=== PATIENT | female | born 1940 | race Caucasian/White ===

== ENCOUNTER → 2017-09-19 09:21 | Outpatient (CLI) | payer MEDICARE, SELFPAY ==
--- NOTE | 2017-09-19 | DI.RAD.S_ITS ---
PROCEDURE: XR SACROILIAC JOINT MIN 3V INDICATIONS: 77 year-old female with low back pain. TECHNIQUE: 3 views of the sacroiliac joints were acquired. COMPARISON: None. 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 No bony erosions or ankylosis. No suspicious bony lesions. No fractures. Soft tissues: Several right lower quadrant surgical clips are present. Overlying bowel gas pattern is normal. No suspicious soft tissue densities. IMPRESSION: Minimal bilateral sacroiliac joint degeneration. Dictated by: Elder Rivero M.D. on 09/19/2017 at 10:44 Approved by: Elder Rivero M.D. on 09/19/2017 at 10:46
== END ==
PROVIDERS: PCP Internal Medicine; Visit Provider Internal Medicine
DX: M47.818 Spondylosis without myelopathy or radiculopathy, sacral and sacrococcygeal region (principal); M54.5 Low back pain
CPT/HCPCS: 72202

== ENCOUNTER → 2017-10-18 08:50 | Outpatient (CLI) | payer MEDICARE, SELFPAY ==
[2017-10-18 10:15] LABS: Thyroid Stimulating Hormone 3.46 uIU/mL (0.47-4.68)
== END ==
PROVIDERS: PCP Internal Medicine; Visit Provider Internal Medicine
DX: E78.5 Hyperlipidemia, unspecified (principal); I10 Essential (primary) hypertension
CPT/HCPCS: 36415; 84443

== ENCOUNTER → 2018-05-03 13:22 | Outpatient (CLI) | payer MEDICARE, SELFPAY ==
[2018-05-03 13:53] LABS: Add Manual Diff / Slide Review NO; Basophils Absolute Auto 0 /uL (0-100); Basophils Percent Auto 0.6 % (0-2); Eosinophils Absolute Auto 300 /uL (0-450); Eosinophils Percent Auto 4.6 % (2-4); Hematocrit 44.1 % (36-46); Hemoglobin 14.8 g/dL (12.0-16.0); Lymphocytes Absolute Auto 1200 /uL (1100-4500); Mean Corpuscular HGB Conc 33.5 % (30-36); Mean Corpuscular Hemoglobin 32.4 PG (26-34); Mean Corpuscular Volume 96.5 fL (80-100); Monocytes Absolute Auto 600 /uL (0-900); Monocytes Percent Auto 9.1 % (3-14); Neutrophils Absolute Auto 4100 /uL (1500-7000); Neutrophils Percent Auto 66.7 % (50-75); Platelet Count 203 X10^3/uL (150-400); Red Blood Cell Count 4.57 X10^6/uL (4.0-5.2); Red Cell Distribution Width 13.5 % (11.6-14.8); White Blood Cell Count 6.2 X10^3/uL (4.5-11.0)
[2018-05-03 14:40] LABS: Alanine Aminotransferase 36 IU/L (9-52); Albumin 4.3 g/dL (3.5-5.0); Albumin Globulin Ratio 1.7 (1.0-2.8); Alkaline Phosphatase 72 U/L (38-126); Aspartate Aminotransferase 24 IU/L (14-36); BUN Creatinine Ratio 25.7 (6-22); Bilirubin Total 0.3 mg/dL (0.2-1.3); Blood Urea Nitrogen 18 mg/dL (7-17); Calcium 9.8 mg/dL (8.4-10.2); Carbon Dioxide 27 mmol/L (22-32); Chloride 103 mmol/L (98-107); Cholesterol 194 mg/dL (140-199); Estimated Glomerular Filt Rate > 60.0 mL/min (>60); Globulin 2.5 g/dL (1.7-4.1); Glucose 93 mg/dL (80-110); HDL Cholesterol 68 mg/dL (40-60); HEMOLYSIS < 15 (0-50); LDL Cholesterol Calculated 87 mg/dL (<100); Sodium 139 mmol/L (137-145); Total Protein 6.8 g/dL (6.3-8.2); Triglycerides 197 mg/dL (35-150)
[2018-05-03 14:55] LABS: Free T3, Triiodothyronine Free 2.96 pg/mL (2.77-5.27); Free T4, Direct Thyroxine 1.28 ng/dL (0.78-2.19)
[2018-05-03 15:09] LABS: Thyroid Stimulating Hormone 3.63 uIU/mL (0.47-4.68)
== END ==
PROVIDERS: PCP Internal Medicine; Visit Provider Internal Medicine
DX: I47.1 Supraventricular tachycardia (principal); E78.5 Hyperlipidemia, unspecified; E03.9 Hypothyroidism, unspecified; M19.079 Primary osteoarthritis, unspecified ankle and foot
CPT/HCPCS: 36415; 80053; 80061; 84439; 84443; 84481; 85025

== ENCOUNTER 2018-10-11 06:52 | Emergency (ER) | payer MEDICARE, SELFPAY ==
[2018-10-11 07:00] VITALS: BP 158/91; PULSE 77; RESP 18; TEMP 36.8; O2SAT 98; BMI 28.3
--- NOTE | 2018-10-11 07:00 | DI.RAD.S_ITS ---
PROCEDURE: XR CHEST 1V INDICATIONS: Chest pain TECHNIQUE: One view of the chest was acquired. COMPARISON: [facility], , CHEST 1 VIEW, 06/08/2017, 21:41. FINDINGS: Surgical changes and devices: Surgical clips projecting in the lower right hemithorax Lungs and pleura: No acute consolidation. Scattered subsegmental atelectasis and/or scarring. No pleural effusions or pneumothorax. Mediastinum: Mediastinal contours appear normal. Heart size is normal. Bones and chest wall: No suspicious bony lesions. Overlying soft tissues appear unremarkable. IMPRESSION: No acute disease Dictated by: Carlos Holt M.D. on 10/11/2018 at 9:11 Approved by: Carlos Holt M.D. on 10/11/2018 at 9:13
[2018-10-11 07:22] LABS: Add Manual Diff / Slide Review NO; Basophils Absolute Auto 0 /uL (0-100); Basophils Percent Auto 0.5 % (0-2); Eosinophils Absolute Auto 300 /uL (0-450); Eosinophils Percent Auto 5.4 % (2-4); Hematocrit 43.6 % (36-46); Hemoglobin 14.5 g/dL (12.0-16.0); Lymphocytes Absolute Auto 1100 /uL (1100-4500); Mean Corpuscular HGB Conc 33.3 % (30-36); Mean Corpuscular Hemoglobin 32.5 PG (26-34); Mean Corpuscular Volume 97.6 fL (80-100); Monocytes Absolute Auto 600 /uL (0-900); Monocytes Percent Auto 11.9 % (3-14); Neutrophils Absolute Auto 3000 /uL (1500-7000); Neutrophils Percent Auto 60.2 % (50-75); Platelet Count 183 X10^3/uL (150-400); Red Blood Cell Count 4.47 X10^6/uL (4.0-5.2); Red Cell Distribution Width 13.8 % (11.6-14.8)
--- NOTE | 2018-10-11 07:29 | ED_ITS ---
HPI - General Adult General Chief complaint: Hypertension Stated complaint: High blood pressure x2days Time Seen by Provider: 10/11/18 06:58 Source: patient Mode of arrival: ambulatory Limitations: no limitations History of Present Illness HPI narrative: This is a 79-year-old female who comes in with complaints of e levated blood pressure. Patient states that she has noted that her blood pressure has fell elevated recently. She states usually just feels a little agitated. Today she checked her blood pressure and it was greater than 200 systolic. She rejected and had elevated. This was at 5:30 a.m. in the morning when she woke up. Patient states that she has noticed occasionally that she has had a little bit more frequent heartburn. She states she has had in the past but not with this frequency. She states that she usually noted after meals but does not always have to be at that time. Patient has also noticed a little tingling in her right arm. She denies any pain or pressure down the arm. She denies any chest pressure or discomfort. She denies any symptoms currently. She notices the tingling in her arm typically when she is lying in bed. She denies any syncope, no dizziness, no nausea or vomiting. She denies any shortness of breath. No cold cough or congestion. She normally has little bit of swelling in her lower extremities which is its normal level of swelling. She denies any pain or weakness in her upper extremity. She did have an ablation 2 years ago and states that she has been asymptomatic since then. She does take metoprolol daily. She stop taking her aspirin, she does take thyroid medication in the rather pain as needed. She has a history of breast cancer with right mastectomy and reconstruction at a left lumpectomy and radiation. And cholecystectomy around 2012. No allergies, no tobacco, occasional alcohol, no illicit Dr. Ellis is her primary care. Dr. randy tamez and Dr. Rojas were Cardiology team. Related Data Home Medications Medication Instructions Recorded Confirmed ASPIRIN (#ASPIR 81) 81 mg PO Q DAY #0 01/18/12 CA PANTOTHENATE/FOLIC ACID/VIT 1 tab PO Q DAY #0 01/18/12 (MULTIVITAMIN) metoprolol tartrate [Lopressor] 25 mg PO BID #0 01/18/12 CALCIUM CITRATE/VITAMIN D3 500 mg PO QDAY #0 08/03/12 (Citracal-Vit D 250 MG-200 Tab) lorazepam PRN #0 01/27/16 vitamin D3-folic acid [Ciferex] #0 01/27/16 ibuprofen [Advil] #0 06/08/17 Review of Systems Review of Systems ROS Unobtainable: All systems reviewed & are unremarkable except as noted in HPI and below Constitutional Denies chills, Denies fever(s), Denies lethargy and Denies weakness ENT Ears, Nose, Mouth, and Throat: Denies neck pain Cardiovascular Denies chest pain, Denies chest pain at rest, Denies chest pain with activity, Denies diaphoresis, Denies syncope, Reports pedal edema, Denies irregular heart rhythm, Denies lightheadedness, Reports radiating jaw, neck or arm pain (tingling in arm), Denies palpitations, Denies dyspnea, Denies dyspnea on exertion and Denies orthopnea Respiratory Denies chest congestion, Denies cough, Denies excessive phlegm production, Denies dyspnea and Denies dyspnea on exertion Gastrointestinal Gastrointestinal: Denies abdominal pain, Denies change in bowel habits, Denies diarrhea, Denies nausea and Denies vomiting Genitourinary Denies urinary frequency, Denies dysuria, Denies urinary hesitancy and Denies urinary urgency Musculoskeletal Reports as per HPI, Denies limited range of motion, Denies muscle weakness, Denies neck pain, Denies numbness and Reports tingling Integumentary/Breasts Denies rash Neurologic Reports as per HPI, Denies syncope, Denies focal weakness, Denies numbness, Denies sensory deficit, Reports tingling and Denies weakness Endocrine Denies palpitations PFSH Surgical History (Updated 10/11/18 @ 07:38 by Bettye Frazier DO) H/O cardiac radiofrequency ablation (Chronic) H/O lumpectomy (Chronic) H/O mastectomy (Chronic) Hx of cholecystectomy (Chronic) Social History (Updated 10/11/18 @ 07:38 by Bettye Frazier DO) marital status: Smoking Status: Never smoker alcohol intake: current substance use type: does not use Social History (Updated 10/11/18 @ 07:38 by Bettye Frazier DO) marital status: Smoking Status: Never smoker alcohol intake: current substance use type: does not use Exam Narrative Exam Narrative: GENERAL: Alert and oriented x three, well-nourished, well-appearing female in no acute distress. HEENT: Head normocephalic, atraumatic, EOMI, pupils reactive, face symmetric, moist mucous membranes NECK: Supple, full range of motion CARDIOVASCULAR: Regular rate and rhythm without murmurs, rubs or gallops. RESPIRATORY: Breath sounds equal bilaterally, no wheezes rales or rhonchi. ABDOMEN: Soft, nontender. Normoactive bowel sounds all 4 quadrants. No guarding or rebound, rigidity, no mass : No CVA tenderness EXTREMITIES: Normal range of motion, trace edema bilateral lower extremities. Neurovascularly intact NEUROLOGICAL: Cranial nerves II through XII grossly intact. Moving all extremities SKIN: Warm, dry, no petechiae, no rashes or lesions. Initial Vital Signs Initial Vital Signs: Vital Signs Temperature 98.2 F 10/11/18 07:00 Pulse Rate 77 10/11/18 07:00 Respiratory Rate 18 10/11/18 07:00 Blood Pressure 158/91 H 10/11/18 07:00 Pulse Oximetry 98 10/11/18 07:00 Scores HEART Score Heart Score history: Slightly Suspicious Heart Score EKG: Non-Specific repolarization disturbance Heart Score Age: > or = 65 years old Heart Score risk factors: 1-2 risk factors Course Orders Ordered: ED Orders 10/11/18 06:58 EKG-12 Lead Stat 10/11/18 07:00 XR chest 1V Stat 10/11/18 07:10 Complete Blood Count AUTO DIFF Stat Comprehensive Metabolic Panel Stat Lipase Stat Partial Thromboplastin Time Stat Prothrombin Time INR Stat Thyroid Stimulating Hormone Stat Troponin I Stat Vital Signs - 8 hr 10/11/18 07:00 10/11/18 07:30 10/11/18 08:11 Temperature 98.2 F Pulse Rate 77 70 69 Respiratory Rate 18 16 14 Blood Pressure 158/91 H Blood Pressure [Left Arm] 135/77 144/64 H Pulse Oximetry 98 98 100 10/11/18 08:41 Temperature Pulse Rate 70 Respiratory Rate 15 Blood Pressure Blood Pressure [Left Arm] 158/72 H Pulse Oximetry Medical Decision Making Lab Data Lab results reviewed: Yes I reviewed the patient's lab results. Result diagrams: 10/11/18 07:10 10/11/18 07:10 Lab Results 07/18/19 07/18/19 07/18/19 Range/Units 07:10 07:10 07:10 WBC 5.0 (4.5-11.0) X10^3/uL RBC 4.47 (4.0-5.2) X10^6/uL Hgb 14.5 (12.0-16.0) g/dL Hct 43.6 (36-46) % MCV 97.6 (80-100) fL MCH 32.5 (26-34) PG MCHC 33.3 (30-36) % RDW 13.8 (11.6-14.8) % Plt Count 183 (150-400) X10^3/uL Neut % (Auto) 60.2 (50-75) % Lymph % (Auto) 22.0 L (25-40) % [place] % (Auto) 11.9 (3-14) % Eos % (Auto) 5.4 H (2-4) % Baso % (Auto) 0.5 (0-2) % Neut # (Auto) 3000 (0928-5608) /uL Lymph # (Auto) 1100 (0722-4702) /uL [place] # (Auto) 600 (0-900) /uL Eos # (Auto) 300 (0-450) /uL Baso # (Auto) 0 (0-100) /uL PT 11.0 (10.1-12.7) SECONDS INR 1.0 (0.9-1.3) APTT 32 (26.4-36.2) SECONDS Sodium 141 (137-145) mmol/L Potassium 4.1 (3.4-5.1) mmol/L Chloride 107 (98-107) mmol/L Carbon Dioxide 26 (22-32) mmol/L BUN 16 (7-17) mg/dL Creatinine 0.70 (0.52-1.04) mg/dL Estimated GFR > 60.0 (>60) mL/min BUN/Creatinine Ratio 22.9 H (6-22) Glucose 101 (80-110) mg/dL Calcium 9.5 (8.4-10.2) mg/dL Total Bilirubin 0.7 (0.2-1.3) mg/dL AST 27 (14-36) IU/L ALT 29 (9-52) IU/L Alkaline Phosphatase 64 (38-126) U/L Troponin I (0.01-0.034) ng/mL Total Protein 6.9 (6.3-8.2) g/dL Albumin 4.3 (3.5-5.0) g/dL Globulin 2.6 (1.7-4.1) g/dL Albumin/Globulin Ratio 1.7 (1.0-2.8) Lipase (23-300) U/L TSH (0.47-4.68) uIU/mL 10/11/18 10/11/18 Range/Units 07:10 07:10 WBC (4.5-11.0) X10^3/uL RBC (4.0-5.2) X10^6/uL Hgb (12.0-16.0) g/dL Hct (36-46) % MCV (80-100) fL MCH (26-34) PG MCHC (30-36) % RDW (11.6-14.8) % Plt Count (150-400) X10^3/uL Neut % (Auto) (50-75) % Lymph % (Auto) (25-40) % [place] % (Auto) (3-14) % Eos % (Auto) (2-4) % Baso % (Auto) (0-2) % Neut # (Auto) (2387-0399) /uL Lymph # (Auto) (0159-7067) /uL [place] # (Auto) (0-900) /uL Eos # (Auto) (0-450) /uL Baso # (Auto) (0-100) /uL PT (10.1-12.7) SECONDS INR (0.9-1.3) APTT (26.4-36.2) SECONDS Sodium (137-145) mmol/L Potassium (3.4-5.1) mmol/L Chloride (98-107) mmol/L Carbon Dioxide (22-32) mmol/L BUN (7-17) mg/dL Creatinine (0.52-1.04) mg/dL Estimated GFR (>60) mL/min BUN/Creatinine Ratio (6-22) Glucose (80-110) mg/dL Calcium (8.4-10.2) mg/dL Total Bilirubin (0.2-1.3) mg/dL AST (14-36) IU/L ALT (9-52) IU/L Alkaline Phosphatase (38-126) U/L Troponin I < 0.012 (0.01-0.034) ng/mL Total Protein (6.3-8.2) g/dL Albumin (3.5-5.0) g/dL Globulin (1.7-4.1) g/dL Albumin/Globulin Ratio (1.0-2.8) Lipase 97 (23-300) U/L TSH 3.45 (0.47-4.68) uIU/mL Imaging Data Chest x-ray: Attestation: I personally reviewed and interpreted this imaging study as follows: My impression: cardiomegaly,m FB consistent with past surgical history, no infitate, no effusion, no fx. no pneumothorax, no medistanal widening. Radiologist's impression: [address] [address] XRay Report Signed Patient: Delmy Veras [facility]#: [id number] : 1940Acct:[id number] Age/Sex: 78 / FDate of Service: 10/11/18 Loc: ED Accession Number: [id number] Procedure: XR chest 1V Ordering Provider: Daniele Rae D.O. PROCEDURE: XR CHEST 1V INDICATIONS: Chest pain TECHNIQUE: One view of the chest was acquired. COMPARISON: [facility] , CHEST 1 VIEW, 06/08/2017, 21:41. FINDINGS: Surgical changes and devices: Surgical clips projecting in the lower right hemithorax Lungs and pleura: No acute consolidation. Scattered subsegmental atelectasis and/or scarring. No pleural effusions or pneumothorax. Mediastinum: Mediastinal contours appear normal. Heart size is normal. Bones and chest wall: No suspicious bony lesions. Overlying soft tissues appear unremarkable. IMPRESSION: No acute disease Dictated by: Carlos Holt M.D. on 10/11/2018 at 9:11 Approved by: Carlos Holt M.D. on 10/11/2018 at 9:13 ECG Data Attestation: I personally reviewed and interpreted this ECG as follows: Prior ECG tracings: available for review Interpretation: Sinus rhythm rate of 74 P are 205 QRS of 103 and QTC of 393. Patient has Q-wave in [address] and AVF. No other ST changes appreciated. Patient has prior EKG from 06/09/2017 which appears similar and shows same changes in leads 3 and AVF. MDM Narrative Medical decision making narrative: Discussed with patient I would recommend at minimum a repeat 2 hour troponin and EKG. Her symptoms are fairly vague under concern is for her blood pressure which was slightly elevated when she arrived but not as high as she was concerned at home. We did discuss that there is a good possibility this could be cardiac in nature, recommended she follow-up in the short term with her primary care discuss stress testing. Patient is comfortable with this plan. She does not wish to do repeat troponin she has other activities that she needs to take care of today. Her EKG does not show any acute changes, troponin is negative with normal blood work otherwise. Chest x-ray does show cardiomegaly but does appear similar to prior. Discharge Plan Departure Patient Disposition: Home Clinical Impression: Hypertension Discharge Date/Time: 10/11/18 08:41 Interventions: ED Discharge Assessment Last Done: 10/11/18 08:41 Instructions: DI for High Blood Pressure Activity Restrictions/Additional Instructions: Follow-up with your primary care physician in the next 24-48 hours for recheck. I have recommend discussing stress testing with them. Continue home medication as prescribed. I do recommend taking a daily 81 mg aspirin until cleared by your physician. Return to the emergency department for new or worsening symptoms, new chest pain or pressure, shortness of breath, lightheadedness or passing-out, persistent vomiting, abdominal pain, black or bloody stools, new weakness numbness or difficulty with use of your extremities or other new or concerning symptoms. Prescriptions: No Action metoprolol tartrate [Lopressor] 50 MG tablet 25 mg PO BID Qty: 0 RF: 0 CA PANTOTHENATE/FOLIC ACID/VIT (MULTIVITAMIN) 1 tab PO Q DAY Qty: 0 RF: 0 ASPIRIN (#ASPIR 81) 81 mg PO Q DAY Qty: 0 RF: 0 CALCIUM CITRATE/VITAMIN D3 (Citracal-Vit D 250 MG-200 Tab) 500 mg PO QDAY Qty: 0 RF: 0 lorazepam 0.5 MG tablet PRNQty: 0 RF: 0 vitamin D3-folic acid [Ciferex] 3,775 UNITS/1 MG capsule Qty: 0 RF: 0 ibuprofen [Advil] 200 MG tablet Qty: 0 RF: 0 Referrals: Michael Ellis MD [Primary Care Provider] -
[2018-10-11 07:30] VITALS: BP 135/77; PULSE 70; RESP 16; O2SAT 98
[2018-10-11 07:31] LABS: PTT Partial Thromboplastin Tim 32 SECONDS (26.4-36.2)
[2018-10-11 07:32] LABS: Lipase 97 U/L (23-300)
[2018-10-11 07:33] LABS: Alanine Aminotransferase 29 IU/L (9-52); Albumin 4.3 g/dL (3.5-5.0); Albumin Globulin Ratio 1.7 (1.0-2.8); Alkaline Phosphatase 64 U/L (38-126); Aspartate Aminotransferase 27 IU/L (14-36); BUN Creatinine Ratio 22.9 (6-22); Bilirubin Total 0.7 mg/dL (0.2-1.3); Blood Urea Nitrogen 16 mg/dL (7-17); Calcium 9.5 mg/dL (8.4-10.2); Carbon Dioxide 26 mmol/L (22-32); Chloride 107 mmol/L (98-107); Estimated Glomerular Filt Rate > 60.0 mL/min (>60); Globulin 2.6 g/dL (1.7-4.1); Glucose 101 mg/dL (80-110); HEMOLYSIS < 15 (0-50); Potassium 4.1 mmol/L (3.4-5.1); Sodium 141 mmol/L (137-145); Total Protein 6.9 g/dL (6.3-8.2)
[2018-10-11 07:44] LABS: Troponin I < 0.012 ng/mL (0.01-0.034)
[2018-10-11 08:11] VITALS: BP 144/64; PULSE 69; RESP 14; O2SAT 100
[2018-10-11 08:32] LABS: Thyroid Stimulating Hormone 3.45 uIU/mL (0.47-4.68)
[2018-10-11 08:41] VITALS: BP 158/72; PULSE 70; RESP 15
== END 2018-10-11 08:41 | disposition home or self-care (01) ==
PROVIDERS: Emergency Medicine; Emergency Provider Emergency Medicine; PCP Internal Medicine
DX: I10 Essential (primary) hypertension (principal); R20.0 Anesthesia of skin; R12 Heartburn
CPT/HCPCS: 36591; 71045; 80053; 83690; 84443; 84484; 85025; 85610; 85730; 93005; 99283; 99285

== ENCOUNTER → 2018-12-20 09:26 | Outpatient (CLI) | payer MEDICARE, SELFPAY ==
[2018-12-20 10:52] LABS: Add Manual Diff / Slide Review NO; Basophils Absolute Auto 0 /uL (0-100); Basophils Percent Auto 0.5 % (0-2); Eosinophils Absolute Auto 200 /uL (0-450); Eosinophils Percent Auto 4.6 % (2-4); Hematocrit 43.1 % (36-46); Hemoglobin 14.5 g/dL (12.0-16.0); Lymphocytes Absolute Auto 900 /uL (1100-4500); Mean Corpuscular HGB Conc 33.6 % (30-36); Mean Corpuscular Hemoglobin 33.1 PG (26-34); Mean Corpuscular Volume 98.3 fL (80-100); Monocytes Absolute Auto 600 /uL (0-900); Monocytes Percent Auto 11.1 % (3-14); Neutrophils Absolute Auto 3400 /uL (1500-7000); Neutrophils Percent Auto 66.8 % (50-75); Platelet Count 187 X10^3/uL (150-400); Red Blood Cell Count 4.39 X10^6/uL (4.0-5.2); Red Cell Distribution Width 12.8 % (11.6-14.8); White Blood Cell Count 5.1 X10^3/uL (4.5-11.0)
[2018-12-20 11:20] LABS: Cholesterol 197 mg/dL (140-199); HDL Cholesterol 66 mg/dL (40-60); LDL Cholesterol Calculated 110 mg/dL (<100); Triglycerides 104 mg/dL (35-150)
[2018-12-20 11:24] LABS: High Sensitivity CRP - Cardiac 5.9 mg/L (1.0-3.0)
[2018-12-20 11:34] LABS: Alanine Aminotransferase 30 IU/L (9-52); Albumin 4.3 g/dL (3.5-5.0); Albumin Globulin Ratio 1.7 (1.0-2.8); Alkaline Phosphatase 62 U/L (38-126); Aspartate Aminotransferase 31 IU/L (14-36); BUN Creatinine Ratio 24.3 (6-22); Bilirubin Total 0.5 mg/dL (0.2-1.3); Blood Urea Nitrogen 17 mg/dL (7-17); Calcium 10.2 mg/dL (8.4-10.2); Carbon Dioxide 29 mmol/L (22-32); Chloride 103 mmol/L (98-107); Estimated Glomerular Filt Rate > 60.0 mL/min (>60); Globulin 2.5 g/dL (1.7-4.1); Glucose 66 mg/dL (80-110); HEMOLYSIS < 15 (0-50); Potassium 4.8 mmol/L (3.4-5.1); Sodium 141 mmol/L (137-145); Total Protein 6.8 g/dL (6.3-8.2)
[2018-12-20 11:37] LABS: Vitamin D 25 Hydroxy (D3) 65.4 ng/mL (30.0-100.0)
[2018-12-20 12:04] LABS: TSH w/ Reflex to FT4 3.92 uIU/mL (0.47-4.68)
== END ==
PROVIDERS: PCP Internal Medicine; Visit Provider Internal Medicine
DX: I47.1 Supraventricular tachycardia (principal)
CPT/HCPCS: 36415; 80053; 80061; 82306; 84443; 85025; 86140

== ENCOUNTER → 2019-01-28 08:05 | Outpatient (CLI) | payer MEDICARE, SELFPAY ==
--- NOTE | 2019-01-28 09:25 | PM.TREADMILL ---
Cardiac Stress Test Report Referral & Results Date Patient Seen: 01/28/19 Requesting provider: Maegan Canas Indication: SVT Rest ECG: Unremarkable Procedure Note: Today following both written and verbal informed consent the patient was exercised according to a standard Delfino protocol patient went for a total of 5 minutes 42 seconds achieving a maximum heart rate of 165 maximum systolic blood pressure of 190. This is approximately 7.0 METS. Exercise was terminated at this point because of targets were met. Patient was also given Cardiolite through a previously started Hep-Lock IV by the diagnostic imaging staff approximately 1 minute prior to the cessation of exercise. There are no ST-T segment changes Normal heart rate and blood pressure response to exercise Functional aerobic impairment rated-10% on the active scale In recovery come patient had frequent PVCs including what appeared to be a 15-20 beat run of ventricular tachycardia that was asymptomatic and aborted with a cough, and then PVCs seemed to disappear No supraventricular dysrhythmias identified Impression: No evidence of ischemia Excellent exercise capacity Please see perfusion imaging report as well for details regarding possible ischemia Ventricular dysrhythmia as above, suggest 7-14 day cardiac exercise specialist as well Please note: Actual ECG tracings can be found in the PACS system.
--- NOTE | 2019-01-30 14:02 | DI.NM.S_ITS ---
DATE OF SERVICE: 01/28/2019 PROCEDURE PERFORMED: Exercise treadmill stress and rest myocardial perfusion imaging study with gating to assess ejection fraction and regional wall motion. ORDERING PROVIDER: Maegan Canas MD INDICATIONS: The patient is a 78-year-old female with exertional fatigue and arrhythmias. EXERCISE TREADMILL TESTING: The patient was able to exercise for a total of 5 minutes 42 seconds on a standard Delfino protocol suggesting good exercise capacity with an SAL of -10%. She had a normal heart rate and blood pressure response, achieving a maximum heart rate of 143 bpm (100% of her predicted maximum). She had no chest discomfort. Her resting ECG appears normal. With stress, there are no obvious ST-segment shifts. In recovery, she has frequent wide QRS beats, at times consecutively, although not fully recorded. These may represent PVCs or aberrant conduction. There were no other arrhythmias. At 4 minutes 35 seconds of exercise, at heart rate of 143 bpm, 25.1 mCi of technetium-99 Myoview was injected, and the patient was imaged 20 minutes later using a gated acquisition protocol. She returned to days later and was reinjected with an additional 23.6 mCi of technetium-99 Myoview and was imaged 30 minutes later, again using a gated SPECT acquisition protocol. FINDINGS: 1. Raw Data: There is fairly good myocardial tracer uptake. The lung/heart ratio is normal at 0.39 with a normal TID ratio of 0.75. 2. Quantitative Gated SPECT: Post stress ejection fraction appears normal with an ejection fraction of 77% without any focal wall motion abnormality. The resting ejection fraction is 65% with a resting end-diastolic volume of 96 mL. 3. Myocardial Perfusion Imaging: Post stress supine images show a normal perfusion pattern without any perfusion defects, supported by normal perfusion imaging in the prone position. The resting images show a similar perfusion pattern without any significant areas of improvement. IMPRESSION: 1. Normal myocardial perfusion study. 2. No evidence for any myocardial ischemia or previous myocardial infarction. 3. Normal left ventricular systolic function without regional wall motion abnormality. 4. Good exercise capacity without angina. In recovery, she had frequent wide QRS beats which could reflect premature ventricular contractions (PVCs), at times consecutively, or aberrant conduction. Clinical correlation is recommended. 5. Compared to the previous myocardial perfusion study of 07/22/2014, perfusion imaging appears identical with a previousl post stress ejection fraction of 81% and no perfusion abnormalities seen then. There has been no significant change. Delmy Veras - ROXANE/renny/ doc#: [id number]/job#: [id number] dd: 01/30/2019 12:54:00 dt: 01/30/2019 13:46:00 DICTATING MD/COPIES TO: Bill Fontanez MD; Miriam Canas MD COPIES MNE: RENEE GEORGES
== END ==
PROVIDERS: PCP Internal Medicine; Visit Provider Internal Medicine
DX: I47.1 Supraventricular tachycardia (principal); R53.83 Other fatigue; E78.5 Hyperlipidemia, unspecified; M62.89 Other specified disorders of muscle
CPT/HCPCS: 78452; 93016; 93017; 93018; A9502

== ENCOUNTER → 2019-02-05 14:14 | Outpatient (ROUT) | payer MEDICARE, SELFPAY ==
[2019-02-05 14:36] LABS: Blood Urea Nitrogen 14 mg/dL (7-17); Carbon Dioxide 28 mmol/L (22-32); Chloride 103 mmol/L (98-107); Estimated Glomerular Filt Rate > 60.0 mL/min (>60); Glucose 93 mg/dL (80-110); HEMOLYSIS < 15 (0-50); Potassium 4.4 mmol/L (3.4-5.1); Sodium 140 mmol/L (137-145)
[2019-02-05 14:54] LABS: Free T3, Triiodothyronine Free 3.72 pg/mL (2.77-5.27); Free T4, Direct Thyroxine 1.22 ng/dL (0.78-2.19)
[2019-02-05 15:07] LABS: Thyroid Stimulating Hormone 5.73 uIU/mL (0.47-4.68)
== END ==
PROVIDERS: PCP Internal Medicine; Visit Provider Internal Medicine
DX: F41.9 Anxiety disorder, unspecified (principal); E78.5 Hyperlipidemia, unspecified; E03.9 Hypothyroidism, unspecified; I47.1 Supraventricular tachycardia; M19.079 Primary osteoarthritis, unspecified ankle and foot; I10 Essential (primary) hypertension
CPT/HCPCS: 80048; 84439; 84443; 84481

== ENCOUNTER → 2019-12-10 15:00 | Outpatient (ROUT) | payer MEDICARE, SELFPAY ==
[2019-12-10 15:20] LABS: Hematocrit 43.4 % (36-46); Hemoglobin 14.5 g/dL (12.0-16.0); Mean Corpuscular HGB Conc 33.3 % (30-36); Mean Corpuscular Hemoglobin 32.6 PG (26-34); Mean Corpuscular Volume 97.9 fL (80-100); Platelet Count 194 X10^3/uL (150-400); Red Blood Cell Count 4.43 X10^6/uL (4.0-5.2); Red Cell Distribution Width 13.3 % (11.6-14.8); White Blood Cell Count 5.6 X10^3/uL (4.5-11.0)
[2019-12-10 15:29] LABS: Alanine Aminotransferase 26 IU/L (<35); Albumin 4.1 g/dL (3.5-5.0); Albumin Globulin Ratio 1.6 (1.0-2.8); Alkaline Phosphatase 71 U/L (38-126); Aspartate Aminotransferase 29 IU/L (14-36); BUN Creatinine Ratio 24.6 (6-22); Bilirubin Total 0.5 mg/dL (0.2-1.3); Blood Urea Nitrogen 17 mg/dL (7-17); Calcium 9.7 mg/dL (8.4-10.2); Carbon Dioxide 30 mmol/L (22-32); Chloride 105 mmol/L (98-107); Estimated Glomerular Filt Rate > 60.0 mL/min (>60); Globulin 2.6 g/dL (1.7-4.1); Glucose 88 mg/dL (80-110); HEMOLYSIS < 15 (0-50); Potassium 4.8 mmol/L (3.4-5.1); Sodium 140 mmol/L (137-145); Total Protein 6.7 g/dL (6.3-8.2)
[2019-12-10 15:30] LABS: Neutrophils Absolute Manual 3752 /uL (3000-5900); RBC Morphology Normal Morphology; Total Cells Counted 100
[2019-12-10 15:59] LABS: TSH w/ Reflex to FT4 7.33 uIU/mL (0.47-4.68)
[2019-12-10 16:58] LABS: Free T4, Direct Thyroxine 1.01 ng/dL (0.78-2.19)
[2019-12-11 07:56] LABS: Cancer Antigen 27.29 25.5 U/mL (0.0-38.6)
== END ==
PROVIDERS: PCP Internal Medicine; Visit Provider Internal Medicine
DX: I47.1 Supraventricular tachycardia (principal); E78.5 Hyperlipidemia, unspecified; E03.9 Hypothyroidism, unspecified; Z85.3 Personal history of malignant neoplasm of breast
CPT/HCPCS: 80053; 84439; 84443; 85025; 86300

== ENCOUNTER → 2020-01-09 16:05 | Outpatient (CLI) | payer MEDICARE, SELFPAY ==
--- NOTE | 2020-01-09 16:06 | DI.MG.S_ITS ---
UNILATERAL LEFT DIGITAL SCREENING MAMMOGRAM 3D/2D WITH CAD: 01/09/2020 CLINICAL: Routine screening. Personal history of bilateral breast cancer. Family history of breast cancer. Comparison is made to exams dated: 11/24/2016 mammogram, 12/11/2017 mammogram, and 12/17/2018 mammogram - outside location. The tissue of left breast is heterogeneously dense. This may lower the sensitivity of mammography. Current study was also evaluated with a Computer Aided Detection (CAD) system. There are benign post operative findings in the left breast. No significant masses, calcifications, or other findings are seen in the breast. There has been no significant interval change. IMPRESSION: BENIGN There is no mammographic evidence of malignancy. A 1 year screening mammogram is recommended. This exam was interpreted at Station ID: [id number]. NOTE: For mammograms, a report in lay terms will be sent to the patient. Approximately 15% of breast malignancies will not be visualized mammographically. In the management of a palpable breast mass, a negative mammogram must not discourage biopsy of a clinically suspicious lesion. Electronically Signed By: Connie mahan/remigio:01/09/2020 16:48:47 letter sent: Normal Exam ACR BI-RADS Category 2: Benign Finding(s) 3342F
== END ==
PROVIDERS: PCP Internal Medicine; Referring Provider Internal Medicine; Visit Provider Internal Medicine
DX: Z12.31 Encounter for screening mammogram for malignant neoplasm of breast (principal); Z85.3 Personal history of malignant neoplasm of breast; Z80.3 Family history of malignant neoplasm of breast
CPT/HCPCS: 77063; 77067

== ENCOUNTER → 2020-02-24 10:55 | Outpatient (CLI) | payer MEDICARE, SELFPAY ==
[2020-02-24 13:37] LABS: TSH w/ Reflex to FT4 4.69 uIU/mL (0.47-4.68)
[2020-02-24 14:03] LABS: Free T4, Direct Thyroxine 1.29 ng/dL (0.78-2.19)
== END ==
PROVIDERS: PCP Internal Medicine; Referring Provider Internal Medicine; Visit Provider Internal Medicine
DX: E03.9 Hypothyroidism, unspecified (principal)
CPT/HCPCS: 36415; 84439; 84443

== ENCOUNTER → 2020-04-30 11:25 | Outpatient (CLI) | payer MEDICARE, SELFPAY ==
[2020-04-30 12:53] LABS: TSH w/ Reflex to FT4 3.89 uIU/mL (0.47-4.68)
== END ==
PROVIDERS: PCP Internal Medicine; Referring Provider Internal Medicine; Visit Provider Internal Medicine
DX: E03.9 Hypothyroidism, unspecified (principal)
CPT/HCPCS: 36415; 84443

== ENCOUNTER → 2020-11-02 08:00 | Outpatient (CLI) | payer MEDICARE, SELFPAY ==
[2020-11-02 08:18] LABS: Add Manual Diff / Slide Review NO; Basophils Absolute Auto 0 /uL (0-100); Basophils Percent Auto 0.7 % (0-2); Eosinophils Absolute Auto 300 /uL (0-450); Eosinophils Percent Auto 6.8 % (2-4); Hematocrit 44.4 % (36-46); Hemoglobin 14.9 g/dL (12.0-16.0); Lymphocytes Absolute Auto 1000 /uL (1100-4500); Lymphocytes Percent Auto 23.2 % (25-40); Mean Corpuscular HGB Conc 33.5 % (30-36); Mean Corpuscular Hemoglobin 32.9 PG (26-34); Mean Corpuscular Volume 98.3 fL (80-100); Monocytes Absolute Auto 500 /uL (0-900); Monocytes Percent Auto 12.1 % (3-14); Neutrophils Absolute Auto 2400 /uL (1500-7000); Neutrophils Percent Auto 57.2 % (50-75); Platelet Count 158 X10^3/uL (150-400); Red Blood Cell Count 4.52 X10^6/uL (4.0-5.2); Red Cell Distribution Width 13.1 % (11.6-14.8); White Blood Cell Count 4.2 X10^3/uL (4.5-11.0)
[2020-11-02 08:53] LABS: Alanine Aminotransferase 19 IU/L (<35); Albumin 4.2 g/dL (3.5-5.0); Albumin Globulin Ratio 1.5 (1.0-2.8); Alkaline Phosphatase 67 U/L (38-126); Aspartate Aminotransferase 24 IU/L (14-36); BUN Creatinine Ratio 27.3 (6-22); Bilirubin Total 0.6 mg/dL (0.2-1.3); Blood Urea Nitrogen 18 mg/dL (7-17); Calcium 9.6 mg/dL (8.4-10.2); Carbon Dioxide 26 mmol/L (22-32); Chloride 108 mmol/L (98-107); Cholesterol 208 mg/dL (140-199); Estimated Glomerular Filt Rate > 60.0 mL/min (>60); Globulin 2.8 g/dL (1.7-4.1); Glucose 96 mg/dL (80-110); HDL Cholesterol 71 mg/dL (40-60); HEMOLYSIS < 15 (0-50); LDL Cholesterol Calculated 117 mg/dL (<100); Potassium 4.2 mmol/L (3.4-5.1); Sodium 140 mmol/L (137-145); Triglycerides 99 mg/dL (35-150)
== END ==
PROVIDERS: PCP Physician Assistant; Referring Provider Physician Assistant; Visit Provider Physician Assistant
DX: E78.5 Hyperlipidemia, unspecified (principal); E03.9 Hypothyroidism, unspecified
CPT/HCPCS: 36415; 80053; 80061; 84443; 85025

== ENCOUNTER 2020-11-13 09:22 | Emergency (ER) | payer MEDICARE, SELFPAY ==
[2020-11-13 09:31] VITALS: BP 146/77; PULSE 72; RESP 14; TEMP 37.2; O2SAT 96; BMI 27.4
--- NOTE | 2020-11-13 11:08 | ED_ITS ---
HPI - Extremity Injury (Upper) General Chief Complaint: Extremity Injury, Upper Stated Complaint: LT SHOULDER PAIN/DOWN ARM AND ACROSS BACK Time Seen by Provider: 11/13/20 11:07 Source: patient Mode of arrival: Ambulatory Limitations: no limitations History of Present Illness HPI narrative: This is a 80-year-old female comes emergency department with complaint of left upper thoracic pain that is intermittent and is worsened with movement. Patient states that it began after moving a fairly light weight desk. Patient states she had symptoms that evening or following day. Since then she has had pain that will sometimes radiate down her left arm. It is worse at night. Patient states that she will typically wake up in the evening, put moist heat on the area and it will typically improved but has becoming more frequent and persistent she has even had some episodes today during the daytime. She did have some tightness during the day. She denies any radiation to the anterior chest. No lightheadedness, no passing out, no diaphoresis. No shortness of breath. No chest pain or pressure. Patient denies any nausea, no vomiting. No other GI or urinary symptoms. She has noted some mild tingling in her left upper extremity. Patient does have a history of SVT she had an ablation sometime around 2017 and has not had any additional episodes since then. She is on metoprolol as well as a daily aspirin and some oral vitamins. She denies any allergies to medications. She has not had similar symptoms in the past. Related Data Home Medications Medication Instructions Recorded Confirmed ASPIRIN (#ASPIR 81) 81 mg PO Q DAY #0 01/18/12 CA PANTOTHENATE/FOLIC ACID/VIT 1 tab PO Q DAY #0 01/18/12 (MULTIVITAMIN) metoprolol tartrate 50 mg tablet 25 mg PO BID #0 01/18/12 (Lopressor) CALCIUM CITRATE/VITAMIN D3 500 mg PO QDAY #0 08/03/12 (Citracal-Vit D 250 MG-200 Tab) lorazepam 0.5 mg tablet PRN #0 01/27/16 vitamin D3 94.38 mcg (3,775 #0 01/27/16 unit)-folic acid 1 mg capsule (Ciferex) ibuprofen 200 mg tablet (Advil) #0 06/08/17 Previous Rx's Medication Instructions Recorded lidocaine 5 % topical patch 1 patch TOPICAL DAILY PRN #15 ea 11/13/20 prednisone 10 mg tablet 10 mg PO DAILY #5 tab 11/13/20 tramadol 50 mg tablet (Ultram) 50 mg PO Q6H PRN #10 tab 11/13/20 Allergies Allergy/AdvReac Type Severity Reaction Status Date / Time No Known Drug Allergies Allergy Verified 11/13/20 09:41 Review of Systems Review of Systems ROS Unobtainable: All systems reviewed & are unremarkable except as noted in HPI and below Patient History Surgical History H/O cardiac radiofrequency ablation H/O lumpectomy H/O mastectomy Hx of cholecystectomy Social History marital status: Smoking Status: Never smoker alcohol intake: current substance use type: does not use Smoking Status: Never smoker alcohol intake frequency: a few times a week Substance Use Type: does not use Exam Narrative Exam Narrative: GENERAL: Alert and oriented x three, female in mild distress. HEENT: Head normocephalic, atraumatic, EOMI, pupils reactive, face symmetric, moist mucous membranes NECK: Supple, full range of motion CARDIOVASCULAR: Regular rate and rhythm without murmurs, rubs or gallops. RESPIRATORY: Breath sounds equal bilaterally, no wheezes rales or rhonchi. ABDOMEN: Soft, nontender. Normoactive bowel sounds all 4 quadrants. No guarding or rebound, rigidity, no mass : No CVA tenderness BACK: No cervical, thoracic or lumbar vertebral point tenderness. Patient does have some point tenderness of the left thoracic between the spine and the scapula with a knot of muscle palpated. This does reproduce patient's symptoms. Patient has normal range of motion. Patient's gait is normal. 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 Sensations intact bilateral upper extremities. No swelling, no edema or other changes noted. EXTREMITIES: Normal range of motion, no clubbing or edema. Neurovascularly intact NEUROLOGICAL: Cranial nerves II through XII grossly intact. Moving all extremities SKIN: Warm, dry, no petechiae, no rashes or lesions. Initial Vital Signs Initial Vital Signs: Vital Signs Temperature 98.9 F 11/13/20 09:31 Pulse Rate 72 11/13/20 09:31 Respiratory Rate 14 11/13/20 09:31 Blood Pressure 146/77 H 11/13/20 09:31 Pulse Oximetry 96 11/13/20 09:31 Course Vital Signs Vital signs: Vital Signs - 8 hr 11/13/20 11:33 Pulse Rate 68 Respiratory Rate 16 Blood Pressure 168/82 H Pulse Oximetry 98 MDM - Extremity Injury (Upper) MDM Narrative Medical decision making narrative: This is an 80-year-old female comes with reproducible left thoracic pain. Patient's symptoms seem more consistent with musculoskeletal findings. We did discuss possible workup for cardiac evaluation although my suspicion is somewhat low and patient defers. We did discuss reasons to return. Plan for lidocaine patch. Short prescription of Ultram for breakthrough pain and patient can continue with her Tylenol at home. Discharge Plan Departure Patient Disposition: Home Clinical Impression: Acute left-sided thoracic back pain Instructions: Thoracic Back Pain Activity Restrictions/Additional Instructions: Follow up with your physician for recheck. Call for an appointment. I do suspect to have some impingement of the nerve this causing pain radiating down your arm. You may continue with your Tylenol and/or Aleve for pain. You may use a lidocaine patch to the affected area once daily. If this is an adequate you may take oral pain medication as prescribed. This medication can make you sleepy do not drive, perform hazardous activities or make any major decisions while taking it. This medication will make you constipated please take a stool softener once to twice daily until stools are soft and regular. Prescription sent to [facility] in [place]. Please return for fevers, rapidly worsening symptoms, new chest pain, shortness of breath, lightheadedness or passing out, diaphoresis or sweating, new numbness, weakness or inability dropped your extremities, loss of bowel or bladder control, dropping objects or other new or concerning symptoms. Prescriptions: New lidocaine 5 % adhesive patch,medicated 1 patch topical DAILY PRN (Reason: pain) Qty: 15 RF: 0 tramadol [Ultram] 50 mg tablet 50 mg PO Q6H PRN (Reason: pain) Qty: 10 RF: 0 prednisone 10 mg tablet 10 mg PO DAILY Qty: 5 RF: 0 No Action metoprolol tartrate [Lopressor] 50 MG tablet 25 mg PO BID Qty: 0 RF: 0 CA PANTOTHENATE/FOLIC ACID/VIT (MULTIVITAMIN) 1 tab PO Q DAY Qty: 0 RF: 0 ASPIRIN (#ASPIR 81) 81 mg PO Q DAY Qty: 0 RF: 0 CALCIUM CITRATE/VITAMIN D3 (Citracal-Vit D 250 MG-200 Tab) 500 mg PO QDAY Qty: 0 RF: 0 lorazepam 0.5 MG tablet PRNQty: 0 RF: 0 vitamin D3-folic acid [Ciferex] 3,775 UNITS/1 MG capsule Qty: 0 RF: 0 ibuprofen [Advil] 200 MG tablet Qty: 0 RF: 0 Referrals: Mary Yusuf PA-C [Primary Care Provider] -
[2020-11-13 11:33] VITALS: BP 168/82; PULSE 68; RESP 16; O2SAT 98
== END 2020-11-13 11:44 | disposition home or self-care (01) ==
PROVIDERS: Emergency Provider Emergency Medicine; PCP Physician Assistant
DX: M54.6 Pain in thoracic spine (principal)
CPT/HCPCS: 99281

== ENCOUNTER → 2021-03-10 10:18 | Outpatient (CLI) | payer MEDICARE, SELFPAY ==
--- NOTE | 2021-03-10 | DI.MG.S_ITS ---
UNILATERAL LEFT DIGITAL SCREENING MAMMOGRAM 3D/2D WITH CAD POST MASTECTOMY: 03/10/2021 CLINICAL: Routine screening. Personal history of right breast cancer. Family history of breast cancer. Comparison is made to exams dated: 01/09/2020 mammogram - [facility], 12/17/2018 mammogram, and 12/11/2017 mammogram - outside location. The tissue of left breast is heterogeneously dense. This may lower the sensitivity of mammography. Current study was also evaluated with a Computer Aided Detection (CAD) system. There are benign post operative findings in the left breast. No significant masses, calcifications, or other findings are seen in the breast. There has been no significant interval change. IMPRESSION: BENIGN There is no mammographic evidence of malignancy. A 1 year screening mammogram is recommended. This exam was interpreted at Station ID: [id number]. NOTE: For mammograms, a report in lay terms will be sent to the patient. Approximately 15% of breast malignancies will not be visualized mammographically. In the management of a palpable breast mass, a negative mammogram must not discourage biopsy of a clinically suspicious lesion. Electronically Signed By: Harris Glover M.D., jr/remigio:03/10/2021 11:47:50 copy to: STEPHANIE ALFONSO letter sent: Normal Exam ACR BI-RADS Category 2: Benign Finding(s) 3342F
== END ==
PROVIDERS: PCP Physician Assistant; Referring Provider Physician Assistant; Visit Provider Physician Assistant
DX: Z12.31 Encounter for screening mammogram for malignant neoplasm of breast (principal); Z85.3 Personal history of malignant neoplasm of breast; Z80.3 Family history of malignant neoplasm of breast
CPT/HCPCS: 77063; 77067

== ENCOUNTER → 2021-04-11 10:26 | Outpatient (CLI) | payer MEDICARE, SELFPAY ==
[2021-04-11 10:58] LABS: COVID19 -Nasal RAPID Negative (Negative)
== END ==
PROVIDERS: PCP Physician Assistant; Referring Provider Nurse Practitioner; Visit Provider Nurse Practitioner
DX: Z20.822 Contact with and (suspected) exposure to COVID-19 (principal)
CPT/HCPCS: 87635

== ENCOUNTER → 2021-05-26 10:41 | Outpatient (CLI) | payer OTHER, SELFPAY ==
[2021-05-26 13:05] LABS: Alanine Aminotransferase 16 IU/L (<35); Albumin 4.2 g/dL (3.5-5.0); Albumin Globulin Ratio 1.7 (1.0-2.8); Alkaline Phosphatase 70 U/L (38-126); Aspartate Aminotransferase 23 IU/L (14-36); Bilirubin Total 0.6 mg/dL (0.2-1.3); Blood Urea Nitrogen 18 mg/dL (7-17); Calcium 9.6 mg/dL (8.4-10.2); Carbon Dioxide 27 mmol/L (22-32); Chloride 104 mmol/L (98-107); Cholesterol 197 mg/dL (140-199); Estimated Glomerular Filt Rate > 60.0 mL/min (>60); Globulin 2.5 g/dL (1.7-4.1); Glucose 86 mg/dL (80-110); HDL Cholesterol 75 mg/dL (40-60); HEMOLYSIS < 15 (0-50); LDL Cholesterol Calculated 106 mg/dL (<100); Potassium 4.7 mmol/L (3.4-5.1); Sodium 138 mmol/L (137-145); Total Protein 6.7 g/dL (6.3-8.2); Triglycerides 80 mg/dL (35-150)
[2021-05-26 13:20] LABS: Free T4, Direct Thyroxine 1.34 ng/dL (0.78-2.19)
[2021-05-26 13:34] LABS: Thyroid Stimulating Hormone 2.91 uIU/mL (0.47-4.68)
== END ==
PROVIDERS: PCP Internal Medicine; Referring Provider Internal Medicine; Visit Provider Internal Medicine
DX: I10 Essential (primary) hypertension (principal); E03.9 Hypothyroidism, unspecified; I47.1 Supraventricular tachycardia
CPT/HCPCS: 36415; 80053; 80061; 84439; 84443

== ENCOUNTER → 2021-11-22 14:45 | Outpatient (CLI) | payer MEDICARE, SELFPAY ==
[2021-11-22 15:55] LABS: Appearance Urine UA CLEAR; Bilirubin Urine UA NEGATIVE (NEGATIVE); Color Urine UA YELLOW; Glucose Urine UA NEGATIVE (Negative); Ketones Urine UA NEGATIVE (NEGATIVE); Leukocyte Esterase Urine UA NEGATIVE (NEGATIVE); Nitrite Urine UA NEGATIVE (Negative); Occult Blood Urine UA NEGATIVE (Negative); Protein Urine UA NEGATIVE (Negative); Specific Gravity Urine UA <=1.005 (1.000-1.035); Urobilinogen Urine UA 0.2 E.U./dL (0.2)
[2021-11-22 15:56] LABS: pH Urine UA 5.5 (4.5-8.0)
[2021-11-22 16:01] LABS: Bacteria Urine None Seen; Culture Indicated Urine Cult Not Indicated; RBC Urine None Seen (0-5/HPF); Squamous Epithelial Cell Urine 0-1 /HPF (0-5/HPF); WBC Urine 0-1/HPF (0-5/HPF)
== END ==
PROVIDERS: PCP Internal Medicine; Referring Provider Internal Medicine; Visit Provider Internal Medicine
DX: R46.89 Other symptoms and signs involving appearance and behavior (principal)
CPT/HCPCS: 81001

== ENCOUNTER → 2022-03-14 14:01 | Outpatient (CLI) | payer MEDICARE, SELFPAY ==
--- NOTE | 2022-03-14 | DI.MG.S_ITS ---
UNILATERAL LEFT DIGITAL SCREENING MAMMOGRAM 3D/2D WITH CAD POST LUMPECTOMY POST MASTECTOMY: 03/14/2022 CLINICAL: Routine screening. Bilateral Breast cancer Family history of breast cancer. Comparison is made to exams dated: 03/10/2021 mammogram, 01/09/2020 mammogram - [facility], 12/17/2018 mammogram, and 12/11/2017 mammogram - outside location. The left breast is heterogeneously dense, which may obscure small masses (category c / 51-75% glandular tissue). Current study was also evaluated with a Computer Aided Detection (CAD) system. There are benign post operative findings in the left breast. No significant masses, calcifications, or other findings are seen in the breast. There has been no significant interval change. IMPRESSION: BENIGN There is no mammographic evidence of malignancy. A 1 year screening mammogram is recommended. This exam was interpreted at Station ID: [id number]. NOTE: For mammograms, a report in lay terms will be sent to the patient. Approximately 15% of breast malignancies will not be visualized mammographically. In the management of a palpable breast mass, a negative mammogram must not discourage biopsy of a clinically suspicious lesion. Electronically Signed By: Alek chapa/[email or web address]:03/14/2022 16:55:28 copy to: STEPHANIE ALFONSO letter sent: Normal Exam ACR BI-RADS Category 2: Benign Finding(s) 3342F
== END ==
PROVIDERS: PCP Internal Medicine; Referring Provider Internal Medicine; Visit Provider Internal Medicine
DX: Z12.31 Encounter for screening mammogram for malignant neoplasm of breast (principal); Z80.3 Family history of malignant neoplasm of breast; Z85.3 Personal history of malignant neoplasm of breast
CPT/HCPCS: 77063; 77067

== ENCOUNTER → 2022-04-07 16:14 | Outpatient (CLI) | payer MEDICARE, SELFPAY ==
[2022-04-07 18:24] LABS: Alanine Aminotransferase 23 IU/L (<35); Albumin 4.5 g/dL (3.5-5.0); Albumin Globulin Ratio 1.4 (1.0-2.8); Alkaline Phosphatase 69 U/L (38-126); Aspartate Aminotransferase 23 IU/L (14-36); BUN Creatinine Ratio 32.8 (6-22); Bilirubin Total 0.3 mg/dL (0.2-1.3); Blood Urea Nitrogen 21 mg/dL (7-17); Calcium 9.7 mg/dL (8.4-10.2); Carbon Dioxide 30 mmol/L (22-32); Chloride 101 mmol/L (98-107); Estimated Glomerular Filt Rate > 60 mL/min (>60); Globulin 3.2 g/dL (1.7-4.1); Glucose 92 mg/dL (80-110); HEMOLYSIS < 15 (0-50); Potassium 4.2 mmol/L (3.4-5.1); Sodium 141 mmol/L (137-145); Total Protein 7.7 g/dL (6.3-8.2)
[2022-04-07 18:48] LABS: Free T4, Direct Thyroxine 1.21 ng/dL (0.78-2.19)
[2022-04-07 19:01] LABS: Thyroid Stimulating Hormone 1.06 uIU/mL (0.47-4.68)
== END ==
PROVIDERS: PCP Internal Medicine; Referring Provider Internal Medicine; Visit Provider Internal Medicine
DX: E03.9 Hypothyroidism, unspecified (principal); I10 Essential (primary) hypertension
CPT/HCPCS: 36415; 80053; 84439; 84443

== ENCOUNTER 2022-10-11 10:36 | Emergency (ER) | payer MEDICARE, SELFPAY ==
[2022-10-11] VITALS (20 sets, daily range): BP systolic 118–155; BP diastolic 64–90; PULSE 60–81; RESP 13–31; TEMP 36.7; O2SAT 93–99; BMI 30.3
--- NOTE | 2022-10-11 10:50 | DI.CT.S_ITS ---
PROCEDURE: CT ANGIO HEAD AND NECK INDICATIONS: double vision / ataxia TECHNIQUE: After the administration of intravenous contrast, 1 mm thick sections acquired from the aortic arch through the [place] of [place]. Post-contrast 4.5 mm thick sections then re-acquired from the foramen magnum to the vertex. 3-dimensional vuiskyh-zlbxefdmw-axzkafrxha (MIP) and/or volume rendering reformats were acquired of the central intracranial vasculature and neck separately. For radiation dose reduction, the following was used: automated exposure control, adjustment of mA and/or kV according to patient size. COMPARISON: None. FINDINGS: Image quality: Excellent. BRAIN: The ventricular system and cortical sulci demonstrate atrophy, consistent for the patient's stated age. There are areas of hypodensity within the periventricular and subcortical white matter. There is no acute intra-or extra axial fluid collection. No acute hemorrhage, mass lesion or midline shift. Brainstem is unremarkable. Globes are symmetrical. Sinuses are aerated. Osseous structures are intact. HEAD CT ANGIOGRAPHY: Anterior circulation: Intracranial internal carotid arteries are normal in size and flow. The flow within the paired anterior cerebral arteries is normal and symmetric. The flow within the middle cerebral arteries is normal and symmetric. The anterior communicating artery is seen. No aneurysms are seen. Posterior circulation: There is a left vertebral artery dominance. Visualized portions of the vertebral arteries demonstrate normal caliber, and join to form a normal appearing basilar artery. Flow within the posterior cerebral arteries is normal and symmetric. No aneurysms are seen. NECK CT ANGIOGRAPHY: Carotid system: The great vessels demonstrate a conventional anatomy as they arise from the aortic arch. The origins of the common carotid arteries appear patent. The common carotid arteries demonstrate normal caliber and courses. The bifurcation regions are both widely patent. The internal carotid arteries demonstrate normal calibers and courses. Posterior circulation: The origins of the vertebral arteries both appear widely patent. The more superior extracranial portions of both vertebral arteries also demonstrate normal courses and calibers. They join to form a normal appearing basilar artery. Soft tissues: Visualized neck soft tissues demonstrate no suspicious abnormalities. Bones: No suspicious bony lesions. Visualized cervical spine appears normally aligned. IMPRESSION: 1. No acute intracranial process. 2. Moderate atrophy and chronic microvascular ischemic changes. 3. No areas of hemodynamically significant stenosis, vascular occlusion or aneurysmal dilation within the anterior or posterior circulation. 4. No areas of hemodynamically significant stenosis, vascular occlusion or aneurysmal dilation within the neck vasculature. Any quantitative measurements of stenosis were performed using NASCET criteria. Dictated by: Paola Damian M.D. on 10/11/2022 at 11:51 Approved by: Paola Damian M.D. on 10/11/2022 at 11:55
--- NOTE | 2022-10-11 10:52 | ED_ITS ---
HPI - Neuro Symptoms/Deficit General Chief Complaint: Neuro Symptoms/Deficit Stated Complaint: balance is off/double vision Time Seen by Provider: 10/11/22 10:45 Source: patient Mode of arrival: Ambulatory History of Present Illness HPI Narrative: Patient madison 82-year-old female history of anxiety, hypertension, hypothyroid, SVT presenting today with difficulty ambulating. She reports that yesterday she thinks she was doing well she has no complaints. She also reports that she was having some double vision which has now resolved. She denies any headache chest pain numbness tingling weakness or difficulty speaking. But she definitely has noticed balance issues this morning. She denies any dizziness or room spinning vertigo-like symptoms. No nausea or vomiting. On Anticoagulants: Yes (ASA 81 mg daily) Related Data Home Medications Medication Instructions Recorded Confirmed ibuprofen 200 mg tablet (Advil) ##0 06/08/17 10/07/22 Caltrate 600MG + D3 20MCG 1 tab PO DAILY 10/07/22 Vitamin B12 1 tab PO DAILY 10/07/22 aspirin 81 mg tablet,delayed 81 mg PO DAILY 10/07/22 10/07/22 release (Adult Low Dose Aspirin) cholecalciferol (vitamin D3) 50 50 mcg PO DAILY 10/07/22 10/07/22 mcg (2,000 unit) capsule mecobalamin (vitamin B12) 1,000 1,000 mcg PO DAILY 10/07/22 10/07/22 mcg disintegrating tablet,sublingual multivitamin 1 tab PO DAILY 10/07/22 10/07/22 Previous Rx's Medication Instructions Recorded levothyroxine 50 mcg tablet 50 mcg PO DAILY #90 tabs 04/25/22 metoprolol tartrate 25 mg tablet 25 mg PO BID #180 tabs 06/06/22 lorazepam 0.5 mg tablet 0.5 mg PO QD-BID PRN anxiety #20 10/03/22 tabs Allergies Allergy/AdvReac Type Severity Reaction Status Date / Time lisinopril AdvReac Intermediate cough Verified 10/11/22 10:49 Review of Systems Review of Systems ROS Unobtainable: All systems reviewed & are unremarkable except as noted in HPI and below Hematologic/Lymphatic On Anticoagulants: Yes (ASA 81 mg daily) Patient History Medical History Breast cancer Hearing loss Hypertension Hypothyroidism Monoallelic mutation of CADY gene PSVT (paroxysmal supraventricular tachycardia) Surgical History H/O cardiac radiofrequency ablation (~04/2016) H/O lumpectomy H/O mastectomy History of cataract removal with insertion of prosthetic lens (~2018) Hx of cholecystectomy Social History marital status: Smoking Status: Never smoker alcohol intake: current substance use type: does not use Smoking Status: Never smoker alcohol intake frequency: a few times a week Substance Use Type: does not use Exam Initial Vital Signs Initial Vital Signs: Vital Signs Pulse Rate 77 10/11/22 10:45 Pulse Oximetry 98 10/11/22 10:45 GENERAL: Alert pleasant well-appearing 82-year-old and in no acute distress. HEENT: Head atraumatic,EOMI, pupils reactive, face symmetric, moist mucous membranes CARDIOVASCULAR: Regular rate and rhythm without murmurs, rubs or gallops. RESPIRATORY: Breath sounds equal bilaterally, no wheezes rales or rhonchi. ABDOMEN: Soft, nontender. Normoactive bowel sounds all 4 quadrants. No guarding or rebound. EXTREMITIES: Normal range of motion, no clubbing or edema. Neurovascularly intact NEUROLOGICAL: Alert and oriented x4.Normal gait and speech. Cranial nerves II through XII grossly intact. Good gtvwwg-et-uuhx, good ogry-[id number], strength equal bilaterally, no dysarthria or aphasia, sensation in tact to soft touch bilaterally, no visual changes, no facial droop SKIN: Warm, dry, no laceration, no petechiae, no rashes or lesions. Scores NIH Stroke Scale Level of Conciousness: Alert, keenly responsive Ask month/age: Answers both questions correctly. Open/close eyes, close hand: Performs both tasks correctly Best gaze horizontal: Normal Visual flores: No visual loss Facial palsy: Normal symetrical movement Left arm drift: No drift for full 10 sec Right arm drift: No drift for full 10 sec Left leg drift: No drift for full 5 sec Right leg drift: No drift for full 5 sec Limb ataxia: Absent Sensory on face/arms/legs: Normal, no sensory loss Best language: No aphasia, normal Dysarthria: Normal Extinction or inattention: No abnormality Total NIH Stroke scale score: 0 Course Orders Ordered: ED Orders 10/11/22 10:49 EKG-12 Lead Stat 10/11/22 10:50 CT angio head and neck Stat 10/11/22 10:55 Complete Blood Count AUTO DIFF Stat Comprehensive Metabolic Panel Stat Ethanol (ETOH) Stat PTT Partial Thromboplastin Dontae Stat Prothrombin Time INR Stat Troponin & CK Cardiac Panel Stat 10/11/22 11:16 CT head/brain wo con Stat 10/11/22 12:11 MR head/brain wo con Stat 10/11/22 12:27 Urinalysis and Microscopic Stat Urine Drug Screen, Rapid Stat Vital Signs Vital signs: Vital Signs - 8 hr 10/11/22 11:30 10/11/22 12:00 10/11/22 12:37 Pulse Rate 67 66 61 Respiratory Rate 30 H 24 17 Blood Pressure Pulse Oximetry 97 98 98 10/11/22 12:39 10/11/22 12:39 10/11/22 13:00 Pulse Rate 60 63 Respiratory Rate 22 19 Blood Pressure 134/69 Pulse Oximetry 99 98 10/11/22 13:01 10/11/22 13:01 10/11/22 13:30 Pulse Rate 63 67 Respiratory Rate 23 23 Blood Pressure 153/69 H Pulse Oximetry 99 95 10/11/22 13:31 10/11/22 13:31 10/11/22 14:00 Pulse Rate 63 Respiratory Rate 31 H Blood Pressure 118/66 130/66 Pulse Oximetry 93 10/11/22 14:00 10/11/22 14:34 10/11/22 15:13 Pulse Rate 64 80 73 Respiratory Rate 19 28 H Blood Pressure Pulse Oximetry 97 97 97 10/11/22 15:24 10/11/22 15:24 10/11/22 15:30 Pulse Rate 81 Respiratory Rate 13 Blood Pressure 132/81 127/78 Pulse Oximetry 98 10/11/22 15:30 10/11/22 16:00 10/11/22 16:24 Pulse Rate 67 72 68 Respiratory Rate 22 22 Blood Pressure 155/80 H Pulse Oximetry 99 97 MDM - Neuro Symptoms/Deficit Lab Data 10/11/22 10:55 10/11/22 10:55 Labs: Lab Results 10/11/22 10/11/22 10/11/22 Range/Units 10:55 10:55 10:55 WBC 5.1 (4.5-11.0) X10^3/uL RBC 4.32 (4.0-5.2) X10^6/uL Hgb 14.2 (12.0-16.0) g/dL Hct 41.7 (36-46) % MCV 96.4 (80-100) fL MCH 33.0 (26-34) PG MCHC 34.2 (30-36) % RDW 13.3 (11.6-14.8) % Plt Count 185 (150-400) X10^3/uL Neut % (Auto) 59.8 (50-75) % Lymph % (Auto) 22.2 L (25-40) % [place] % (Auto) 10.5 (3-14) % Eos % (Auto) 6.6 H (2-4) % Baso % (Auto) 0.9 (0-2) % Neut # (Auto) 3100 (8285-2139) /uL Lymph # (Auto) 1100 (1498-5265) /uL [place] # (Auto) 500 (0-900) /uL Eos # (Auto) 300 (0-450) /uL Baso # (Auto) 0 (0-100) /uL PT 11.3 (10.1-12.7) SECONDS INR 1.0 (0.9-1.3) APTT 31 (26-36) SECONDS Sodium 140 (137-145) mmol/L Potassium 4.1 (3.4-5.1) mmol/L Chloride 106 (98-107) mmol/L Carbon Dioxide 23 (22-32) mmol/L BUN 17 (7-17) mg/dL Creatinine 0.64 (0.52-1.04) mg/dL Estimated GFR > 60 (>60) mL/min BUN/Creatinine Ratio 26.6 H (6-22) Glucose 115 H (80-110) mg/dL Calcium 9.4 (8.4-10.2) mg/dL Total Bilirubin 0.3 (0.2-1.3) mg/dL AST 21 (14-36) IU/L ALT 21 (<35) IU/L Alkaline Phosphatase 63 (38-126) U/L Total Creatine Kinase 44 (30-135) U/L Troponin I < 0.012 (0.01-0.034) ng/mL Total Protein 6.6 (6.3-8.2) g/dL Albumin 4.1 (3.5-5.0) g/dL Globulin 2.5 (1.7-4.1) g/dL Albumin/Globulin Ratio 1.6 (1.0-2.8) Urine Color Urine Appearance Urine pH (4.5-8.0) Ur Specific [place] (1.000-1.035) Urine Protein (Negative) Urine Glucose (UA) (Negative) g/dL Urine Ketones (NEGATIVE) Urine Occult Blood (Negative) Urine Nitrate (Negative) Urine Bilirubin (NEGATIVE) Urine Urobilinogen (0.2) E.U./dL Ur Leukocyte Esterase (NEGATIVE) Urine RBC (0-5/HPF) Urine WBC (0-5/HPF) Ur Squamous Epith Cells (0-5/HPF) Urine Bacteria (None) U Opiates 300ng/mL cut (Negative) Ur Oxycodone Screen (Negative) Urine Methadone Screen (Negative) Ur Barbiturates Screen (Negative) U Tricyclic Antidepress (Negative) Ur Phencyclidine Scrn (Negative) Ur Amphetamines Screen (Negative) U Methamphetamines Scrn (Negative) Ur MDMA Scrn (Ecstasy) (Negative) U Benzodiazepines Scrn (Negative) Urine Cocaine Screen (Negative) U Marijuana (THC) Screen (Negative) Ethyl Alcohol < 10 ( - 10) mg/dL 10/11/22 10/11/22 Range/Units 12:27 12:27 WBC (4.5-11.0) X10^3/uL RBC (4.0-5.2) X10^6/uL Hgb (12.0-16.0) g/dL Hct (36-46) % MCV (80-100) fL MCH (26-34) PG MCHC (30-36) % RDW (11.6-14.8) % Plt Count (150-400) X10^3/uL Neut % (Auto) (50-75) % Lymph % (Auto) (25-40) % [place] % (Auto) (3-14) % Eos % (Auto) (2-4) % Baso % (Auto) (0-2) % Neut # (Auto) (3642-3490) /uL Lymph # (Auto) (4433-6764) /uL [place] # (Auto) (0-900) /uL Eos # (Auto) (0-450) /uL Baso # (Auto) (0-100) /uL PT (10.1-12.7) SECONDS INR (0.9-1.3) APTT (26-36) SECONDS Sodium (137-145) mmol/L Potassium (3.4-5.1) mmol/L Chloride (98-107) mmol/L Carbon Dioxide (22-32) mmol/L BUN (7-17) mg/dL Creatinine (0.52-1.04) mg/dL Estimated GFR (>60) mL/min BUN/Creatinine Ratio (6-22) Glucose (80-110) mg/dL Calcium (8.4-10.2) mg/dL Total Bilirubin (0.2-1.3) mg/dL AST (14-36) IU/L ALT (<35) IU/L Alkaline Phosphatase (38-126) U/L Total Creatine Kinase (30-135) U/L Troponin I (0.01-0.034) ng/mL Total Protein (6.3-8.2) g/dL Albumin (3.5-5.0) g/dL Globulin (1.7-4.1) g/dL Albumin/Globulin Ratio (1.0-2.8) Urine Color Yellow Urine Appearance Clear Urine pH 6.0 (4.5-8.0) Ur Specific [place] <=1.005 (1.000-1.035) Urine Protein Negative (Negative) Urine Glucose (UA) Negative (Negative) g/dL Urine Ketones Negative (NEGATIVE) Urine Occult Blood Negative (Negative) Urine Nitrate Negative (Negative) Urine Bilirubin Negative (NEGATIVE) Urine Urobilinogen 0.2 (0.2) E.U./dL Ur Leukocyte Esterase Negative (NEGATIVE) Urine RBC None seen (0-5/HPF) Urine WBC None seen (0-5/HPF) Ur Squamous Epith Cells 0-1 /hpf (0-5/HPF) Urine Bacteria None seen (None) U Opiates 300ng/mL cut Negative (Negative) Ur Oxycodone Screen Negative (Negative) Urine Methadone Screen Negative (Negative) Ur Barbiturates Screen Negative (Negative) U Tricyclic Antidepress Negative (Negative) Ur Phencyclidine Scrn Negative (Negative) Ur Amphetamines Screen Negative (Negative) U Methamphetamines Scrn Negative (Negative) Ur MDMA Scrn (Ecstasy) Negative (Negative) U Benzodiazepines Scrn Negative (Negative) Urine Cocaine Screen Negative (Negative) U Marijuana (THC) Screen Negative (Negative) Ethyl Alcohol ( - 10) mg/dL Imaging Data CT scan - head: Radiologist's Impression: PROCEDURE:? CT HEAD/BRAIN WO CON ? INDICATIONS:? double vision and ataxia ? TECHNIQUE:? Noncontrast 4.5 mm thick angled axial sections acquired from the foramen magnum to the vertex, with coronal and sagittal reformats.? For radiation dose reduction, the following was used:? automated exposure control, adjustment of mA and/or kV according to patient size.? ? COMPARISON:? [facility], CT, CT ANGIO HEAD AND NECK, 10/11/2022, 11:17. ? FINDINGS:? Image quality:? Excellent.? ? CSF spaces:? Basal cisterns are patent.? No extra-axial fluid collections.? The ventricles are symmetric in size and shape.? ? Brain:? No intracranial bleeds or masses.? There is cerebral volume loss for age, with resultant ventricular and sulcal prominence.? There are periventricular and deep white matter chronic small vessel ischemic changes.? There is intracranial internal carotid artery atherosclerosis.? ? Skull and face:? Calvarium and visualized facial bones appear intact, without suspicious lesions.? ? Sinuses:? Visualized sinuses and mastoids are clear.? ? IMPRESSION:? ? 1. No acute intracranial process. ? 2. Moderate atrophy and chronic microvascular ischemic changes. ? ? ? Dictated by: Paola Damian M.D. on 10/11/2022 at 11:28 CTA - brain/neck: Radiologist's Impression: PROCEDURE:? CT ANGIO HEAD AND NECK ? INDICATIONS:? double vision / ataxia ? TECHNIQUE:? ?After the administration of intravenous contrast, 1 mm thick sections acquired from the aortic arch through the [place] of [place].? Post-contrast 4.5 mm thick sections then re-acquired from the foramen magnum to the vertex.? 3-dimensional clflehy-tgabrwkxz-puzqtcktrt (MIP) and/or volume rendering reformats were acquired of the central intracranial vasculature and neck separately. For radiation dose reduction, the following was used:? automated exposure control, adjustment of mA and/or kV according to patient size.? ? COMPARISON:? None. ? FINDINGS:? Image quality:? Excellent.? ? BRAIN:? The ventricular system and cortical sulci demonstrate atrophy, consistent for the patient's stated age. There are areas of hypodensity within the periventricular and subcortical white matter.? There is no acute intra-or extra axial fluid collection. No acute hemorrhage, mass lesion or midline shift. Brainstem is unremarkable. Globes are symmetrical. Sinuses are aerated. Osseous structures are intact. ? HEAD CT ANGIOGRAPHY:? Anterior circulation:? Intracranial internal carotid arteries are normal in size and flow.? The flow within the paired anterior cerebral arteries is normal and symmetric.? The flow within the middle cerebral arteries is normal and symmetric.? The anterior communicating artery is seen.? No aneurysms are seen.? ? Posterior circulation:? There is a left vertebral artery dominance.? Visualized portions of the vertebral arteries demonstrate normal caliber, and join to form a normal appearing basilar artery.? Flow within the posterior cerebral arteries is normal and symm etric.? No aneurysms are seen.? ? NECK CT ANGIOGRAPHY:? Carotid system:? The great vessels demonstrate a conventional anatomy as they arise from the aortic arch.? The origins of the common carotid arteries appear patent.? The common carotid arteries demonstrate normal caliber and courses.? The bifurcation regions are both widely patent.? The internal carotid arteries demonstrate normal calibers and courses.? ? Posterior circulation:? The origins of the vertebral arteries both appear widely patent.? The more superior extracranial portions of both vertebral arteries also demonstrate normal courses and calibers.? They join to form a normal appearing basilar artery.? ? Soft tissues:? Visualized neck soft tissues demonstrate no suspicious abnormalities.? ? Bones:? No suspicious bony lesions.? Visualized cervical spine appears normally aligned.? IMPRESSION:? ? 1. No acute intracranial process. ? 2. Moderate atrophy and chronic microvascular ischemic changes. ? 3. No areas of hemodynamically significant stenosis, vascular occlusion or aneurysmal dilation within the anterior or posterior circulation. ? 4. No areas of hemodynamically significant stenosis, vascular occlusion or aneurysmal dilation within the neck vasculature. ? Any quantitative measurements of stenosis were performed using NASCET criteria.? ? ? Dictated by: Paola Damian M.D. on 10/11/2022 at 11:51 ? ? MR Brain: Radiologist's Impression: PROCEDURE:? MR HEAD/BRAIN WO CON ? INDICATIONS:? difficulty walking ? TECHNIQUE:? Non-contrast axial T1 spin echo, axial T2 fast spin echo, sagittal and axial FLAIR, coronal T2 fast spin echo, axial gradient echo, axial diffusion and ADC through the brain.? ? COMPARISON:? [facility], CT, CT HEAD/BRAIN WO CON, 10/11/2022, 11:17.? [facility], CT, CT ANGIO HEAD AND NECK, 10/11/2022, 11:17. ? FINDINGS:? Image quality:? Excellent.? ? CSF spaces:? Ventricles appear symmetric in size and shape.? Basal cisterns are patent.? No extra-axial fluid collections.? ? Brain:? No intracranial bleeds or mass effects.? There is cerebral volume loss for age.? There are periventricular and deep white matter chronic small vessel ischemic changes.? Fartun demonstrates small areas of increased signal suggestive of chronic microvascular ischemia.? Diffusion-weighted images show no acute ischemic insults.? No chronic ischemic insults.? Normal intravascular flow voids are present.? ? Skull and face:? Calvarial bone marrow is normal in signal.? Orbits are normal.? ? Sinuses:? Sinuses and mastoids are clear.? ? IMPRESSION:? ? 1. No acute intracranial process.? No acute ischemia. ? 2. Moderate atrophy and chronic microvascular ischemic changes. ? ? ? Dictated by: Paola Damian M.D. on 10/11/2022 at 15:45 ? ECG Data Interpretation: EKG 1. Sinus rhythm rate 71 KS interval 216 QRS 94 QTC 422 changes MDM Narrative Medical decision making narrative: Patient 82-year-old female presents today with some difficulty ambulating. I have personally watch her walk to the bathroom I have not seen any stumbles or ataxia. Nursing staff reported a little bit. Initial head CT CT angio are negative. Blood work is reassuring certainly concern for underlying TIA or CVA. MRI is done and is negative. Patient has been up and ambulatory to the restroom multiple times she is not stumbling she is not falling having any ataxia. She is NIH stroke scale of 0. At this time recommend outpatient follow-up and workup but I no need for admission. Recommend daily aspirin which she is already taking. Discharge Plan Departure Patient Disposition: Home Clinical Impression: Weakness Instructions: DI for Transient Ischemic Attack Activity Restrictions/Additional Instructions: *You have been diagnosed with weakness *What to do: At this time you will need to follow up with Dr. Bang for further testing. Concern that you may or may not have had a TIA. *Continue to take medications as directed Continue aspirin daily *Follow up with your primary care provider in 2-3 days or call [phone] *Return to ER if you should have increasing weakness facial droop difficulty speaking confusion numbness tingling or weakness or any new, worsening or concerning symptoms Prescriptions: No Action ibuprofen [Advil] 200 MG tablet Qty: 0 levothyroxine 50 mcg tablet 50 mcg PO DAILY Qty: 90 3RF metoprolol tartrate 25 mg tablet 25 mg PO BID Qty: 180 3RF lorazepam 0.5 mg tablet 0.5 mg PO QD-BID PRN (Reason: anxiety) Qty: 20 0RF mecobalamin (vitamin B12) 1,000 mcg tablet,disintegrating 1,000 mcg PO DAILY aspirin [Adult Low Dose Aspirin] 81 mg tablet,delayed release (DR/EC) 81 mg PO DAILY multivitamin Tablet 1 tab PO DAILY Caltrate 600MG + D3 20MCG 1 tab PO DAILY Vitamin B12 100 mcg 1 tab PO DAILY cholecalciferol (vitamin D3) 50 mcg (2,000 unit) capsule 50 mcg PO DAILY Referrals: Cal Bang MD [Primary Care Provider] - Stand Alone Forms: Patient Portal/API
[2022-10-11 11:07] LABS: Add Manual Diff / Slide Review NO; Basophils Absolute Auto 0 /uL (0-100); Basophils Percent Auto 0.9 % (0-2); Eosinophils Absolute Auto 300 /uL (0-450); Eosinophils Percent Auto 6.6 % (2-4); Hematocrit 41.7 % (36-46); Hemoglobin 14.2 g/dL (12.0-16.0); Lymphocytes Absolute Auto 1100 /uL (1100-4500); Lymphocytes Percent Auto 22.2 % (25-40); Mean Corpuscular HGB Conc 34.2 % (30-36); Mean Corpuscular Volume 96.4 fL (80-100); Monocytes Absolute Auto 500 /uL (0-900); Monocytes Percent Auto 10.5 % (3-14); Neutrophils Absolute Auto 3100 /uL (1500-7000); Neutrophils Percent Auto 59.8 % (50-75); Platelet Count 185 X10^3/uL (150-400); Red Blood Cell Count 4.32 X10^6/uL (4.0-5.2); Red Cell Distribution Width 13.3 % (11.6-14.8); White Blood Cell Count 5.1 X10^3/uL (4.5-11.0)
[2022-10-11 11:14] LABS: Prothrombin Time 11.3 SECONDS (10.1-12.7)
--- NOTE | 2022-10-11 11:16 | DI.CT.S_ITS ---
PROCEDURE: CT HEAD/BRAIN WO CON INDICATIONS: double vision and ataxia TECHNIQUE: Noncontrast 4.5 mm thick angled axial sections acquired from the foramen magnum to the vertex, with coronal and sagittal reformats. For radiation dose reduction, the following was used: automated exposure control, adjustment of mA and/or kV according to patient size. COMPARISON: [facility], CT, CT ANGIO HEAD AND NECK, 10/11/2022, 11:17. FINDINGS: Image quality: Excellent. CSF spaces: Basal cisterns are patent. No extra-axial fluid collections. The ventricles are symmetric in size and shape. Brain: No intracranial bleeds or masses. There is cerebral volume loss for age, with resultant ventricular and sulcal prominence. There are periventricular and deep white matter chronic small vessel ischemic changes. There is intracranial internal carotid artery atherosclerosis. Skull and face: Calvarium and visualized facial bones appear intact, without suspicious lesions. Sinuses: Visualized sinuses and mastoids are clear. IMPRESSION: 1. No acute intracranial process. 2. Moderate atrophy and chronic microvascular ischemic changes. Dictated by: Paola Damian M.D. on 10/11/2022 at 11:28 Approved by: Paola Damian M.D. on 10/11/2022 at 11:29
[2022-10-11 11:17] LABS: PTT Partial Thromboplastin Tim 31 SECONDS (26-36)
[2022-10-11 11:18] LABS: Alanine Aminotransferase 21 IU/L (<35); Albumin 4.1 g/dL (3.5-5.0); Albumin Globulin Ratio 1.6 (1.0-2.8); Alkaline Phosphatase 63 U/L (38-126); Aspartate Aminotransferase 21 IU/L (14-36); BUN Creatinine Ratio 26.6 (6-22); Bilirubin Total 0.3 mg/dL (0.2-1.3); Blood Urea Nitrogen 17 mg/dL (7-17); Calcium 9.4 mg/dL (8.4-10.2); Carbon Dioxide 23 mmol/L (22-32); Chloride 106 mmol/L (98-107); Creatine Kinase 44 U/L (30-135); Estimated Glomerular Filt Rate > 60 mL/min (>60); Ethanol (ETOH) < 10 mg/dL; Globulin 2.5 g/dL (1.7-4.1); Glucose 115 mg/dL (80-110); HEMOLYSIS < 15 (0-50); Potassium 4.1 mmol/L (3.4-5.1); Sodium 140 mmol/L (137-145); Total Protein 6.6 g/dL (6.3-8.2)
[2022-10-11 11:29] LABS: Troponin I < 0.012 ng/mL (0.01-0.034)
--- NOTE | 2022-10-11 11:50 | PC.NURSE ---
pt states she started having symptoms yesterday, states he was walking funny. she was struggling to find the right words this morning while doing the daily word puzzle in the paper. family member at bedside states she was also talking funny. same family member states she seems to be speaking normally currently.
--- NOTE | 2022-10-11 12:11 | DI.MRI.S_ITS ---
PROCEDURE: MR HEAD/BRAIN WO CON INDICATIONS: difficulty walking TECHNIQUE: Non-contrast axial T1 spin echo, axial T2 fast spin echo, sagittal and axial FLAIR, coronal T2 fast spin echo, axial gradient echo, axial diffusion and ADC through the brain. COMPARISON: [facility], CT, CT HEAD/BRAIN WO CON, 10/11/2022, 11:17. [facility], CT, CT ANGIO HEAD AND NECK, 10/11/2022, 11:17. FINDINGS: Image quality: Excellent. CSF spaces: Ventricles appear symmetric in size and shape. Basal cisterns are patent. No extra-axial fluid collections. Brain: No intracranial bleeds or mass effects. There is cerebral volume loss for age. There are periventricular and deep white matter chronic small vessel ischemic changes. Fartun demonstrates small areas of increased signal suggestive of chronic microvascular ischemia. Diffusion-weighted images show no acute ischemic insults. No chronic ischemic insults. Normal intravascular flow voids are present. Skull and face: Calvarial bone marrow is normal in signal. Orbits are normal. Sinuses: Sinuses and mastoids are clear. IMPRESSION: 1. No acute intracranial process. No acute ischemia. 2. Moderate atrophy and chronic microvascular ischemic changes. Dictated by: Paola Damian M.D. on 10/11/2022 at 15:45 Approved by: Paola Damian M.D. on 10/11/2022 at 15:46
--- NOTE | 2022-10-11 12:32 | PC.NURSE ---
pt stand by assist when ambulating to bathroom. pt listed to the left twice on way to the restroom. notified provider of this.
[2022-10-11 12:49] LABS: Appearance Urine UA CLEAR; Bilirubin Urine UA NEGATIVE (NEGATIVE); Color Urine UA YELLOW; Glucose Urine UA NEGATIVE (Negative); Ketones Urine UA NEGATIVE (NEGATIVE); Leukocyte Esterase Urine UA NEGATIVE (NEGATIVE); Nitrite Urine UA NEGATIVE (Negative); Occult Blood Urine UA NEGATIVE (Negative); Protein Urine UA NEGATIVE (Negative); Specific Gravity Urine UA <=1.005 (1.000-1.035); Urobilinogen Urine UA 0.2 E.U./dL (0.2)
[2022-10-11 12:59] LABS: UR Morphine/Opiate cutoff 300 Negative (Negative); Ur Creatinine Normal (Normal); Ur Specific Gravity Normal (Normal); Urine Amphetamines Negative (Negative); Urine Barbiturates Negative (Negative); Urine Benzodiazepines Negative (Negative); Urine Cocaine Negative (Negative); Urine MDMA Negative (Negative); Urine Methadone Negative (Negative); Urine Methamphetamines Negative (Negative); Urine Oxycodone Negative (Negative); Urine Phencyclidine Negative (Negative); Urine Tetrahydrocannabinol Negative (Negative); Urine Tricyclic Antidepressant Negative (Negative); Urine pH Normal (Normal)
[2022-10-11 13:08] LABS: Bacteria Urine None Seen; RBC Urine None Seen (0-5/HPF); Squamous Epithelial Cell Urine 0-1 /HPF (0-5/HPF); WBC Urine None Seen (0-5/HPF)
== END 2022-10-11 16:28 | disposition home or self-care (01) ==
PROVIDERS: Emergency Provider Emergency Medicine; PCP Internal Medicine
DX: R53.1 Weakness (principal); H53.2 Diplopia; R26.2 Difficulty in walking, not elsewhere classified; R07.9 Chest pain, unspecified; Z79.82 Long term (current) use of aspirin
CPT/HCPCS: 36415; 70450; 70496; 70498; 70551; 80053; 80305; 80320; 81001; 82550; 84484; 85025; 85610; 85730; 93005; 99284

== ENCOUNTER → 2022-10-20 09:15 | Outpatient (CLI) | payer MEDICARE, SELFPAY | PROVIDERS: Family Provider Internal Medicine; PCP Internal Medicine; Referring Provider Internal Medicine; Visit Provider Internal Medicine | DX: G62.9 Polyneuropathy, unspecified (principal) | CPT/HCPCS: 95886; 95910 ==

== ENCOUNTER → 2023-02-17 10:10 | Outpatient (CLI) | payer MEDICARE, SELFPAY ==
[2023-02-17 10:57] LABS: Influenza A - CEPHEID Flu A NEGATIVE (NEGATIVE); Influenza B - CEPHEID Flu B NEGATIVE (NEGATIVE); Respiratory Syncytial Virus Negative (Negative)
[2023-02-17 10:58] LABS: COVID-19 CEPHEID 4-PLEX PCR Negative (Negative)
== END ==
PROVIDERS: Family Provider Internal Medicine; PCP Internal Medicine; Visit Provider Nurse Practitioner Family
DX: R05.1 Acute cough (principal)
CPT/HCPCS: 0241U

== ENCOUNTER → 2023-03-17 14:22 | Outpatient (CLI) | payer MEDICARE, SELFPAY ==
--- NOTE | 2023-03-17 | DI.MG.S_ITS ---
UNILATERAL LEFT DIGITAL SCREENING MAMMOGRAM 3D/2D WITH CAD: 03/17/2023 CLINICAL: Routine screening. Personal history of right breast cancer. Family history of breast cancer. Comparison is made to exams dated: 03/14/2022 mammogram, 03/10/2021 mammogram, and 01/09/2020 mammogram - [facility]. The left breast is heterogeneously dense, which may obscure small masses (category c / 51-75% glandular tissue). Current study was also evaluated with a Computer Aided Detection (CAD) system. There are benign calcifications in the left breast. There also are benign post operative findings in the left breast. No significant masses, calcifications, or other findings are seen in the breast. There has been no significant interval change. IMPRESSION: BENIGN There is no mammographic evidence of malignancy. A 1 year screening mammogram is recommended. This exam was interpreted at Station ID: [id number]. NOTE: For mammograms, a report in lay terms will be sent to the patient. Approximately 15% of breast malignancies will not be visualized mammographically. In the management of a palpable breast mass, a negative mammogram must not discourage biopsy of a clinically suspicious lesion. Electronically Signed By: Maco Ma M.D. acr/penrad:03/17/2023 14:45:14 copy to: STEPHANIE ALFONSO letter sent: Normal Exam ACR BI-RADS Category 2: Benign Finding(s) 3342F
== END ==
PROVIDERS: Family Provider Internal Medicine; PCP Internal Medicine; Referring Provider Internal Medicine; Visit Provider Internal Medicine
DX: Z12.31 Encounter for screening mammogram for malignant neoplasm of breast (principal); Z85.3 Personal history of malignant neoplasm of breast; Z80.3 Family history of malignant neoplasm of breast
CPT/HCPCS: 77063; 77067

== ENCOUNTER → 2023-04-05 10:12 | Outpatient (CLI) | payer MEDICARE, SELFPAY ==
[2023-04-05 11:27] LABS: Alanine Aminotransferase 17 IU/L (<35); Albumin 4.1 g/dL (3.5-5.0); Albumin Globulin Ratio 1.5 (1.0-2.8); Alkaline Phosphatase 56 U/L (38-126); Aspartate Aminotransferase 21 IU/L (14-36); BUN Creatinine Ratio 24.6 (6-22); Bilirubin Total 0.6 mg/dL (0.2-1.3); Blood Urea Nitrogen 17 mg/dL (7-17); Calcium 9.8 mg/dL (8.4-10.2); Carbon Dioxide 24 mmol/L (22-32); Chloride 103 mmol/L (98-107); Cholesterol 193 mg/dL (140-199); Estimated Glomerular Filt Rate > 60 mL/min (>60); Globulin 2.8 g/dL (1.7-4.1); Glucose 95 mg/dL (80-110); HDL Cholesterol 65 mg/dL (40-60); HEMOLYSIS < 15 (0-50); LDL Cholesterol Calculated 105 mg/dL (<100); Potassium 4.7 mmol/L (3.4-5.1); Sodium 137 mmol/L (137-145); Total Protein 6.9 g/dL (6.3-8.2); Triglycerides 116 mg/dL (35-150)
[2023-04-05 11:35] LABS: Free T4, Direct Thyroxine 1.24 ng/dL (0.78-2.19)
[2023-04-05 11:49] LABS: Thyroid Stimulating Hormone 2.97 uIU/mL (0.47-4.68)
== END ==
PROVIDERS: Family Provider Internal Medicine; PCP Internal Medicine; Referring Provider Internal Medicine; Visit Provider Internal Medicine
DX: I10 Essential (primary) hypertension (principal); E03.9 Hypothyroidism, unspecified; F41.1 Generalized anxiety disorder
CPT/HCPCS: 36415; 80053; 80061; 84439; 84443

== ENCOUNTER 2023-11-01 08:15 | Outpatient (RCR) | payer MEDICARE, SELFPAY ==
--- NOTE | 2023-09-13 15:42 | PT.OIE ---
Current Diagnoses Pain in right knee (09/13/23) Other abnormalities of gait and mobility (09/13/23) Unspecified abnormalities of gait and mobility (09/13/23) Past Medical History (Last Reviewed 10/11/22 @ 10:56 by Nicol Bagley DO) Breast cancer Hearing loss Hypertension Hypothyroidism Monoallelic mutation of CADY gene PSVT (paroxysmal supraventricular tachycardia) Past Surgical History (Last Reviewed 10/11/22 @ 10:56 by Nicol Bagley DO) H/O cardiac radiofrequency ablation (~04/2016) H/O lumpectomy H/O mastectomy History of cataract removal with insertion of prosthetic lens (~2017) Hx of cholecystectomy Visit Care Team Role Provider Type Cal Bang MD Attending Provider Physician Family Provider Primary Care Provider Referring Provider Specialty: Internal Medicine Address: [address] [place] [address], [address], [facility] Email: [email or web address] Physical Therapy Initial Evaluation PT-OP-A Visit Information Start: 09/13/23 08:00 Freq: Status: Active Protocol: Document 09/13/23 10:26 MB (Rec: 09/13/23 10:55 MB [id number]) Out-Patient Physical Therapy Visit Information Visit Information Visit Type Initial Evaluation Visit Note AARP Medicare 04/05 before progress note or by 10/13/23 Visit Start Time 10:26 Visit Stop Time 11:06 Visit Number 1 Number of WELLHEAD PUMPER Visits 0 Evaluation Information Evaluation Date 09/13/23 PT-OP-B Current Condition Start: 09/13/23 08:00 Freq: Status: Active Protocol: Document 09/13/23 10:26 MB (Rec: 09/13/23 10:55 MB [id number]) Current Condition History of Current Condition Onset Date 6 months of right knee pain Current Complaints Right knee pain and light- headedness in the morning, fear of falls History of Current Condition Pt reports low energy and fear of falling, especially early in the day. 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 She does all the chores. She does not have any assistance at home. Her memory is suffering. Pt reports increased right knee pain when working in the yard and with walking a couple of blocks. Any amount of time being on her feet is bothersome. When asked, pt knows she needs to be able to go for walks and do HEP but she cannot state that she will be able to do this given her home chores and caring for her . Pt has to assist her if he falls. She hopes to get him into PT, too. Treatment Goals Patient/Caregiver Goals To get rid of the pain and be able to move more. PT-OP-C Subjective Start: 09/13/23 08:00 Freq: Status: Active Protocol: Document 09/13/23 10:26 MB (Rec: 09/13/23 10:55 MB [id number]) OP-PT Subjective Patient Comments Patient Comments See history of current condition Patient Questionnaires Lower Extremity Functional Scale LEFS Score 43 LEFS Impairment 40 to 59% Impaired (Score 32- 47) PT-OP-D Balance Start: 09/13/23 15:30 Freq: Status: Active Protocol: Document 09/13/23 10:26 MB (Rec: 09/13/23 15:33 MB [id number]) OP-PT Balance Assessment Standing Balance Standing Balance Comments Romberg with increased sway and SBA; pt holds PT's hand to get into B Tandem and with left foot behind, pt maintains position3 sec and with right foot behind, 10 sec Shaver Fall Scale Copyright Permission PT-OP-J Posture/Palpation/Skin Start: 09/13/23 08:00 Freq: Status: Active Protocol: Document 09/13/23 10:26 MB (Rec: 09/13/23 11:02 MB [id number]) Posture Evaluation Comments Posture Comments Standing posture in socks: forward head, rounded shoulder , increased thoracic kyphosis with convexity to the right, right iliac crest is mildly higher than the left, right inferior angle of scapula mildly higher than the left, increased Mandy angle right greater than left in standing PT-OP-K Range of Motion Start: 09/13/23 08:00 Freq: Status: Active Protocol: Document 09/13/23 10:26 MB (Rec: 09/13/23 11:07 MB [id number]) Knee Goniometric Range of Motion Knee Left Knee ROM WFL No Comments 5-121 in supine Right Knee ROM WFL No Comments 5-113 in supine PT-OP-M Strength Start: 09/13/23 08:00 Freq: Status: Active Protocol: Document 09/13/23 10:26 MB (Rec: 09/13/23 11:07 MB [id number]) Hip Strength Hip Manual Muscle Testing Left Flexion (L2) 4+ Good+ Extension (S1) 4 Good Abduction 4+ Good+ Adduction 4+ Good+ Right Flexion (L2) 4- Good- Extension (S1) 4- Good- Abduction 4- Good- Adduction 4- Good- Comments All MMT in supine Knee Strength Knee Manual Muscle Testing Left Flexion (S2) 4 Good Extension (L3) 5 Normal Right Flexion (S2) 4 Good Extension (L3) 5 Normal Ankle/Foot Strength Ankle and Foot Manual Muscle Testing Bilateral Dorsiflexion (L4) 5 Normal Toe Strength Toe Manual Muscle Testing Left Great Toe Extension 5 Normal Right Great Toe Extension 5 Normal PT-OP-Q Treatments Start: 09/13/23 08:00 Freq: Status: Active Protocol: Document 09/13/23 10:26 MB (Rec: 09/13/23 15:29 MB [id number]) Self-Care/Home Management Treatment Education Patient Education Fall Risk,Safety Other Education Ed pt in benefits of considering HHPT for if she has to manually assist him d/t falls and he needs walker rather than coming in to OPPT, ed pt that she will need to make priority to take care of herself including performing exercises and walking in order to meet her outpatient goals, ed in making fluids count, decreasing caffeinated fluids and increasing non-caffeinated fluids, ed in pillow use to support posture in bed PT-OP-T Assessment and Plan Start: 09/13/23 08:00 Freq: Status: Active Protocol: Document 09/13/23 10:26 MB (Rec: 09/13/23 10:55 MB [id number]) Physical Therapy Assessment Rehab Potential Rehabilitation Potential Fair Evaluation Complexity Number of Personal Factors/Comorbidities 1-2 Number of Body Systems Impaired 3 Clinical Presentation at Evaluation Evolving Impairments Impairments Activity Tolerance,Balance, Pain,Posture,ROM,Soft Tissue Mobility,Strength,Vestibular Goals 4 Impairment R LE weakness Fdc Goal (LTG) Pt will present with improved right hip and knee strength comparable to LLE to improve function and gait. LTG Duration 8 weeks 3 Impairment Lack of HEP Fdc Goal (LTG) Pt will perform progressive HEP with I including pelvic realignment exercises, flexibility, strengthening and balance exercises to improve pain, strength and balance. LTG Duration 8 weeks 2 Impairment LEF score 43/80 Foster Care Worker Goal (LTG) Pt will present with improved LEF score to reflect no more than 20% impairment to improve pain and function. LTG Duration 8 weeks 1 Impairment Evidence of imbalance Fdc Goal (LTG) Pt will perform WNLs on FGA to decrease fall risk. LTG Duration 8 weeks Assessment Summary Assessment Pt is an 83 y/o female reporting insidious onset of B knee pain and dizziness in the morning that she describes as light-headedness. Orthostatic assessment is negative with BP and HR in LUE : supine 125/77, 57; standing 135/82, 60; standing 1' 136/83 , 65. 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 She states she has no help at home and she does all caregiving and home tasks. When PT asks her if she feels she will be able to perform HEP and walking program in order to maximize benefits of OPPT, she states that she knows she should be she does not state that she has a way to do this. This may be a barrier to PT and so will monitor. She has no dizziness with rolling today. She presents with decreased right knee AROM in supine compared to the left and decreased right LE strength compared to left. She presents with imbalance with balance testing. Pt will benefit from PT to improve balance, flexibility and strength. Physical Therapy Plan Frequency and Duration Frequency of Treatment 1-2x/wk Duration of treatment (weeks) 8 Plan of Care Start Date 09/13/23 Plan of Care End Date 11/13/23 Therapeutic Interventions Therapeutic Interventions Balance Training,Canalithic Repositioning,Gait Training, Home Exercise Program,Joint Mobilizations,Manual Therapy, Neuromuscular Re-education, Patient/Caregiver Education, Self-Care/Home Management,Soft Tissue Mobilization,Taping, Therapeutic Activities, Therapeutic Exercises, Vestibular Rehabilitation Modalities Cold Pack/Ice Massage,Electric Stimulation,Hot Packs, Ultrasound Next Visit Focus/Plan Next Note Type Treatment Note Next Visit Plan Pelvic realignment exercises, possibly hamstring, calf or quad stretches, initiate manual work, consider FGA
--- NOTE | 2023-09-13 15:43 | PT.OPPOC ---
Physical, Occupational & Speech Therapy At [facility] Current Diagnoses Pain in right knee (09/13/23) Other abnormalities of gait and mobility (09/13/23) Unspecified abnormalities of gait and mobility (09/13/23) Visit Care Team Role Provider Type Cal Bang MD Attending Provider Physician Family Provider Primary Care Provider Referring Provider Specialty: Internal Medicine Address: [address] [place] [address], [address], [place], [facility] Email: [email or web address] Plan Of Care PT-OP-T Assessment and Plan Start: 09/13/23 08:00 Freq: Status: Active Protocol: Document 09/13/23 10:26 MB (Rec: 09/13/23 10:55 MB [id number]) Physical Therapy Assessment Rehab Potential Rehabilitation Potential Fair Evaluation Complexity Number of Personal Factors/Comorbidities 1-2 Number of Body Systems Impaired 3 Clinical Presentation at Evaluation Evolving Impairments Impairments Activity Tolerance,Balance, Pain,Posture,ROM,Soft Tissue Mobility,Strength,Vestibular Goals 4 Impairment R LE weakness Dress Shoe Inspector Goal (LTG) Pt will present with improved right hip and knee strength comparable to LLE to improve function and gait. LTG Duration 8 weeks 3 Impairment Lack of HEP Dress Shoe Inspector Goal (LTG) Pt will perform progressive HEP with I including pelvic realignment exercises, flexibility, strengthening and balance exercises to improve pain, strength and balance. LTG Duration 8 weeks 2 Impairment LEF score 43/80 Dress Shoe Inspector Goal (LTG) Pt will present with improved LEF score to reflect no more than 20% impairment to improve pain and function. LTG Duration 8 weeks 1 Impairment Evidence of imbalance Alf Goal (LTG) Pt will perform WNLs on FGA to decrease fall risk. LTG Duration 8 weeks Assessment Summary Assessment Pt is an 83 y/o female reporting insidious onset of B knee pain and dizziness in the morning that she describes as light-headedness. Orthostatic assessment is negative with BP and HR in LUE : supine 125/77, 57; standing 135/82, 60; standing 1' 136/83 , 65. 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 She states she has no help at home and she does all caregiving and home tasks. When PT asks her if she feels she will be able to perform HEP and walking program in order to maximize benefits of OPPT, she states that she knows she should be she does not state that she has a way to do this. This may be a barrier to PT and so will monitor. She has no dizziness with rolling today. She presents with decreased right knee AROM in supine compared to the left and decreased right LE strength compared to left. She presents with imbalance with balance testing. Pt will benefit from PT to improve balance, flexibility and strength. Physical Therapy Plan Frequency and Duration Frequency of Treatment 1-2x/wk Duration of treatment (weeks) 8 Plan of Care Start Date 09/13/23 Plan of Care End Date 11/13/23 Therapeutic Interventions Therapeutic Interventions Balance Training,Canalithic Repositioning,Gait Training, Home Exercise Program,Joint Mobilizations,Manual Therapy, Neuromuscular Re-education, Patient/Caregiver Education, Self-Care/Home Management,Soft Tissue Mobilization,Taping, Therapeutic Activities, Therapeutic Exercises, Vestibular Rehabilitation Modalities Cold Pack/Ice Massage,Electric Stimulation,Hot Packs, Ultrasound Next Visit Focus/Plan Next Note Type Treatment Note Next Visit Plan Pelvic realignment exercises, possibly hamstring, calf or quad stretches, initiate manual work, consider FGA Plan of Care Dates Plan of Care Start Date 09/13/23 Plan of Care End Date 11/13/23 Electronically Signed by: Marisela Lyman, PT 09/13/23 5017 If you are in agreement with this Plan of Care, please return a signed and dated copy. I have reviewed this Plan of Care and certify that the skilled therapy services above are required to meet the patient?s needs. Physician Signature Date Printed Name and Credentials Clinical Instructor Signature Printed Name and Credentials
--- NOTE | 2023-09-20 11:16 | PT.OTN ---
Current Diagnoses Pain in right knee (09/20/23) Other abnormalities of gait and mobility (09/20/23) Unspecified abnormalities of gait and mobility (09/20/23) Physical Therapy Treatment Note PT-OP-A Visit Information Start: 09/13/23 08:00 Freq: Status: Active Protocol: Document 09/20/23 10:32 MB (Rec: 09/20/23 11:16 MB [id number]) Out-Patient Physical Therapy Visit Information Visit Information Visit Type Treatment Note Visit Note AARP Medicare 05/06 before progress note or by 10/13/23 Visit Start Time 10:32 Visit Stop Time 11:12 Visit Number 2 Number of BUSINESS DEVELOPMENT Visits 0 Evaluation Information Evaluation Date 09/13/23 PT-OP-B Current Condition Start: 09/13/23 08:00 Freq: Status: Active Protocol: Document 09/13/23 10:26 MB (Rec: 09/13/23 10:55 MB [id number]) Current Condition History of Current Condition Onset Date 6 months of right knee pain Current Complaints Right knee pain and light- headedness in the morning, fear of falls History of Current Condition Pt reports low energy and fear of falling, especially early in the day. 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 She does all the chores. She does not have any assistance at home. Her memory is suffering. Pt reports increased right knee pain when working in the yard and with walking a couple of blocks. Any amount of time being on her feet is bothersome. When asked, pt knows she needs to be able to go for walks and do HEP but she cannot state that she will be able to do this given her home chores and caring for her . Pt has to assist her if he falls. She hopes to get him into PT, too. Treatment Goals Patient/Caregiver Goals To get rid of the pain and be able to move more. PT-OP-C Subjective Start: 09/13/23 08:00 Freq: Status: Active Protocol: Document 09/20/23 10:32 MB (Rec: 09/20/23 11:16 MB [id number]) OP-PT Subjective Patient Comments Patient Comments Pt states she is glad to be at PT. PT-OP-D Balance Start: 09/13/23 15:30 Freq: Status: Active Protocol: Document 09/13/23 10:26 MB (Rec: 09/13/23 15:33 MB [id number]) OP-PT Balance Assessment Standing Balance Standing Balance Comments Romberg with increased sway and SBA; pt holds PT's hand to get into B Tandem and with left foot behind, pt maintains position3 sec and with right foot behind, 10 sec Shaver Fall Scale Copyright Permission PT-OP-J Posture/Palpation/Skin Start: 09/13/23 08:00 Freq: Status: Active Protocol: Document 09/13/23 10:26 MB (Rec: 09/13/23 11:02 MB [id number]) Posture Evaluation Comments Posture Comments Standing posture in socks: forward head, rounded shoulder , increased thoracic kyphosis with convexity to the right, right iliac crest is mildly higher than the left, right inferior angle of scapula mildly higher than the left, increased Mandy angle right greater than left in standing PT-OP-K Range of Motion Start: 09/13/23 08:00 Freq: Status: Active Protocol: Document 09/13/23 10:26 MB (Rec: 09/13/23 11:07 MB [id number]) Knee Goniometric Range of Motion Knee Left Knee ROM WFL No Comments 5-121 in supine Right Knee ROM WFL No Comments 5-113 in supine PT-OP-M Strength Start: 09/13/23 08:00 Freq: Status: Active Protocol: Document 09/13/23 10:26 MB (Rec: 09/13/23 11:07 MB [id number]) Hip Strength Hip Manual Muscle Testing Left Flexion (L2) 4+ Good+ Extension (S1) 4 Good Abduction 4+ Good+ Adduction 4+ Good+ Right Flexion (L2) 4- Good- Extension (S1) 4- Good- Abduction 4- Good- Adduction 4- Good- Comments All MMT in supine Knee Strength Knee Manual Muscle Testing Left Flexion (S2) 4 Good Extension (L3) 5 Normal Right Flexion (S2) 4 Good Extension (L3) 5 Normal Ankle/Foot Strength Ankle and Foot Manual Muscle Testing Bilateral Dorsiflexion (L4) 5 Normal Toe Strength Toe Manual Muscle Testing Left Great Toe Extension 5 Normal Right Great Toe Extension 5 Normal PT-OP-Q Treatments Start: 09/13/23 08:00 Freq: Status: Active Protocol: Document 09/20/23 10:32 MB (Rec: 09/20/23 11:16 MB [id number]) Therapeutic Exercises Supine Exercises Pelvic realignment exercises Side bilateral Equipment Used Ball Reps/Minutes 5 reps, 3 sec hold all exercises in order Comments Feet together ball squeeze, knee opp ankle iso, thigh press down iso Manual Therapy Treatment Other Other Manual Treatments Head and legs supported: STM B plantar feet, calves, vastus lateralis, hamstrings, TFL, hip rotators and positional release thoracolumbar paraspinals Neuro Re-Education Treatment Balance Activities FGA Comments FGA score is 9/30 with trouble with all tasks and see plan below for future treatment ideas PT-OP-T Assessment and Plan Start: 09/13/23 08:00 Freq: Status: Active Protocol: Document 09/20/23 10:32 MB (Rec: 09/20/23 11:16 MB [id number]) Physical Therapy Assessment Rehab Potential Rehabilitation Potential Fair Evaluation Complexity Number of Personal Factors/Comorbidities 1-2 Number of Body Systems Impaired 3 Clinical Presentation at Evaluation Evolving Impairments Impairments Activity Tolerance,Balance, Pain,Posture,ROM,Soft Tissue Mobility,Strength,Vestibular Goals 4 Impairment R LE weakness Operations Boardman Goal (LTG) Pt will present with improved right hip and knee strength comparable to LLE to improve function and gait. LTG Duration 8 weeks 3 Impairment Lack of HEP Operations Boardman Goal (LTG) Pt will perform progressive HEP with I including pelvic realignment exercises, flexibility, strengthening and balance exercises to improve pain, strength and balance. LTG Duration 8 weeks 2 Impairment LEF score 43/80 Care Home Goal (LTG) Pt will present with improved LEF score to reflect no more than 20% impairment to improve pain and function. LTG Duration 8 weeks 1 Impairment Evidence of imbalance Operations Boardman Goal (LTG) Pt will perform WNLs on FGA to decrease fall risk. LTG Duration 8 weeks Assessment Summary Assessment FGA reveals severe balance impairment and will address with exercises in future treatments and consider gait training with cane or walking stick. Initiated pelvic realignment exercises today and she will need review of these. Increased tension in B medial hamstrings and PFs today compared to other muscle groups. Physical Therapy Plan Frequency and Duration Frequency of Treatment 1-2x/wk Duration of treatment (weeks) 8 Plan of Care Start Date 09/13/23 Plan of Care End Date 11/13/23 Therapeutic Interventions Therapeutic Interventions Balance Training,Canalithic Repositioning,Gait Training, Home Exercise Program,Joint Mobilizations,Manual Therapy, Neuromuscular Re-education, Patient/Caregiver Education, Self-Care/Home Management,Soft Tissue Mobilization,Taping, Therapeutic Activities, Therapeutic Exercises, Vestibular Rehabilitation Modalities Cold Pack/Ice Massage,Electric Stimulation,Hot Packs, Ultrasound Next Visit Focus/Plan Next Note Type Treatment Note Next Visit Plan Review pelvic realignment exercises, consider upright bike, possibly hamstring (hook lying), calf (standing), quad (Royer) stretches, gentle manual work Consider FGA tasks for HEP: walking in hallway with fingertip drag against wall: forward gait with horizontal and vertical head turns, gait with EC, backwards gait and tandem gait Try trekking pole/poles for longer gait such as 6MWT Consider [place] HEP for leg strengthening and balance if pt tolerates (pain)
--- NOTE | 2023-09-25 08:59 | PT.OTN ---
Current Diagnoses Pain in right knee (09/25/23) Other abnormalities of gait and mobility (09/25/23) Unspecified abnormalities of gait and mobility (09/25/23) Physical Therapy Treatment Note PT-OP-A Visit Information Start: 09/13/23 08:00 Freq: Status: Active Protocol: Document 09/25/23 08:17 MB (Rec: 09/25/23 08:55 MB [id number]) Out-Patient Physical Therapy Visit Information Visit Information Visit Type Treatment Note Visit Note AARP Medicare 05/06 before progress note or by 10/13/23 Visit Start Time 08:17 Visit Stop Time 08:57 Visit Number 3 Number of ATHLETIC SHOE DESIGNER Visits 0 Evaluation Information Evaluation Date 09/13/23 PT-OP-B Current Condition Start: 09/13/23 08:00 Freq: Status: Active Protocol: Document 09/13/23 10:26 MB (Rec: 09/13/23 10:55 MB [id number]) Current Condition History of Current Condition Onset Date 6 months of right knee pain Current Complaints Right knee pain and light- headedness in the morning, fear of falls History of Current Condition Pt reports low energy and fear of falling, especially early in the day. 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 She does all the chores. She does not have any assistance at home. Her memory is suffering. Pt reports increased right knee pain when working in the yard and with walking a couple of blocks. Any amount of time being on her feet is bothersome. When asked, pt knows she needs to be able to go for walks and do HEP but she cannot state that she will be able to do this given her home chores and caring for her . Pt has to assist her if he falls. She hopes to get him into PT, too. Treatment Goals Patient/Caregiver Goals To get rid of the pain and be able to move more. PT-OP-C Subjective Start: 09/13/23 08:00 Freq: Status: Active Protocol: Document 09/25/23 08:17 MB (Rec: 09/25/23 08:55 MB [id number]) OP-PT Subjective Patient Comments Patient Comments Pt is doing her exercises right before she goes to bed. She is tired today and has trouble standing this morning. She slept okay. PT-OP-D Balance Start: 09/13/23 15:30 Freq: Status: Active Protocol: Document 09/13/23 10:26 MB (Rec: 09/13/23 15:33 MB [id number]) OP-PT Balance Assessment Standing Balance Standing Balance Comments Romberg with increased sway and SBA; pt holds PT's hand to get into B Tandem and with left foot behind, pt maintains position3 sec and with right foot behind, 10 sec Shaver Fall Scale Copyright Permission PT-OP-J Posture/Palpation/Skin Start: 09/13/23 08:00 Freq: Status: Active Protocol: Document 09/13/23 10:26 MB (Rec: 09/13/23 11:02 MB [id number]) Posture Evaluation Comments Posture Comments Standing posture in socks: forward head, rounded shoulder , increased thoracic kyphosis with convexity to the right, right iliac crest is mildly higher than the left, right inferior angle of scapula mildly higher than the left, increased Mandy angle right greater than left in standing PT-OP-K Range of Motion Start: 09/13/23 08:00 Freq: Status: Active Protocol: Document 09/13/23 10:26 MB (Rec: 09/13/23 11:07 MB [id number]) Knee Goniometric Range of Motion Knee Left Knee ROM WFL No Comments 5-121 in supine Right Knee ROM WFL No Comments 5-113 in supine PT-OP-M Strength Start: 09/13/23 08:00 Freq: Status: Active Protocol: Document 09/13/23 10:26 MB (Rec: 09/13/23 11:07 MB [id number]) Hip Strength Hip Manual Muscle Testing Left Flexion (L2) 4+ Good+ Extension (S1) 4 Good Abduction 4+ Good+ Adduction 4+ Good+ Right Flexion (L2) 4- Good- Extension (S1) 4- Good- Abduction 4- Good- Adduction 4- Good- Comments All MMT in supine Knee Strength Knee Manual Muscle Testing Left Flexion (S2) 4 Good Extension (L3) 5 Normal Right Flexion (S2) 4 Good Extension (L3) 5 Normal Ankle/Foot Strength Ankle and Foot Manual Muscle Testing Bilateral Dorsiflexion (L4) 5 Normal Toe Strength Toe Manual Muscle Testing Left Great Toe Extension 5 Normal Right Great Toe Extension 5 Normal PT-OP-Q Treatments Start: 09/13/23 08:00 Freq: Status: Active Protocol: Document 09/25/23 08:17 MB (Rec: 09/25/23 08:55 MB [id number]) Cardio Equipment Bicycle (Upright) Duration (Minutes) 10 Resistance 3 Seat Position 4 Therapeutic Exercises Supine Exercises Royer stretch Side bilateral Comments Opposite leg to chest, bend knee more to increase stretch of dangling leg Hamstring stretch with AP MWM Side bilateral Comments Hand behind thigh, AP 30 times , one rep each leg Pelvic realignment exercises Side bilateral Equipment Used Ball Reps/Minutes 5 reps, 3 sec hold all exercises in order Comments Feet together ball squeeze, knee opp ankle iso, thigh press down iso Standing Exercises PF stretches and recovery toe raises Side bilateral Reps/Minutes 1 rep soleus and 1 rep gastroc stretches Comments Recovery toe raises after treatment, at least 10 reps Manual Therapy Treatment Other Other Manual Treatments Head and legs supported: STM B calves, vastus lateralis, hamstrings and tension in all these muscle groups B today PT-OP-T Assessment and Plan Start: 09/13/23 08:00 Freq: Status: Active Protocol: Document 09/25/23 08:17 MB (Rec: 09/25/23 08:55 MB [id number]) Physical Therapy Assessment Rehab Potential Rehabilitation Potential Fair Evaluation Complexity Number of Personal Factors/Comorbidities 1-2 Number of Body Systems Impaired 3 Clinical Presentation at Evaluation Evolving Impairments Impairments Activity Tolerance,Balance, Pain,Posture,ROM,Soft Tissue Mobility,Strength,Vestibular Goals 4 Impairment R LE weakness Chcf Goal (LTG) Pt will present with improved right hip and knee strength comparable to LLE to improve function and gait. LTG Duration 8 weeks 3 Impairment Lack of HEP Sole Cutter Goal (LTG) Pt will perform progressive HEP with I including pelvic realignment exercises, flexibility, strengthening and balance exercises to improve pain, strength and balance. LTG Duration 8 weeks 2 Impairment LEF score 43/80 Sole Cutter Goal (LTG) Pt will present with improved LEF score to reflect no more than 20% impairment to improve pain and function. LTG Duration 8 weeks 1 Impairment Evidence of imbalance Chcf Goal (LTG) Pt will perform WNLs on FGA to decrease fall risk. LTG Duration 8 weeks Assessment Summary Assessment Pt has some trouble with pelvic realignment exercises today and may need to review next treatment as well. Also review stretches given today. Con't progression per below. Physical Therapy Plan Frequency and Duration Frequency of Treatment 1-2x/wk Duration of treatment (weeks) 8 Plan of Care Start Date 09/13/23 Plan of Care End Date 11/13/23 Therapeutic Interventions Therapeutic Interventions Balance Training,Canalithic Repositioning,Gait Training, Home Exercise Program,Joint Mobilizations,Manual Therapy, Neuromuscular Re-education, Patient/Caregiver Education, Self-Care/Home Management,Soft Tissue Mobilization,Taping, Therapeutic Activities, Therapeutic Exercises, Vestibular Rehabilitation Modalities Cold Pack/Ice Massage,Electric Stimulation,Hot Packs, Ultrasound Next Visit Focus/Plan Next Note Type Treatment Note Next Visit Plan Review pelvic realignment exercises and stretches, con't upright bike for warm-up. Consider cross the leg hip rotator stretch with hip flexion component in hook lying. Consider FGA tasks for HEP: walking in hallway with fingertip drag against wall: forward gait with horizontal and vertical head turns, gait with EC, backwards gait and tandem gait Try trekking pole/poles for longer gait such as 6MWT Consider [place] HEP for leg strengthening and balance if pt tolerates (pain).
--- NOTE | 2023-09-27 16:34 | PT.OTN ---
Current Diagnoses Pain in right knee (09/27/23) Other abnormalities of gait and mobility (09/27/23) Unspecified abnormalities of gait and mobility (09/27/23) Physical Therapy Treatment Note PT-OP-A Visit Information Start: 09/13/23 08:00 Freq: Status: Active Protocol: Document 09/27/23 12:54 AB (Rec: 09/27/23 16:34 AB [id number]) Out-Patient Physical Therapy Visit Information Visit Information Visit Type Treatment Note Visit Note AARP Medicare 07/04 before progress note or by 10/13/23 Visit Start Time 13:49 Visit Stop Time 14:30 Visit Number 4 Number of COLLEGE RECRUITER Visits 1 Evaluation Information Evaluation Date 09/13/23 PT-OP-B Current Condition Start: 09/13/23 08:00 Freq: Status: Active Protocol: Document 09/13/23 10:26 MB (Rec: 09/13/23 10:55 MB [id number]) Current Condition History of Current Condition Onset Date 6 months of right knee pain Current Complaints Right knee pain and light- headedness in the morning, fear of falls History of Current Condition Pt reports low energy and fear of falling, especially early in the day. 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 She does all the chores. She does not have any assistance at home. Her memory is suffering. Pt reports increased right knee pain when working in the yard and with walking a couple of blocks. Any amount of time being on her feet is bothersome. When asked, pt knows she needs to be able to go for walks and do HEP but she cannot state that she will be able to do this given her home chores and caring for her . Pt has to assist her if he falls. She hopes to get him into PT, too. Treatment Goals Patient/Caregiver Goals To get rid of the pain and be able to move more. PT-OP-C Subjective Start: 09/13/23 08:00 Freq: Status: Active Protocol: Document 09/27/23 12:54 AB (Rec: 09/27/23 16:34 AB [id number]) OP-PT Subjective Patient Comments Patient Comments Patient reports she is walking faster since having sessions with Marisela. Patient reports pain is less, still has some that comes and goes. PT-OP-D Balance Start: 09/13/23 15:30 Freq: Status: Active Protocol: Document 09/13/23 10:26 MB (Rec: 09/13/23 15:33 MB [id number]) OP-PT Balance Assessment Standing Balance Standing Balance Comments Romberg with increased sway and SBA; pt holds PT's hand to get into B Tandem and with left foot behind, pt maintains position3 sec and with right foot behind, 10 sec Shaver Fall Scale Copyright Permission PT-OP-J Posture/Palpation/Skin Start: 09/13/23 08:00 Freq: Status: Active Protocol: Document 09/13/23 10:26 MB (Rec: 09/13/23 11:02 MB [id number]) Posture Evaluation Comments Posture Comments Standing posture in socks: forward head, rounded shoulder , increased thoracic kyphosis with convexity to the right, right iliac crest is mildly higher than the left, right inferior angle of scapula mildly higher than the left, increased Mandy angle right greater than left in standing PT-OP-K Range of Motion Start: 09/13/23 08:00 Freq: Status: Active Protocol: Document 09/13/23 10:26 MB (Rec: 09/13/23 11:07 MB [id number]) Knee Goniometric Range of Motion Knee Left Knee ROM WFL No Comments 5-121 in supine Right Knee ROM WFL No Comments 5-113 in supine PT-OP-M Strength Start: 09/13/23 08:00 Freq: Status: Active Protocol: Document 09/13/23 10:26 MB (Rec: 09/13/23 11:07 MB [id number]) Hip Strength Hip Manual Muscle Testing Left Flexion (L2) 4+ Good+ Extension (S1) 4 Good Abduction 4+ Good+ Adduction 4+ Good+ Right Flexion (L2) 4- Good- Extension (S1) 4- Good- Abduction 4- Good- Adduction 4- Good- Comments All MMT in supine Knee Strength Knee Manual Muscle Testing Left Flexion (S2) 4 Good Extension (L3) 5 Normal Right Flexion (S2) 4 Good Extension (L3) 5 Normal Ankle/Foot Strength Ankle and Foot Manual Muscle Testing Bilateral Dorsiflexion (L4) 5 Normal Toe Strength Toe Manual Muscle Testing Left Great Toe Extension 5 Normal Right Great Toe Extension 5 Normal PT-OP-Q Treatments Start: 09/13/23 08:00 Freq: Status: Active Protocol: Document 09/27/23 12:54 AB (Rec: 09/27/23 16:34 AB [id number]) Cardio Equipment Bicycle (Upright) Duration (Minutes) 10 Resistance 3 Seat Position 4 Therapeutic Exercises Supine Exercises figure 4 with knee to chest mvt Supine Exercise Name HEP Side bilateral Resistance towel to hold LE Reps/Minutes 60 seconds X 2 each LE Royer stretch Supine Exercise Name edge of bed Side bilateral Comments Opposite leg to chest, bend knee more to increase stretch of dangling leg Hamstring stretch with AP MWM Side bilateral Comments Hand behind thigh, AP 30 times , one rep each leg Pelvic realignment exercises Side bilateral Equipment Used Ball Reps/Minutes 5 reps, 3 sec hold all exercises in order Comments Feet together ball squeeze, knee opp ankle iso, thigh press down iso Neuro Re-Education Treatment Balance Activities ambulation with visual scanning Reps/Duration 54 feet X2 Comments CGA ambulation with head turns Reps/Duration 54 feet Comments CGA ambulation with finger on wa Reps/Duration 54 feet Comments CGA tandem stepping Reps/Duration 54 feet Comments CGA retro stepping Reps/Duration 54 feet Comments CGA PT-OP-T Assessment and Plan Start: 09/13/23 08:00 Freq: Status: Active Protocol: Document 09/27/23 12:54 AB (Rec: 09/27/23 16:34 AB [id number]) Physical Therapy Assessment Goals 4 Impairment R LE weakness Care Home Goal (LTG) Pt will present with improved right hip and knee strength comparable to LLE to improve function and gait. LTG Duration 8 weeks 3 Impairment Lack of HEP Special Certificate Dictator Goal (LTG) Pt will perform progressive HEP with I including pelvic realignment exercises, flexibility, strengthening and balance exercises to improve pain, strength and balance. LTG Duration 8 weeks 2 Impairment LEF score 43/80 Care Home Goal (LTG) Pt will present with improved LEF score to reflect no more than 20% impairment to improve pain and function. LTG Duration 8 weeks 1 Impairment Evidence of imbalance Care Home Goal (LTG) Pt will perform WNLs on FGA to decrease fall risk. LTG Duration 8 weeks Assessment Summary Assessment Patient required minimal cues today from pelvic realignment, but reports she has not been doing Royer stretch and required increased verbal cues to perform this exercise. Patient reports she feels a little better end of session compared to start of session. Physical Therapy Plan Frequency and Duration Frequency of Treatment 1-2x/wk Duration of treatment (weeks) 8 Plan of Care Start Date 09/13/23 Plan of Care End Date 11/13/23 Next Visit Focus/Plan Next Note Type Treatment Note Next Visit Plan Review pelvic realignment exercises and stretches, con't upright bike for warm-up. assess juan to cross the leg hip rotator stretch with hip flexion component in hook lying. Consider/review prior to HEP addition FGA tasks for HEP: walking in hallway with fingertip drag against wall: forward gait with horizontal and vertical head turns, gait with EC, backwards gait and tandem gait Try trekking pole/poles for longer gait such as 6MWT Consider [place] HEP for leg strengthening and balance if pt tolerates (pain).
--- NOTE | 2023-10-02 09:00 | PT.OTN ---
Current Diagnoses Pain in right knee (10/02/23) Other abnormalities of gait and mobility (10/02/23) Unspecified abnormalities of gait and mobility (10/02/23) Physical Therapy Treatment Note PT-OP-A Visit Information Start: 09/13/23 08:00 Freq: Status: Active Protocol: Document 10/02/23 08:15 SP (Rec: 10/02/23 09:12 SP [id number]) Out-Patient Physical Therapy Visit Information Visit Information Visit Type Treatment Note Visit Note AARP Medicare 08/03 before progress note or by 10/13/23 Visit Start Time 08:15 Visit Stop Time 09:00 Visit Number 5 Number of RENTAL CLERK Visits 2 Evaluation Information Evaluation Date 09/13/23 PT-OP-B Current Condition Start: 09/13/23 08:00 Freq: Status: Active Protocol: Document 09/13/23 10:26 MB (Rec: 09/13/23 10:55 MB [id number]) Current Condition History of Current Condition Onset Date 6 months of right knee pain Current Complaints Right knee pain and light- headedness in the morning, fear of falls History of Current Condition Pt reports low energy and fear of falling, especially early in the day. 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 She does all the chores. She does not have any assistance at home. Her memory is suffering. Pt reports increased right knee pain when working in the yard and with walking a couple of blocks. Any amount of time being on her feet is bothersome. When asked, pt knows she needs to be able to go for walks and do HEP but she cannot state that she will be able to do this given her home chores and caring for her . Pt has to assist her if he falls. She hopes to get him into PT, too. Treatment Goals Patient/Caregiver Goals To get rid of the pain and be able to move more. PT-OP-C Subjective Start: 09/13/23 08:00 Freq: Status: Active Protocol: Document 10/02/23 08:15 SP (Rec: 10/02/23 09:12 SP [id number]) OP-PT Subjective Patient Comments Patient Comments Pt reports so pleased with how doing, no pain and not having dizziness as much. But stood fast yesterday reaching into car to get box itmes and fell backward getting out of car carrying box crafts for [facility] at [facility]. PT-OP-D Balance Start: 09/13/23 15:30 Freq: Status: Active Protocol: Document 09/13/23 10:26 MB (Rec: 09/13/23 15:33 MB [id number]) OP-PT Balance Assessment Standing Balance Standing Balance Comments Romberg with increased sway and SBA; pt holds PT's hand to get into B Tandem and with left foot behind, pt maintains position3 sec and with right foot behind, 10 sec Shaver Fall Scale Copyright Permission PT-OP-J Posture/Palpation/Skin Start: 09/13/23 08:00 Freq: Status: Active Protocol: Document 09/13/23 10:26 MB (Rec: 09/13/23 11:02 MB [id number]) Posture Evaluation Comments Posture Comments Standing posture in socks: forward head, rounded shoulder , increased thoracic kyphosis with convexity to the right, right iliac crest is mildly higher than the left, right inferior angle of scapula mildly higher than the left, increased Mandy angle right greater than left in standing PT-OP-K Range of Motion Start: 09/13/23 08:00 Freq: Status: Active Protocol: Document 09/13/23 10:26 MB (Rec: 09/13/23 11:07 MB [id number]) Knee Goniometric Range of Motion Knee Left Knee ROM WFL No Comments 5-121 in supine Right Knee ROM WFL No Comments 5-113 in supine PT-OP-M Strength Start: 09/13/23 08:00 Freq: Status: Active Protocol: Document 09/13/23 10:26 MB (Rec: 09/13/23 11:07 MB [id number]) Hip Strength Hip Manual Muscle Testing Left Flexion (L2) 4+ Good+ Extension (S1) 4 Good Abduction 4+ Good+ Adduction 4+ Good+ Right Flexion (L2) 4- Good- Extension (S1) 4- Good- Abduction 4- Good- Adduction 4- Good- Comments All MMT in supine Knee Strength Knee Manual Muscle Testing Left Flexion (S2) 4 Good Extension (L3) 5 Normal Right Flexion (S2) 4 Good Extension (L3) 5 Normal Ankle/Foot Strength Ankle and Foot Manual Muscle Testing Bilateral Dorsiflexion (L4) 5 Normal Toe Strength Toe Manual Muscle Testing Left Great Toe Extension 5 Normal Right Great Toe Extension 5 Normal PT-OP-Q Treatments Start: 09/13/23 08:00 Freq: Status: Active Protocol: Document 10/02/23 08:15 SP (Rec: 10/02/23 09:12 SP [id number]) Therapeutic Exercises Supine Exercises figure 4 with knee to chest mvt Supine Exercise Name HEP Side bilateral Resistance towel to hold LE Reps/Minutes 60 seconds each LE Comments good feedback stretch Royer stretch Supine Exercise Name side of bed leg dangle /c opp KTC Side bilateral Equipment Used use towel Reps/Minutes 45 sec Comments Opposite leg to chest, bend knee more to increase stretch of dangling leg Hamstring stretch with AP MWM Side bilateral Equipment Used towel assist behind thigh Comments Hand behind thigh, AP 30 times , one rep each leg Standing Exercises PF stretches and recovery toe raises Standing Exercise Name 1. gastroc & soleus stretch 2. heel & toe raises Side bilateral Reps/Minutes 1. 30 sec hold each 2. 10 reps Comments 1. hands on wall 2. contact counter Neuro Re-Education Treatment Balance Activities ambulation with head turns Details added to HEP Reps/Duration 20 ft x3 laps Comments close SBA *finger glide on wall *cued kneep feet away from each other improved lessen lateral lean ambulation with finger on wa Reps/Duration 25 ft x2 laps Comments S not need contact wall tandem stepping Reps/Duration 20 ft x2 laps Comments close SBA * finger on wall *cued kneep feet away from each other retro stepping Details added toHEP Reps/Duration 20 ft x3 laps Comments close SBA *PRN finger glide on wall *cued kneep feet away from each other PT-OP-T Assessment and Plan Start: 09/13/23 08:00 Freq: Status: Active Protocol: Document 10/02/23 08:15 SP (Rec: 10/02/23 09:12 SP [id number]) Physical Therapy Assessment Goals 4 Impairment R LE weakness Blackjack Supervisor Goal (LTG) Pt will present with improved right hip and knee strength comparable to LLE to improve function and gait. LTG Duration 8 weeks 3 Impairment Lack of HEP Blackjack Supervisor Goal (LTG) Pt will perform progressive HEP with I including pelvic realignment exercises, flexibility, strengthening and balance exercises to improve pain, strength and balance. LTG Duration 8 weeks 2 Impairment LEF score 43/80 Fdc Goal (LTG) Pt will present with improved LEF score to reflect no more than 20% impairment to improve pain and function. LTG Duration 8 weeks 1 Impairment Evidence of imbalance Fdc Goal (LTG) Pt will perform WNLs on FGA to decrease fall risk. LTG Duration 8 weeks Assessment Summary Assessment Pt improved performance of Royer stretch with ed and use towel perpendicular to table as shown in HO vs parallel in previous tx. Physical Therapy Plan Frequency and Duration Frequency of Treatment 1-2x/wk Duration of treatment (weeks) 8 Plan of Care Start Date 09/13/23 Plan of Care End Date 11/13/23 Therapeutic Interventions Therapeutic Interventions Balance Training,Canalithic Repositioning,Gait Training, Home Exercise Program,Joint Mobilizations,Manual Therapy, Neuromuscular Re-education, Patient/Caregiver Education, Self-Care/Home Management,Soft Tissue Mobilization,Taping, Therapeutic Activities, Therapeutic Exercises, Vestibular Rehabilitation Modalities Cold Pack/Ice Massage,Electric Stimulation,Hot Packs, Ultrasound Next Visit Focus/Plan Next Note Type Treatment Note Next Visit Plan Con't upright bike for warm-up and added FGA tasks for HEP / c finger tip glide wall: HTs/ back stepping. Next progress tandem and EC. Future:Try trekking pole/poles for longer gait such as 6MWT Consider [place] HEP for leg strengthening and balance if pt tolerates (pain).
--- NOTE | 2023-10-04 14:30 | PT.OTN ---
Current Diagnoses Pain in right knee (10/04/23) Other abnormalities of gait and mobility (10/04/23) Unspecified abnormalities of gait and mobility (10/04/23) Physical Therapy Treatment Note PT-OP-A Visit Information Start: 09/13/23 08:00 Freq: Status: Active Protocol: Document 10/04/23 13:50 SP (Rec: 10/04/23 14:36 SP [id number]) Out-Patient Physical Therapy Visit Information Visit Information Visit Type Treatment Note Visit Note AARP Medicare 09/03 before progress note or by 10/13/23 Pt 7 min late for appt. Visit Start Time 13:52 Visit Stop Time 14:30 Visit Number 6 Number of GLOBAL CEO Visits 3 Evaluation Information Evaluation Date 09/13/23 PT-OP-B Current Condition Start: 09/13/23 08:00 Freq: Status: Active Protocol: Document 09/13/23 10:26 MB (Rec: 09/13/23 10:55 MB [id number]) Current Condition History of Current Condition Onset Date 6 months of right knee pain Current Complaints Right knee pain and light- headedness in the morning, fear of falls History of Current Condition Pt reports low energy and fear of falling, especially early in the day. 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 She does all the chores. She does not have any assistance at home. Her memory is suffering. Pt reports increased right knee pain when working in the yard and with walking a couple of blocks. Any amount of time being on her feet is bothersome. When asked, pt knows she needs to be able to go for walks and do HEP but she cannot state that she will be able to do this given her home chores and caring for her . Pt has to assist her if he falls. She hopes to get him into PT, too. Treatment Goals Patient/Caregiver Goals To get rid of the pain and be able to move more. PT-OP-C Subjective Start: 09/13/23 08:00 Freq: Status: Active Protocol: Document 10/04/23 13:50 SP (Rec: 10/04/23 14:36 SP [id number]) OP-PT Subjective Patient Comments Patient Comments Pt reports thought about using the word dizziness and not feeling dizzy but she uses dizzy for feeling off balance/ unsteady. She felt unsteady when getting up from seated and looking up and reaching high in closet. She reported walked 1/2 to 3/4 mile since starting PT. She trialed before PT and found didn't have the endurance and unsteady. PT-OP-D Balance Start: 09/13/23 15:30 Freq: Status: Active Protocol: Document 09/13/23 10:26 MB (Rec: 09/13/23 15:33 MB [id number]) OP-PT Balance Assessment Standing Balance Standing Balance Comments Romberg with increased sway and SBA; pt holds PT's hand to get into B Tandem and with left foot behind, pt maintains position3 sec and with right foot behind, 10 sec Shaver Fall Scale Copyright Permission PT-OP-J Posture/Palpation/Skin Start: 09/13/23 08:00 Freq: Status: Active Protocol: Document 09/13/23 10:26 MB (Rec: 09/13/23 11:02 MB [id number]) Posture Evaluation Comments Posture Comments Standing posture in socks: forward head, rounded shoulder , increased thoracic kyphosis with convexity to the right, right iliac crest is mildly higher than the left, right inferior angle of scapula mildly higher than the left, increased Mandy angle right greater than left in standing PT-OP-K Range of Motion Start: 09/13/23 08:00 Freq: Status: Active Protocol: Document 09/13/23 10:26 MB (Rec: 09/13/23 11:07 MB [id number]) Knee Goniometric Range of Motion Knee Left Knee ROM WFL No Comments 5-121 in supine Right Knee ROM WFL No Comments 5-113 in supine PT-OP-M Strength Start: 09/13/23 08:00 Freq: Status: Active Protocol: Document 09/13/23 10:26 MB (Rec: 09/13/23 11:07 MB [id number]) Hip Strength Hip Manual Muscle Testing Left Flexion (L2) 4+ Good+ Extension (S1) 4 Good Abduction 4+ Good+ Adduction 4+ Good+ Right Flexion (L2) 4- Good- Extension (S1) 4- Good- Abduction 4- Good- Adduction 4- Good- Comments All MMT in supine Knee Strength Knee Manual Muscle Testing Left Flexion (S2) 4 Good Extension (L3) 5 Normal Right Flexion (S2) 4 Good Extension (L3) 5 Normal Ankle/Foot Strength Ankle and Foot Manual Muscle Testing Bilateral Dorsiflexion (L4) 5 Normal Toe Strength Toe Manual Muscle Testing Left Great Toe Extension 5 Normal Right Great Toe Extension 5 Normal PT-OP-Q Treatments Start: 09/13/23 08:00 Freq: Status: Active Protocol: Document 10/04/23 13:50 SP (Rec: 10/04/23 14:36 SP [id number]) Cardio Equipment Bicycle (Upright) Duration (Minutes) 10 Resistance 3 Seat Position 4 Other 54 RPMs Gait Training Gait Activity trek poles Description trialed for assess if beneficial for longer distance support for endurance Device Used Navin poles Treatment Focus patterning 2 pt gait, Comments challenge to patterning 2 pt then maintain, Mod cues for arm&pole advancement with opposite LE. Pt reports not used to them, uses for outdoor support. 6MWT Device Used 0 Distance/Duration 1078 ft Treatment Focus endurance assess, foot clearance, stride Comments noted R>L foot scuff at times, decrease stride with distance . occasional cues for increase stride heel toe and clearance . Neuro Re-Education Treatment Balance Activities ambulation with visual scanning Equipment near rail Reps/Duration 25 feet X2 Comments SBA ambulation with head turns Details reviewed HEP Reps/Duration 20 ft x2 laps Comments close SBA *finger glide on wall *cued kneep feet away from each other improved lessen lateral lean tandem stepping Reps/Duration 20 ft x2 laps Comments close SBA * finger on wall *cued kneep feet away from each other, tall rhomboid & TA engegement for midline corrections- improves with distance retro stepping Details reviewed HEP Reps/Duration 20 ft x3 laps Comments close SBA *PRN finger glide on wall *cued kneep feet away from each other PT-OP-T Assessment and Plan Start: 09/13/23 08:00 Freq: Status: Active Protocol: Document 10/04/23 13:50 SP (Rec: 10/04/23 14:36 SP [id number]) Physical Therapy Assessment Goals 4 Impairment R LE weakness Group Home Goal (LTG) Pt will present with improved right hip and knee strength comparable to LLE to improve function and gait. LTG Duration 8 weeks 3 Impairment Lack of HEP Gas Line Installer Supervisor Goal (LTG) Pt will perform progressive HEP with I including pelvic realignment exercises, flexibility, strengthening and balance exercises to improve pain, strength and balance. LTG Duration 8 weeks 2 Impairment LEF score 43/80 Group Home Goal (LTG) Pt will present with improved LEF score to reflect no more than 20% impairment to improve pain and function. LTG Duration 8 weeks 1 Impairment Evidence of imbalance Group Home Goal (LTG) Pt will perform WNLs on FGA to decrease fall risk. LTG Duration 8 weeks Progress Towards Goals Progress Comments Assess: 6MWT no AD 1078 ft baseline. Assessment Summary Assessment Pt states doing well with stretches supine & standing and didn't need to review. Continued progression dynamic balance with use of finger glide on wall visual scanning and head turns, improved not need for back walking. Trialed use trek poles for support longer distance gait but challenged patterning 2pt gait , off sequencing at times even with cuing but pt states not used to them. Completed 1078 ft 6 MWT with no AD, pt tires, provided occasional cues for R>L ft longer stride and DF advancement to reduce occaional light scuff noted at times, no LOB. Discussed with head turns and visual scanning can challenge community walking and why trialed use trek poles, unsure if just need more practice, will continue assess in future tx. Physical Therapy Plan Frequency and Duration Frequency of Treatment 1-2x/wk Duration of treatment (weeks) 8 Plan of Care Start Date 09/13/23 Plan of Care End Date 11/13/23 Therapeutic Interventions Therapeutic Interventions Balance Training,Canalithic Repositioning,Gait Training, Home Exercise Program,Joint Mobilizations,Manual Therapy, Neuromuscular Re-education, Patient/Caregiver Education, Self-Care/Home Management,Soft Tissue Mobilization,Taping, Therapeutic Activities, Therapeutic Exercises, Vestibular Rehabilitation Modalities Cold Pack/Ice Massage,Electric Stimulation,Hot Packs, Ultrasound Next Visit Focus/Plan Next Note Type Treatment Note Next Visit Plan Consider [facility] HEP for leg strengthening next tx. Continue use of trek poles for support if pt find beneficial for longer distance gait trails. POC: Con't upright bike for warm-up and added FGA tasks for HEP. Next progress tandem and EC. Future: balance if pt tolerates (pain).
--- NOTE | 2023-10-09 09:41 | PT.OTN ---
Current Diagnoses Pain in right knee (10/09/23) Other abnormalities of gait and mobility (10/09/23) Unspecified abnormalities of gait and mobility (10/09/23) Physical Therapy Treatment Note PT-OP-A Visit Information Start: 09/13/23 08:00 Freq: Status: Active Protocol: Document 10/09/23 09:01 MB (Rec: 10/09/23 09:40 MB [id number]) Out-Patient Physical Therapy Visit Information Visit Information Visit Type Progress Note Visit Note AARP Medicare Visit Start Time 09:01 Visit Stop Time 09:41 Visit Number 7 Number of RESIDENTIAL ROOFER HELPER Visits 0 Evaluation Information Evaluation Date 09/13/23 PT-OP-B Current Condition Start: 09/13/23 08:00 Freq: Status: Active Protocol: Document 09/13/23 10:26 MB (Rec: 09/13/23 10:55 MB [id number]) Current Condition History of Current Condition Onset Date 6 months of right knee pain Current Complaints Right knee pain and light- headedness in the morning, fear of falls History of Current Condition Pt reports low energy and fear of falling, especially early in the day. 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 She does all the chores. She does not have any assistance at home. Her memory is suffering. Pt reports increased right knee pain when working in the yard and with walking a couple of blocks. Any amount of time being on her feet is bothersome. When asked, pt knows she needs to be able to go for walks and do HEP but she cannot state that she will be able to do this given her home chores and caring for her . Pt has to assist her if he falls. She hopes to get him into PT, too. Treatment Goals Patient/Caregiver Goals To get rid of the pain and be able to move more. PT-OP-C Subjective Start: 09/13/23 08:00 Freq: Status: Active Protocol: Document 10/09/23 09:01 MB (Rec: 10/09/23 09:40 MB [id number]) OP-PT Subjective Patient Comments Patient Comments Pt states that she got to do a 2 mile walk with a friend and it went well. She was tired afterwards. PT-OP-D Balance Start: 09/13/23 15:30 Freq: Status: Active Protocol: Document 09/13/23 10:26 MB (Rec: 09/13/23 15:33 MB [id number]) OP-PT Balance Assessment Standing Balance Standing Balance Comments Romberg with increased sway and SBA; pt holds PT's hand to get into B Tandem and with left foot behind, pt maintains position3 sec and with right foot behind, 10 sec Shaver Fall Scale Copyright Permission PT-OP-J Posture/Palpation/Skin Start: 09/13/23 08:00 Freq: Status: Active Protocol: Document 09/13/23 10:26 MB (Rec: 09/13/23 11:02 MB [id number]) Posture Evaluation Comments Posture Comments Standing posture in socks: forward head, rounded shoulder , increased thoracic kyphosis with convexity to the right, right iliac crest is mildly higher than the left, right inferior angle of scapula mildly higher than the left, increased Mandy angle right greater than left in standing PT-OP-K Range of Motion Start: 09/13/23 08:00 Freq: Status: Active Protocol: Document 09/13/23 10:26 MB (Rec: 09/13/23 11:07 MB [id number]) Knee Goniometric Range of Motion Knee Left Knee ROM WFL No Comments 5-121 in supine Right Knee ROM WFL No Comments 5-113 in supine PT-OP-M Strength Start: 09/13/23 08:00 Freq: Status: Active Protocol: Document 09/13/23 10:26 MB (Rec: 09/13/23 11:07 MB [id number]) Hip Strength Hip Manual Muscle Testing Left Flexion (L2) 4+ Good+ Extension (S1) 4 Good Abduction 4+ Good+ Adduction 4+ Good+ Right Flexion (L2) 4- Good- Extension (S1) 4- Good- Abduction 4- Good- Adduction 4- Good- Comments All MMT in supine Knee Strength Knee Manual Muscle Testing Left Flexion (S2) 4 Good Extension (L3) 5 Normal Right Flexion (S2) 4 Good Extension (L3) 5 Normal Ankle/Foot Strength Ankle and Foot Manual Muscle Testing Bilateral Dorsiflexion (L4) 5 Normal Toe Strength Toe Manual Muscle Testing Left Great Toe Extension 5 Normal Right Great Toe Extension 5 Normal PT-OP-Q Treatments Start: 09/13/23 08:00 Freq: Status: Active Protocol: Document 10/09/23 09:01 MB (Rec: 10/09/23 09:40 MB [id number]) Cardio Equipment Bicycle (Upright) Duration (Minutes) 11 Resistance 6 Therapeutic Exercises Supine Exercises figure 4 with knee to chest mvt Comments Re-ed today and performed a couple of reps and used towel Royer stretch Comments Towel under opposite leg, performed one rep each leg Other Exercises HEP review and MMT Comments Performed on progress note and see goals for details Neuro Re-Education Treatment Balance Activities FGA Comments Performed today and score 15/ 30 with biggest challenges with EC, backwards walking and tandem PT-OP-T Assessment and Plan Start: 09/13/23 08:00 Freq: Status: Active Protocol: Document 10/09/23 09:01 MB (Rec: 10/09/23 09:40 MB [id number]) Physical Therapy Assessment Goals 4 Impairment R LE weakness [facility] Goal (LTG) Pt will present with improved right hip and knee strength comparable to LLE to improve function and gait. 10/09/23: Right LE: hip flexion : 4+/5, abduction 4+/5; knee flexion: 4-/5, extension 4+/5; left LE: hip flexion and abduction 4/5 and knee flexion and extension 4/5. RLE strength surpasses the left today LTG Duration Surpassed goal 3 Impairment Lack of HEP Motion Study Engineer Goal (LTG) Pt will perform progressive HEP with I including pelvic realignment exercises, flexibility, strengthening and balance exercises to improve pain, strength and balance. 10/09/23: Pt is trying to get through exercises and she is doing a part of them at night when she goes to bed LTG Duration 8 weeks 2 Impairment LEF score 43/80 [facility] Goal (LTG) Pt will present with improved LEF score to reflect no more than 20% impairment to improve pain and function. 10/09/23: LEF score is 55/80, much improved, and indicates 31.25% impairment LTG Duration 8 weeks 1 Impairment Evidence of imbalance [facility]ci Goal (LTG) Pt will perform WNLs on FGA to decrease fall risk. 10/09/23: FGA score is 15/30, reflecting increased fall risk LTG Duration 8 weeks Assessment Summary Assessment Pt is progressing towards PT goals. Re-ed pt in importance of hydration and considering water before cup of coffee in the a.m. RLE strength is much better and balance is biggest challenge today. Con't per plan below. Physical Therapy Plan Frequency and Duration Frequency of Treatment 1-2x/wk Duration of treatment (weeks) 8 Plan of Care Start Date 09/13/23 Plan of Care End Date 11/13/23 Therapeutic Interventions Therapeutic Interventions Balance Training,Canalithic Repositioning,Gait Training, Home Exercise Program,Joint Mobilizations,Manual Therapy, Neuromuscular Re-education, Patient/Caregiver Education, Self-Care/Home Management,Soft Tissue Mobilization,Taping, Therapeutic Activities, Therapeutic Exercises, Vestibular Rehabilitation Modalities Cold Pack/Ice Massage,Electric Stimulation,Hot Packs, Ultrasound Next Visit Focus/Plan Next Note Type Treatment Note Next Visit Plan Upright bike, review exercises as needed, consider [place] exercises, progress tandem and EC, further balance exercises
--- NOTE | 2023-10-11 15:19 | PT.OTN ---
Current Diagnoses Pain in right knee (10/11/23) Other abnormalities of gait and mobility (10/11/23) Unspecified abnormalities of gait and mobility (10/11/23) Physical Therapy Treatment Note PT-OP-A Visit Information Start: 09/13/23 08:00 Freq: Status: Active Protocol: Document 10/11/23 14:33 MB (Rec: 10/11/23 15:19 MB [id number]) Out-Patient Physical Therapy Visit Information Visit Information Visit Type Treatment Note Visit Note AARP Medicare Visit Start Time 14:33 Visit Stop Time 15:13 Visit Number 8 Number of SIEVE GRADER TENDER Visits 0 Evaluation Information Evaluation Date 09/13/23 PT-OP-B Current Condition Start: 09/13/23 08:00 Freq: Status: Active Protocol: Document 09/13/23 10:26 MB (Rec: 09/13/23 10:55 MB [id number]) Current Condition History of Current Condition Onset Date 6 months of right knee pain Current Complaints Right knee pain and light- headedness in the morning, fear of falls History of Current Condition Pt reports low energy and fear of falling, especially early in the day. 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 She does all the chores. She does not have any assistance at home. Her memory is suffering. Pt reports increased right knee pain when working in the yard and with walking a couple of blocks. Any amount of time being on her feet is bothersome. When asked, pt knows she needs to be able to go for walks and do HEP but she cannot state that she will be able to do this given her home chores and caring for her . Pt has to assist her if he falls. She hopes to get him into PT, too. Treatment Goals Patient/Caregiver Goals To get rid of the pain and be able to move more. PT-OP-C Subjective Start: 09/13/23 08:00 Freq: Status: Active Protocol: Document 10/11/23 14:33 MB (Rec: 10/11/23 15:19 MB [id number]) OP-PT Subjective Patient Comments Patient Comments Pt states that she is tired after walking with her on [place] today. Pt's pain is mild. PT-OP-D Balance Start: 09/13/23 15:30 Freq: Status: Active Protocol: Document 09/13/23 10:26 MB (Rec: 09/13/23 15:33 MB [id number]) OP-PT Balance Assessment Standing Balance Standing Balance Comments Romberg with increased sway and SBA; pt holds PT's hand to get into B Tandem and with left foot behind, pt maintains position3 sec and with right foot behind, 10 sec Shaver Fall Scale Copyright Permission PT-OP-J Posture/Palpation/Skin Start: 09/13/23 08:00 Freq: Status: Active Protocol: Document 09/13/23 10:26 MB (Rec: 09/13/23 11:02 MB [id number]) Posture Evaluation Comments Posture Comments Standing posture in socks: forward head, rounded shoulder , increased thoracic kyphosis with convexity to the right, right iliac crest is mildly higher than the left, right inferior angle of scapula mildly higher than the left, increased Mandy angle right greater than left in standing PT-OP-K Range of Motion Start: 09/13/23 08:00 Freq: Status: Active Protocol: Document 09/13/23 10:26 MB (Rec: 09/13/23 11:07 MB [id number]) Knee Goniometric Range of Motion Knee Left Knee ROM WFL No Comments 5-121 in supine Right Knee ROM WFL No Comments 5-113 in supine PT-OP-M Strength Start: 09/13/23 08:00 Freq: Status: Active Protocol: Document 09/13/23 10:26 MB (Rec: 09/13/23 11:07 MB [id number]) Hip Strength Hip Manual Muscle Testing Left Flexion (L2) 4+ Good+ Extension (S1) 4 Good Abduction 4+ Good+ Adduction 4+ Good+ Right Flexion (L2) 4- Good- Extension (S1) 4- Good- Abduction 4- Good- Adduction 4- Good- Comments All MMT in supine Knee Strength Knee Manual Muscle Testing Left Flexion (S2) 4 Good Extension (L3) 5 Normal Right Flexion (S2) 4 Good Extension (L3) 5 Normal Ankle/Foot Strength Ankle and Foot Manual Muscle Testing Bilateral Dorsiflexion (L4) 5 Normal Toe Strength Toe Manual Muscle Testing Left Great Toe Extension 5 Normal Right Great Toe Extension 5 Normal PT-OP-Q Treatments Start: 09/13/23 08:00 Freq: Status: Active Protocol: Document 10/11/23 14:33 MB (Rec: 10/11/23 15:19 MB [id number]) Cardio Equipment Bicycle (Upright) Duration (Minutes) 5 Resistance 6 Other 1-2 Therapeutic Exercises Sitting Exercises [place] LAQs with ankle weights Equipment Used 2 lb ankle weights Reps/Minutes 2 sets of 30 reps Comments Alternating Standing Exercises [place] heel raises Equipment Used 2 lb ankle weights Reps/Minutes 30 reps [place] hamstring curl Equipment Used 2 lb ankle weights Reps/Minutes 1 sets of 30 reps Comments Alternating [place] hip abduction Equipment Used 2 lb ankle weights Reps/Minutes 2 sets of 30 reps Comments Alternating PT-OP-T Assessment and Plan Start: 09/13/23 08:00 Freq: Status: Active Protocol: Document 10/11/23 14:33 MB (Rec: 10/11/23 15:19 MB [id number]) Physical Therapy Assessment Goals 4 Impairment R LE weakness Builder'S Labourer Goal (LTG) Pt will present with improved right hip and knee strength comparable to LLE to improve function and gait. 10/09/23: Right LE: hip flexion : 4+/5, abduction 4+/5; knee flexion: 4-/5, extension 4+/5; left LE: hip flexion and abduction 4/5 and knee flexion and extension 4/5. RLE strength surpasses the left today LTG Duration Surpassed goal 3 Impairment Lack of HEP Care Home Goal (LTG) Pt will perform progressive HEP with I including pelvic realignment exercises, flexibility, strengthening and balance exercises to improve pain, strength and balance. 10/09/23: Pt is trying to get through exercises and she is doing a part of them at night when she goes to bed LTG Duration 8 weeks 2 Impairment LEF score 43/80 Builder'S Labourer Goal (LTG) Pt will present with improved LEF score to reflect no more than 20% impairment to improve pain and function. 10/09/23: LEF score is 55/80, much improved, and indicates 31.25% impairment LTG Duration 8 weeks 1 Impairment Evidence of imbalance Care Home Goal (LTG) Pt will perform WNLs on FGA to decrease fall risk. 10/09/23: FGA score is 15/30, reflecting increased fall risk LTG Duration 8 weeks Assessment Summary Assessment Pt requires increased time for [place] explanation, review and practice today d/t some hearing and understanding challenges. She will benefit from ongoing review of exercises taught and anticipate only completing [place] and adding hip extension and ankle exercises to HEP d/ t time constraints, understanding, etc. Did ed pt about getting ankle weights today. Physical Therapy Plan Frequency and Duration Frequency of Treatment 1-2x/wk Duration of treatment (weeks) 8 Plan of Care Start Date 09/13/23 Plan of Care End Date 11/13/23 Therapeutic Interventions Therapeutic Interventions Balance Training,Canalithic Repositioning,Gait Training, Home Exercise Program,Joint Mobilizations,Manual Therapy, Neuromuscular Re-education, Patient/Caregiver Education, Self-Care/Home Management,Soft Tissue Mobilization,Taping, Therapeutic Activities, Therapeutic Exercises, Vestibular Rehabilitation Modalities Cold Pack/Ice Massage,Electric Stimulation,Hot Packs, Ultrasound Next Visit Focus/Plan Next Note Type Treatment Note Next Visit Plan Upright bike, review [place] exercises performed and then progress balance exercises, also add hip extension with ankle weights in standing and ankle DF with ER in standing
--- NOTE | 2023-10-18 10:33 | PT.OTN ---
Current Diagnoses Pain in right knee (10/18/23) Other abnormalities of gait and mobility (10/18/23) Unspecified abnormalities of gait and mobility (10/18/23) Physical Therapy Treatment Note PT-OP-A Visit Information Start: 09/13/23 08:00 Freq: Status: Active Protocol: Document 10/18/23 09:49 SP (Rec: 10/18/23 10:36 SP [id number]) Out-Patient Physical Therapy Visit Information Visit Information Visit Type Treatment Note Visit Note AARP Medicare 05/06 post PN Visit Start Time 09:49 Visit Stop Time 10:33 Visit Number 9 Number of PHOTOGRAPHY EDITOR Visits 1 Evaluation Information Evaluation Date 09/13/23 PT-OP-B Current Condition Start: 09/13/23 08:00 Freq: Status: Active Protocol: Document 09/13/23 10:26 MB (Rec: 09/13/23 10:55 MB [id number]) Current Condition History of Current Condition Onset Date 6 months of right knee pain Current Complaints Right knee pain and light- headedness in the morning, fear of falls History of Current Condition Pt reports low energy and fear of falling, especially early in the day. 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 She does all the chores. She does not have any assistance at home. Her memory is suffering. Pt reports increased right knee pain when working in the yard and with walking a couple of blocks. Any amount of time being on her feet is bothersome. When asked, pt knows she needs to be able to go for walks and do HEP but she cannot state that she will be able to do this given her home chores and caring for her . Pt has to assist her if he falls. She hopes to get him into PT, too. Treatment Goals Patient/Caregiver Goals To get rid of the pain and be able to move more. PT-OP-C Subjective Start: 09/13/23 08:00 Freq: Status: Active Protocol: Document 10/18/23 09:49 SP (Rec: 10/18/23 10:36 SP [id number]) OP-PT Subjective Patient Comments Patient Comments Pt reported has been incorporating the [place] exercises added so far and tiring but see a difference. PT-OP-D Balance Start: 09/13/23 15:30 Freq: Status: Active Protocol: Document 09/13/23 10:26 MB (Rec: 09/13/23 15:33 MB [id number]) OP-PT Balance Assessment Standing Balance Standing Balance Comments Romberg with increased sway and SBA; pt holds PT's hand to get into B Tandem and with left foot behind, pt maintains position3 sec and with right foot behind, 10 sec Shaver Fall Scale Copyright Permission PT-OP-J Posture/Palpation/Skin Start: 09/13/23 08:00 Freq: Status: Active Protocol: Document 09/13/23 10:26 MB (Rec: 09/13/23 11:02 MB [id number]) Posture Evaluation Comments Posture Comments Standing posture in socks: forward head, rounded shoulder , increased thoracic kyphosis with convexity to the right, right iliac crest is mildly higher than the left, right inferior angle of scapula mildly higher than the left, increased Mandy angle right greater than left in standing PT-OP-K Range of Motion Start: 09/13/23 08:00 Freq: Status: Active Protocol: Document 09/13/23 10:26 MB (Rec: 09/13/23 11:07 MB [id number]) Knee Goniometric Range of Motion Knee Left Knee ROM WFL No Comments 5-121 in supine Right Knee ROM WFL No Comments 5-113 in supine PT-OP-M Strength Start: 09/13/23 08:00 Freq: Status: Active Protocol: Document 09/13/23 10:26 MB (Rec: 09/13/23 11:07 MB [id number]) Hip Strength Hip Manual Muscle Testing Left Flexion (L2) 4+ Good+ Extension (S1) 4 Good Abduction 4+ Good+ Adduction 4+ Good+ Right Flexion (L2) 4- Good- Extension (S1) 4- Good- Abduction 4- Good- Adduction 4- Good- Comments All MMT in supine Knee Strength Knee Manual Muscle Testing Left Flexion (S2) 4 Good Extension (L3) 5 Normal Right Flexion (S2) 4 Good Extension (L3) 5 Normal Ankle/Foot Strength Ankle and Foot Manual Muscle Testing Bilateral Dorsiflexion (L4) 5 Normal Toe Strength Toe Manual Muscle Testing Left Great Toe Extension 5 Normal Right Great Toe Extension 5 Normal PT-OP-Q Treatments Start: 09/13/23 08:00 Freq: Status: Active Protocol: Document 10/18/23 09:49 SP (Rec: 10/18/23 10:36 SP [id number]) Cardio Equipment Bicycle (Upright) Duration (Minutes) 6 Resistance 6 Seat Position 6 Other cued 40-45 RPMs Therapeutic Exercises Sitting Exercises [place] sit to stands Sitting Exercise Name added to HEP Equipment Used arms across chest Reps/Minutes x10 reps Comments cued feet back, hip hinge descend- improved Stretching Sitting Exercise Name HS Side bilateral Reps/Minutes 30 sec x2 each Comments post bike due legs feel tight [place] LAQs with ankle weights Equipment Used 2 lb ankle weights Reps/Minutes 2 sets of 30 reps Comments Alternating Standing Exercises Hip Extension Standing Exercise Name trialed in PT Side bilateral Equipment Used 2 lb ankle weights Reps/Minutes 1 set 30 reps Comments alternating [place] heel raises Equipment Used 2 lb ankle weights Reps/Minutes 2x 30 reps [place] hamstring curl Equipment Used 2 lb ankle weights Reps/Minutes 2 sets of 30 reps Comments Alternating [place] hip abduction Equipment Used 2 lb ankle weights Reps/Minutes 2 sets of 30 reps Comments Alternating Neuro Re-Education Treatment Balance Activities tandem stance Details added to HEP Comments R ft fwd 20 sec L ft fwd 3, 20 sec Discussed goal toward 60 sec. PT-OP-T Assessment and Plan Start: 09/13/23 08:00 Freq: Status: Active Protocol: Document 10/18/23 09:49 SP (Rec: 10/18/23 10:36 SP [id number]) Physical Therapy Assessment Goals 4 Impairment R LE weakness Striper Goal (LTG) Pt will present with improved right hip and knee strength comparable to LLE to improve function and gait. 10/09/23: Right LE: hip flexion : 4+/5, abduction 4+/5; knee flexion: 4-/5, extension 4+/5; left LE: hip flexion and abduction 4/5 and knee flexion and extension 4/5. RLE strength surpasses the left today LTG Duration Surpassed goal 3 Impairment Lack of HEP Striper Goal (LTG) Pt will perform progressive HEP with I including pelvic realignment exercises, flexibility, strengthening and balance exercises to improve pain, strength and balance. 10/09/23: Pt is trying to get through exercises and she is doing a part of them at night when she goes to bed LTG Duration 8 weeks 2 Impairment LEF score 43/80 Residential Goal (LTG) Pt will present with improved LEF score to reflect no more than 20% impairment to improve pain and function. 10/09/23: LEF score is 55/80, much improved, and indicates 31.25% impairment LTG Duration 8 weeks 1 Impairment Evidence of imbalance Striper Goal (LTG) Pt will perform WNLs on FGA to decrease fall risk. 10/09/23: FGA score is 15/30, reflecting increased fall risk LTG Duration 8 weeks Assessment Summary Assessment Pt good effort with addition of resisted sets and additional on her handout to continue at home. Improved static standing time with cues for postural alignment and balance over COG end tx. Physical Therapy Plan Frequency and Duration Frequency of Treatment 1-2x/wk Duration of treatment (weeks) 8 Plan of Care Start Date 09/13/23 Plan of Care End Date 11/13/23 Therapeutic Interventions Therapeutic Interventions Balance Training,Canalithic Repositioning,Gait Training, Home Exercise Program,Joint Mobilizations,Manual Therapy, Neuromuscular Re-education, Patient/Caregiver Education, Self-Care/Home Management,Soft Tissue Mobilization,Taping, Therapeutic Activities, Therapeutic Exercises, Vestibular Rehabilitation Modalities Cold Pack/Ice Massage,Electric Stimulation,Hot Packs, Ultrasound Next Visit Focus/Plan Next Note Type Treatment Note Next Visit Plan Review next tx: added sit stands and tandem stance for HEP, on HO. Upright bike, review [place] exercises performed and then progress balance exercises, also add hip extension with ankle weights in standing and ankle DF with ER in standing
--- NOTE | 2023-10-20 12:00 | PT.OTN ---
Current Diagnoses Pain in right knee (10/20/23) Other abnormalities of gait and mobility (10/20/23) Unspecified abnormalities of gait and mobility (10/20/23) Physical Therapy Treatment Note PT-OP-A Visit Information Start: 09/13/23 08:00 Freq: Status: Active Protocol: Document 10/20/23 11:20 SP (Rec: 10/20/23 12:10 SP [id number]) Out-Patient Physical Therapy Visit Information Visit Information Visit Type Treatment Note Visit Note AARP Medicare 06/03 post PN Visit Start Time 11:20 Visit Stop Time 12:00 Visit Number 10 Number of SOLAR SALES MANAGER Visits 2 Evaluation Information Evaluation Date 09/13/23 PT-OP-B Current Condition Start: 09/13/23 08:00 Freq: Status: Active Protocol: Document 09/13/23 10:26 MB (Rec: 09/13/23 10:55 MB [id number]) Current Condition History of Current Condition Onset Date 6 months of right knee pain Current Complaints Right knee pain and light- headedness in the morning, fear of falls History of Current Condition Pt reports low energy and fear of falling, especially early in the day. 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 She does all the chores. She does not have any assistance at home. Her memory is suffering. Pt reports increased right knee pain when working in the yard and with walking a couple of blocks. Any amount of time being on her feet is bothersome. When asked, pt knows she needs to be able to go for walks and do HEP but she cannot state that she will be able to do this given her home chores and caring for her . Pt has to assist her if he falls. She hopes to get him into PT, too. Treatment Goals Patient/Caregiver Goals To get rid of the pain and be able to move more. PT-OP-C Subjective Start: 09/13/23 08:00 Freq: Status: Active Protocol: Document 10/20/23 11:20 SP (Rec: 10/20/23 12:10 SP [id number]) OP-PT Subjective Patient Comments Patient Comments Pt reported PT-OP-D Balance Start: 09/13/23 15:30 Freq: Status: Active Protocol: Document 09/13/23 10:26 MB (Rec: 06/19/24 15:33 MB [id number]) OP-PT Balance Assessment Standing Balance Standing Balance Comments Romberg with increased sway and SBA; pt holds PT's hand to get into B Tandem and with left foot behind, pt maintains position3 sec and with right foot behind, 10 sec Shaver Fall Scale Copyright Permission PT-OP-J Posture/Palpation/Skin Start: 09/13/23 08:00 Freq: Status: Active Protocol: Document 09/13/23 10:26 MB (Rec: 09/13/23 11:02 MB [id number]) Posture Evaluation Comments Posture Comments Standing posture in socks: forward head, rounded shoulder , increased thoracic kyphosis with convexity to the right, right iliac crest is mildly higher than the left, right inferior angle of scapula mildly higher than the left, increased Mandy angle right greater than left in standing PT-OP-K Range of Motion Start: 09/13/23 08:00 Freq: Status: Active Protocol: Document 09/13/23 10:26 MB (Rec: 09/13/23 11:07 MB [id number]) Knee Goniometric Range of Motion Knee Left Knee ROM WFL No Comments 5-121 in supine Right Knee ROM WFL No Comments 5-113 in supine PT-OP-M Strength Start: 09/13/23 08:00 Freq: Status: Active Protocol: Document 09/13/23 10:26 MB (Rec: 09/13/23 11:07 MB [id number]) Hip Strength Hip Manual Muscle Testing Left Flexion (L2) 4+ Good+ Extension (S1) 4 Good Abduction 4+ Good+ Adduction 4+ Good+ Right Flexion (L2) 4- Good- Extension (S1) 4- Good- Abduction 4- Good- Adduction 4- Good- Comments All MMT in supine Knee Strength Knee Manual Muscle Testing Left Flexion (S2) 4 Good Extension (L3) 5 Normal Right Flexion (S2) 4 Good Extension (L3) 5 Normal Ankle/Foot Strength Ankle and Foot Manual Muscle Testing Bilateral Dorsiflexion (L4) 5 Normal Toe Strength Toe Manual Muscle Testing Left Great Toe Extension 5 Normal Right Great Toe Extension 5 Normal PT-OP-Q Treatments Start: 09/13/23 08:00 Freq: Status: Active Protocol: Document 10/20/23 11:20 SP (Rec: 10/20/23 12:10 SP [id number]) Therapeutic Exercises Sitting Exercises [place] sit to stands Equipment Used arms across chest Reps/Minutes x10 reps Comments cued feet back, hip hinge descend- improved [place] LAQs with ankle weights Side bilateral Equipment Used 2 lb ankle weights (used blue like in [place]) Reps/Minutes 2 sets of 30 reps Comments Alternating Standing Exercises Hip Extension Side bilateral Resistance 2 lb ankle weights Reps/Minutes x15 each side Comments no alternating [place] heel raises Equipment Used 2 lb ankle weights Reps/Minutes 30 reps Comments rail support [place] hamstring curl Equipment Used 2 lb ankle weights Reps/Minutes 2 sets of 30 reps Comments Alternating [place] hip abduction Side bilateral Equipment Used 2 lb ankle weights Reps/Minutes 2 sets of 30 reps Comments Alternating Neuro Re-Education Treatment Balance Activities SLS Comments RLE 2, 10 sec LLE 7 sec - ed tall posture, rhomboid & core & glut fac. tandem stance Equipment near rail Comments R ft fwd 30 sec L ft fwd 30 sec Discussed goal toward 60 sec. PT-OP-T Assessment and Plan Start: 09/13/23 08:00 Freq: Status: Active Protocol: Document 10/20/23 11:20 SP (Rec: 10/20/23 12:10 SP [id number]) Physical Therapy Assessment Goals 4 Impairment R LE weakness Repairer Maintenance Building Goal (LTG) Pt will present with improved right hip and knee strength comparable to LLE to improve function and gait. 10/09/23: Right LE: hip flexion : 4+/5, abduction 4+/5; knee flexion: 4-/5, extension 4+/5; left LE: hip flexion and abduction 4/5 and knee flexion and extension 4/5. RLE strength surpasses the left today LTG Duration Surpassed goal 3 Impairment Lack of HEP Repairer Maintenance Building Goal (LTG) Pt will perform progressive HEP with I including pelvic realignment exercises, flexibility, strengthening and balance exercises to improve pain, strength and balance. 10/09/23: Pt is trying to get through exercises and she is doing a part of them at night when she goes to bed LTG Duration 8 weeks 2 Impairment LEF score 43/80 Senior Living Goal (LTG) Pt will present with improved LEF score to reflect no more than 20% impairment to improve pain and function. 10/09/23: LEF score is 55/80, much improved, and indicates 31.25% impairment LTG Duration 8 weeks 1 Impairment Evidence of imbalance Senior Living Goal (LTG) Pt will perform WNLs on FGA to decrease fall risk. 10/09/23: FGA score is 15/30, reflecting increased fall risk LTG Duration 8 weeks Assessment Summary Assessment Pt reports good muscle tiring during ther ex with increased sets, requires handout support for recall and set up. Improved static balance timing 2nd vs 1st set after cues for tall posture, rhomboid and core fac trunk over stance. Pt plans to sign up for Otago class Oct 31. Physical Therapy Plan Frequency and Duration Frequency of Treatment 1-2x/wk Duration of treatment (weeks) 8 Plan of Care Start Date 09/13/23 Plan of Care End Date 11/13/23 Therapeutic Interventions Therapeutic Interventions Balance Training,Canalithic Repositioning,Gait Training, Home Exercise Program,Joint Mobilizations,Manual Therapy, Neuromuscular Re-education, Patient/Caregiver Education, Self-Care/Home Management,Soft Tissue Mobilization,Taping, Therapeutic Activities, Therapeutic Exercises, Vestibular Rehabilitation Modalities Cold Pack/Ice Massage,Electric Stimulation,Hot Packs, Ultrasound Next Visit Focus/Plan Next Note Type Treatment Note Next Visit Plan Review next tx: added [place] SLS. Upright bike warm up, REview [place] ex as needed, add ankle DF with ER in standing and progress balance exercises.
--- NOTE | 2023-10-24 08:12 | PT.OTN ---
Current Diagnoses Pain in right knee (10/24/23) Other abnormalities of gait and mobility (10/24/23) Unspecified abnormalities of gait and mobility (10/24/23) Physical Therapy Treatment Note PT-OP-A Visit Information Start: 09/13/23 08:00 Freq: Status: Active Protocol: Document 10/24/23 07:32 MB (Rec: 10/24/23 08:09 MB [id number]) Out-Patient Physical Therapy Visit Information Visit Information Visit Type Treatment Note Visit Note [facility] Medicare Progress note by 11/08 Visit Start Time 07:32 Visit Stop Time 08:12 Visit Number 11 Number of ARCHITECTURAL WOOD MODEL MAKER Visits 0 Evaluation Information Evaluation Date 09/13/23 PT-OP-B Current Condition Start: 09/13/23 08:00 Freq: Status: Active Protocol: Document 09/13/23 10:26 MB (Rec: 09/13/23 10:55 MB [id number]) Current Condition History of Current Condition Onset Date 6 months of right knee pain Current Complaints Right knee pain and light- headedness in the morning, fear of falls History of Current Condition Pt reports low energy and fear of falling, especially early in the day. 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 She does all the chores. She does not have any assistance at home. Her memory is suffering. Pt reports increased right knee pain when working in the yard and with walking a couple of blocks. Any amount of time being on her feet is bothersome. When asked, pt knows she needs to be able to go for walks and do HEP but she cannot state that she will be able to do this given her home chores and caring for her . Pt has to assist her if he falls. She hopes to get him into PT, too. Treatment Goals Patient/Caregiver Goals To get rid of the pain and be able to move more. PT-OP-C Subjective Start: 09/13/23 08:00 Freq: Status: Active Protocol: Document 10/24/23 07:32 MB (Rec: 10/24/23 08:09 MB [id number]) OP-PT Subjective Patient Comments Patient Comments Pt states that her right knee has been really bothering her over the past 2-3 days. Pt limps into the clinic. She cannot state anything that happened but states that she has been going hard with appointments and did a long and early ride to [employer] with . Pt also c/o right shoulder pain. Unsure if change in weather is affecting her. PT-OP-D Balance Start: 09/13/23 15:30 Freq: Status: Active Protocol: Document 09/13/23 10:26 MB (Rec: 09/13/23 15:33 MB [id number]) OP-PT Balance Assessment Standing Balance Standing Balance Comments Romberg with increased sway and SBA; pt holds PT's hand to get into B Tandem and with left foot behind, pt maintains position3 sec and with right foot behind, 10 sec Shaver Fall Scale Copyright Permission PT-OP-J Posture/Palpation/Skin Start: 09/13/23 08:00 Freq: Status: Active Protocol: Document 09/13/23 10:26 MB (Rec: 09/13/23 11:02 MB [id number]) Posture Evaluation Comments Posture Comments Standing posture in socks: forward head, rounded shoulder , increased thoracic kyphosis with convexity to the right, right iliac crest is mildly higher than the left, right inferior angle of scapula mildly higher than the left, increased Mandy angle right greater than left in standing PT-OP-K Range of Motion Start: 09/13/23 08:00 Freq: Status: Active Protocol: Document 09/13/23 10:26 MB (Rec: 09/13/23 11:07 MB [id number]) Knee Goniometric Range of Motion Knee Left Knee ROM WFL No Comments 5-121 in supine Right Knee ROM WFL No Comments 5-113 in supine PT-OP-M Strength Start: 09/13/23 08:00 Freq: Status: Active Protocol: Document 09/13/23 10:26 MB (Rec: 09/13/23 11:07 MB [id number]) Hip Strength Hip Manual Muscle Testing Left Flexion (L2) 4+ Good+ Extension (S1) 4 Good Abduction 4+ Good+ Adduction 4+ Good+ Right Flexion (L2) 4- Good- Extension (S1) 4- Good- Abduction 4- Good- Adduction 4- Good- Comments All MMT in supine Knee Strength Knee Manual Muscle Testing Left Flexion (S2) 4 Good Extension (L3) 5 Normal Right Flexion (S2) 4 Good Extension (L3) 5 Normal Ankle/Foot Strength Ankle and Foot Manual Muscle Testing Bilateral Dorsiflexion (L4) 5 Normal Toe Strength Toe Manual Muscle Testing Left Great Toe Extension 5 Normal Right Great Toe Extension 5 Normal PT-OP-Q Treatments Start: 09/13/23 08:00 Freq: Status: Active Protocol: Document 10/24/23 07:32 MB (Rec: 10/24/23 08:09 MB [id number]) Cardio Equipment Bicycle (Upright) Duration (Minutes) 10 Resistance 2 Seat Position 6 Therapeutic Exercises Supine Exercises figure 4 with knee to chest mvt Side bilateral Reps/Minutes 1 rep, up to 1' hold Royer stretch Side bilateral Equipment Used Towel behind leg Reps/Minutes 1 rep,30-45 sec hold Hamstring stretch with AP MWM Side bilateral Equipment Used Towel behind leg Reps/Minutes 1 rep, 45 sec hold to 20-30 APs Pelvic realignment exercises Side bilateral Equipment Used Ball, towel behind leg 3rd exercise Reps/Minutes 5 reps, 3 sec hold all exercises in order Comments Feet together ball squeeze, knee opp ankle iso, thigh press down iso Standing Exercises PF stretches and recovery toe raises Side bilateral Reps/Minutes 1 rep gastroc and soleus stretches Comments 10 toe raises Manual Therapy Treatment Consent Patient gave verbal consent for manual Yes treatment Other Other Manual Treatments Pt supine with head and legs supported: increased tension and STM right vastuas lateralis, medial hamstring and PFs PT-OP-T Assessment and Plan Start: 09/13/23 08:00 Freq: Status: Active Protocol: Document 10/24/23 07:32 MB (Rec: 10/24/23 08:09 [id number]) Physical Therapy Assessment Goals 4 Impairment R LE weakness Aws Software Development Engineer Goal (LTG) Pt will present with improved right hip and knee strength comparable to LLE to improve function and gait. 10/09/23: Right LE: hip flexion : 4+/5, abduction 4+/5; knee flexion: 4-/5, extension 4+/5; left LE: hip flexion and abduction 4/5 and knee flexion and extension 4/5. RLE strength surpasses the left today LTG Duration Surpassed goal 3 Impairment Lack of HEP Aws Software Development Engineer Goal (LTG) Pt will perform progressive HEP with I including pelvic realignment exercises, flexibility, strengthening and balance exercises to improve pain, strength and balance. 10/09/23: Pt is trying to get through exercises and she is doing a part of them at night when she goes to bed LTG Duration 8 weeks 2 Impairment LEF score 43/80 Prison Goal (LTG) Pt will present with improved LEF score to reflect no more than 20% impairment to improve pain and function. 10/09/23: LEF score is 55/80, much improved, and indicates 31.25% impairment LTG Duration 8 weeks 1 Impairment Evidence of imbalance Prison Goal (LTG) Pt will perform WNLs on FGA to decrease fall risk. 10/09/23: FGA score is 15/30, reflecting increased fall risk LTG Duration 8 weeks Assessment Summary Assessment Pt con't to have memory challenges and cannot remember when [place] start date is despite it being written on her handouts in the folder she brings in today. Pt is a poor historian and so unsure what caused her increased right knee symptoms. It is possible arthritis and ed pt to stop any exercise that increases pain: focus on gentle stretching if she cannot tolerate anything else and pelvic realignment exercises and walking. Re-ed in use of ice and heat. Anticipate only need for a few more exercises to do at home per plan below and review. Con't exercise review for practice today. Physical Therapy Plan Frequency and Duration Frequency of Treatment 1-2x/wk Duration of treatment (weeks) 8 Plan of Care Start Date 09/13/23 Plan of Care End Date 11/13/23 Therapeutic Interventions Therapeutic Interventions Balance Training,Canalithic Repositioning,Gait Training, Home Exercise Program,Joint Mobilizations,Manual Therapy, Neuromuscular Re-education, Patient/Caregiver Education, Self-Care/Home Management,Soft Tissue Mobilization,Taping, Therapeutic Activities, Therapeutic Exercises, Vestibular Rehabilitation Modalities Cold Pack/Ice Massage,Electric Stimulation,Hot Packs, Ultrasound Next Visit Focus/Plan Next Note Type Treatment Note Next Visit Plan Upright bike warm up, Review [place] and other ex as needed, add ankle DF with ER in standing and review SLS. Gentle manual work.
--- NOTE | 2023-10-26 10:30 | PT.OTN ---
Current Diagnoses Pain in right knee (10/26/23) Other abnormalities of gait and mobility (10/26/23) Unspecified abnormalities of gait and mobility (10/26/23) Physical Therapy Treatment Note PT-OP-A Visit Information Start: 09/13/23 08:00 Freq: Status: Active Protocol: Document 10/26/23 09:50 SP (Rec: 10/26/23 10:48 SP [id number]) Out-Patient Physical Therapy Visit Information Visit Information Visit Type Treatment Note Visit Note [facility] Medicare Progress note by 11/08 Visit Start Time 09:50 Visit Stop Time 10:30 Visit Number 12 Number of INSTRUMENT [employer] Visits 1 Evaluation Information Evaluation Date 09/13/23 PT-OP-B Current Condition Start: 09/13/23 08:00 Freq: Status: Active Protocol: Document 09/13/23 10:26 MB (Rec: 09/13/23 10:55 MB [id number]) Current Condition History of Current Condition Onset Date 6 months of right knee pain Current Complaints Right knee pain and light- headedness in the morning, fear of falls History of Current Condition Pt reports low energy and fear of falling, especially early in the day. 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 She does all the chores. She does not have any assistance at home. Her memory is suffering. Pt reports increased right knee pain when working in the yard and with walking a couple of blocks. Any amount of time being on her feet is bothersome. When asked, pt knows she needs to be able to go for walks and do HEP but she cannot state that she will be able to do this given her home chores and caring for her . Pt has to assist her if he falls. She hopes to get him into PT, too. Treatment Goals Patient/Caregiver Goals To get rid of the pain and be able to move more. PT-OP-C Subjective Start: 09/13/23 08:00 Freq: Status: Active Protocol: Document 10/26/23 09:50 SP (Rec: 10/26/23 10:48 SP [id number]) OP-PT Subjective Patient Comments Patient Comments Pt reports the manual helped and PT-OP-D Balance Start: 09/13/23 15:30 Freq: Status: Active Protocol: Document 09/13/23 10:26 MB (Rec: 09/13/23 15:33 MB [id number]) OP-PT Balance Assessment Standing Balance Standing Balance Comments Romberg with increased sway and SBA; pt holds PT's hand to get into B Tandem and with left foot behind, pt maintains position3 sec and with right foot behind, 10 sec Shaver Fall Scale Copyright Permission PT-OP-J Posture/Palpation/Skin Start: 09/13/23 08:00 Freq: Status: Active Protocol: Document 09/13/23 10:26 MB (Rec: 09/13/23 11:02 MB [id number]) Posture Evaluation Comments Posture Comments Standing posture in socks: forward head, rounded shoulder , increased thoracic kyphosis with convexity to the right, right iliac crest is mildly higher than the left, right inferior angle of scapula mildly higher than the left, increased Mandy angle right greater than left in standing PT-OP-K Range of Motion Start: 09/13/23 08:00 Freq: Status: Active Protocol: Document 09/13/23 10:26 MB (Rec: 09/13/23 11:07 MB [id number]) Knee Goniometric Range of Motion Knee Left Knee ROM WFL No Comments 5-121 in supine Right Knee ROM WFL No Comments 5-113 in supine PT-OP-M Strength Start: 09/13/23 08:00 Freq: Status: Active Protocol: Document 09/13/23 10:26 MB (Rec: 09/13/23 11:07 MB [id number]) Hip Strength Hip Manual Muscle Testing Left Flexion (L2) 4+ Good+ Extension (S1) 4 Good Abduction 4+ Good+ Adduction 4+ Good+ Right Flexion (L2) 4- Good- Extension (S1) 4- Good- Abduction 4- Good- Adduction 4- Good- Comments All MMT in supine Knee Strength Knee Manual Muscle Testing Left Flexion (S2) 4 Good Extension (L3) 5 Normal Right Flexion (S2) 4 Good Extension (L3) 5 Normal Ankle/Foot Strength Ankle and Foot Manual Muscle Testing Bilateral Dorsiflexion (L4) 5 Normal Toe Strength Toe Manual Muscle Testing Left Great Toe Extension 5 Normal Right Great Toe Extension 5 Normal PT-OP-Q Treatments Start: 09/13/23 08:00 Freq: Status: Active Protocol: Document 10/26/23 09:50 SP (Rec: 10/26/23 10:48 SP [id number]) Cardio Equipment Bicycle (Upright) Duration (Minutes) 10 Resistance 2>4>6 Seat Position 6>5 Other cued 50 RPMs Therapeutic Exercises Sitting Exercises self STMs Sitting Exercise Name quad: VM, VL, RF; HS, calf Equipment Used rolling pin Reps/Minutes 1 min total Comments good feedback response [place] sit to stands Equipment Used arms across chest Reps/Minutes x10 reps Comments cued feet back, hip hinge descend- improved [place] LAQs with ankle weights Side bilateral Equipment Used 2 lb ankle weights (used blue like in [place]) Reps/Minutes 2 sets of 30 reps Comments Alternating Standing Exercises [place] squats Standing Exercise Name initiated in PT Equipment Used light contact chair Reps/Minutes 2x10 Comments little tiring but ok Hip Extension Side bilateral Resistance 2 lb ankle weights Reps/Minutes x15 each side Comments no alternating [place] heel raises Resistance 2 lb ankle weights Equipment Used back chair Reps/Minutes 30 reps Comments rail support [place] hamstring curl Side bilateral Resistance 2 lb ankle weights, Equipment Used back chair Reps/Minutes 2 sets of 30 reps Comments Alternating [place] hip abduction Side bilateral Resistance 2 lb ankle weights Equipment Used back chair Reps/Minutes 2 sets of 30 reps Comments Alternating PF stretches and recovery toe raises Side bilateral Reps/Minutes 1 rep gastroc and soleus stretches Comments 30 sec Neuro Re-Education Treatment Balance Activities SLS Comments RLE 10 sec LLE 8 sec - ed tall posture, rhomboid & core & glut fac. Cued goal 30 sec tandem stance Equipment near rail Comments R ft fwd 30 sec L ft fwd 30 sec Discussed goal toward 60 sec. PT-OP-T Assessment and Plan Start: 09/13/23 08:00 Freq: Status: Active Protocol: Document 10/26/23 09:50 SP (Rec: 10/26/23 10:48 SP [id number]) Physical Therapy Assessment Goals 4 Impairment R LE weakness Senior Living Goal (LTG) Pt will present with improved right hip and knee strength comparable to LLE to improve function and gait. 10/09/23: Right LE: hip flexion : 4+/5, abduction 4+/5; knee flexion: 4-/5, extension 4+/5; left LE: hip flexion and abduction 4/5 and knee flexion and extension 4/5. RLE strength surpasses the left today LTG Duration Surpassed goal 3 Impairment Lack of HEP Senior Living Goal (LTG) Pt will perform progressive HEP with I including pelvic realignment exercises, flexibility, strengthening and balance exercises to improve pain, strength and balance. 10/09/23: Pt is trying to get through exercises and she is doing a part of them at night when she goes to bed 10/26/23: added self Rolling pin to quad >HS and calf- good feedback massage. HEP [place] ex . Stretching FIg 4 KTC, Royer , HS /c AP, pelvic realignment . LTG Duration 8 weeks progressing 10/26/23 2 Impairment LEF score 43/80 Senior Living Goal (LTG) Pt will present with improved LEF score to reflect no more than 20% impairment to improve pain and function. 10/09/23: LEF score is 55/80, much improved, and indicates 31.25% impairment LTG Duration 8 weeks 1 Impairment Evidence of imbalance [facility] Living Goal (LTG) Pt will perform WNLs on FGA to decrease fall risk. 10/09/23: FGA score is 15/30, reflecting increased fall risk LTG Duration 8 weeks Assessment Summary Assessment Pt memory challenges, cues for proper donning leg wts at ankles, count out loud so know what rep/set with use of hand out to know how many. Good tiring effort reported with no pain. Physical Therapy Plan Frequency and Duration Frequency of Treatment 1-2x/wk Duration of treatment (weeks) 8 Plan of Care Start Date 09/13/23 Plan of Care End Date 11/13/23 Therapeutic Interventions Therapeutic Interventions Balance Training,Canalithic Repositioning,Gait Training, Home Exercise Program,Joint Mobilizations,Manual Therapy, Neuromuscular Re-education, Patient/Caregiver Education, Self-Care/Home Management,Soft Tissue Mobilization,Taping, Therapeutic Activities, Therapeutic Exercises, Vestibular Rehabilitation Modalities Cold Pack/Ice Massage,Electric Stimulation,Hot Packs, Ultrasound Next Visit Focus/Plan Next Note Type Treatment Note Next Visit Plan Upright bike warm up, Next add [place] balance walking next tx, Review current [place] and other ex as needed. Future add ankle DF with ER in standing and review SLS. Gentle manual work.
--- NOTE | 2023-10-30 09:40 | PT.OTN ---
Current Diagnoses Pain in right knee (10/30/23) Other abnormalities of gait and mobility (10/30/23) Unspecified abnormalities of gait and mobility (10/30/23) Physical Therapy Treatment Note PT-OP-A Visit Information Start: 09/13/23 08:00 Freq: Status: Active Protocol: Document 10/30/23 09:02 SP (Rec: 10/30/23 09:45 SP [id number]) Out-Patient Physical Therapy Visit Information Visit Information Visit Type Treatment Note Visit Note [employer] Medicare Progress note by 11/08 Visit Start Time 09:02 Visit Stop Time 09:40 Visit Number 13 Number of BUS INSPECTOR Visits 2 Evaluation Information Evaluation Date 09/13/23 PT-OP-B Current Condition Start: 09/13/23 08:00 Freq: Status: Active Protocol: Document 09/13/23 10:26 MB (Rec: 09/13/23 10:55 MB [id number]) Current Condition History of Current Condition Onset Date 6 months of right knee pain Current Complaints Right knee pain and light- headedness in the morning, fear of falls History of Current Condition Pt reports low energy and fear of falling, especially early in the day. 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 She does all the chores. She does not have any assistance at home. Her memory is suffering. Pt reports increased right knee pain when working in the yard and with walking a couple of blocks. Any amount of time being on her feet is bothersome. When asked, pt knows she needs to be able to go for walks and do HEP but she cannot state that she will be able to do this given her home chores and caring for her . Pt has to assist her if he falls. She hopes to get him into PT, too. Treatment Goals Patient/Caregiver Goals To get rid of the pain and be able to move more. PT-OP-C Subjective Start: 09/13/23 08:00 Freq: Status: Active Protocol: Document 10/30/23 09:02 SP (Rec: 10/30/23 09:45 SP [id number]) OP-PT Subjective Patient Comments Patient Comments Pt reports needs to leave 5 min early to go get for his PT appt at 945, lives close. She stated not having pain and was able to walk [employer] 2 hrs and just tired. Did all other exercises but no weight exercises due to tiring. Pt already called [employer] to sign up for [facility] class list when will be offered again, hoping for fall. PT-OP-D Balance Start: 09/13/23 15:30 Freq: Status: Active Protocol: Document 09/13/23 10:26 MB (Rec: 09/13/23 15:33 MB [id number]) OP-PT Balance Assessment Standing Balance Standing Balance Comments Romberg with increased sway and SBA; pt holds PT's hand to get into B Tandem and with left foot behind, pt maintains position3 sec and with right foot behind, 10 sec Shaver Fall Scale Copyright Permission PT-OP-J Posture/Palpation/Skin Start: 09/13/23 08:00 Freq: Status: Active Protocol: Document 09/13/23 10:26 MB (Rec: 09/13/23 11:02 MB [id number]) Posture Evaluation Comments Posture Comments Standing posture in socks: forward head, rounded shoulder , increased thoracic kyphosis with convexity to the right, right iliac crest is mildly higher than the left, right inferior angle of scapula mildly higher than the left, increased Mandy angle right greater than left in standing PT-OP-K Range of Motion Start: 09/13/23 08:00 Freq: Status: Active Protocol: Document 09/13/23 10:26 MB (Rec: 09/13/23 11:07 MB [id number]) Knee Goniometric Range of Motion Knee Left Knee ROM WFL No Comments 5-121 in supine Right Knee ROM WFL No Comments 5-113 in supine PT-OP-M Strength Start: 09/13/23 08:00 Freq: Status: Active Protocol: Document 09/13/23 10:26 MB (Rec: 09/13/23 11:07 MB [id number]) Hip Strength Hip Manual Muscle Testing Left Flexion (L2) 4+ Good+ Extension (S1) 4 Good Abduction 4+ Good+ Adduction 4+ Good+ Right Flexion (L2) 4- Good- Extension (S1) 4- Good- Abduction 4- Good- Adduction 4- Good- Comments All MMT in supine Knee Strength Knee Manual Muscle Testing Left Flexion (S2) 4 Good Extension (L3) 5 Normal Right Flexion (S2) 4 Good Extension (L3) 5 Normal Ankle/Foot Strength Ankle and Foot Manual Muscle Testing Bilateral Dorsiflexion (L4) 5 Normal Toe Strength Toe Manual Muscle Testing Left Great Toe Extension 5 Normal Right Great Toe Extension 5 Normal PT-OP-Q Treatments Start: 09/13/23 08:00 Freq: Status: Active Protocol: Document 10/30/23 09:02 SP (Rec: 10/30/23 09:45 SP [id number]) Cardio Equipment Bicycle (Upright) Duration (Minutes) 8 Resistance 6 Seat Position 5 Other cued 50 RPMs- limited time warm up need leave early Therapeutic Exercises Standing Exercises DF /c EV Standing Exercise Name initiated in PT- stated has as HEP- HO at home counter Side bilateral Resistance AROM near rail Equipment Used is performing at home Reps/Minutes x20 Comments cued buttock tucked underneath her, DF&EV- stable Neuro Re-Education Treatment Balance Activities [place] side stepping Details [place] side side stepping- trial and added to HEP Equipment 10 ft x3 laps Comments initiated- stable no LOB (not on handout)- added to HEP, instructed near counter if needed safety- agreed but performed in open in PT and stable no sway or LOB SLS Details [place] Comments RLE 15 sec- improved by 5 sec LLE 3 sec, 5 sec - less by 3-5 sec 8/5 - ed tall posture, rhomboid & core & glut fac. Cued goal 30 sec tandem stance Details [place] Equipment near rail Comments RLE 20 sec before light contact chair LLE fwd 27 sec Discussed goal toward 60 sec. 8/5- slight less than previous tx of 30 sec bart. retro stepping Details [place] backward walking- in PT only Reps/Duration 10 ft x2 laps (hallway near rail) Comments close SBA *PRN finger glide on wall- not needed *cued kneep feet away from each other, heels scuffed x2 little sway self reovery midline. PT-OP-T Assessment and Plan Start: 09/13/23 08:00 Freq: Status: Active Protocol: Document 10/30/23 09:02 SP (Rec: 10/30/23 09:45 SP [id number]) Physical Therapy Assessment Goals 4 Impairment R LE weakness Craniologist Goal (LTG) Pt will present with improved right hip and knee strength comparable to LLE to improve function and gait. 10/09/23: Right LE: hip flexion : 4+/5, abduction 4+/5; knee flexion: 4-/5, extension 4+/5; left LE: hip flexion and abduction 4/5 and knee flexion and extension 4/5. RLE strength surpasses the left today LTG Duration Surpassed goal 3 Impairment Lack of HEP [facility] Goal (LTG) Pt will perform progressive HEP with I including pelvic realignment exercises, flexibility, strengthening and balance exercises to improve pain, strength and balance. 10/09/23: Pt is trying to get through exercises and she is doing a part of them at night when she goes to bed 10/26/23: added self Rolling pin to quad >HS and calf- good feedback massage. HEP [place] ex . Stretching FIg 4 KTC, Royer , HS /c AP, pelvic realignment . LTG Duration 8 weeks progressing 10/26/23 2 Impairment LEF score 43/80 Craniologist Goal (LTG) Pt will present with improved LEF score to reflect no more than 20% impairment to improve pain and function. 10/09/23: LEF score is 55/80, much improved, and indicates 31.25% impairment LTG Duration 8 weeks 1 Impairment Evidence of imbalance [facility] Goal (LTG) Pt will perform WNLs on FGA to decrease fall risk. 10/09/23: FGA score is 15/30, reflecting increased fall risk LTG Duration 8 weeks Assessment Summary Assessment Tx focused on balance [place] activities today for HEP progression safely. She slight decrease stable tandem stance and SLS time today which she atributes to tired from walking alot at [employer]. Cues for taller posturing and COG over AKHIL which assisted slightly less UE support light contact needed. Good open area side stepping confident but back stepping still nervous so is near rail but not needed this tx which suprised her. Cues for slower pacing and increase AKHIL for safety. Will continue to progress challenging balance activities for increased stabiltiy for community gait activities. Shortened tx due to need get for his appt at 945. Physical Therapy Plan Frequency and Duration Frequency of Treatment 1-2x/wk Duration of treatment (weeks) 8 Plan of Care Start Date 09/13/23 Plan of Care End Date 11/13/23 Therapeutic Interventions Therapeutic Interventions Balance Training,Canalithic Repositioning,Gait Training, Home Exercise Program,Joint Mobilizations,Manual Therapy, Neuromuscular Re-education, Patient/Caregiver Education, Self-Care/Home Management,Soft Tissue Mobilization,Taping, Therapeutic Activities, Therapeutic Exercises, Vestibular Rehabilitation Modalities Cold Pack/Ice Massage,Electric Stimulation,Hot Packs, Ultrasound Next Visit Focus/Plan Next Note Type Treatment Note Next Visit Plan Upright bike warm up, Continue progress [place] balance walking next tx, Review current [place] and other ex as needed, including tandem stance and SLS, side stepping, in PT rest more challenging (back stepping and progress beyond). Gentle manual work.
--- NOTE | 2023-11-01 09:00 | PT.OTN ---
Current Diagnoses Pain in right knee (11/01/23) Other abnormalities of gait and mobility (11/01/23) Unspecified abnormalities of gait and mobility (11/01/23) Physical Therapy Treatment Note PT-OP-A Visit Information Start: 09/13/23 08:00 Freq: Status: Active Protocol: Document 11/01/23 08:15 MB (Rec: 11/01/23 08:59 MB [id number]) Out-Patient Physical Therapy Visit Information Visit Information Visit Type Treatment Note Visit Start Time 08:15 Visit Stop Time 08:55 Visit Number 14 Number of URANIUM PROCESSING SUPERVISOR Visits 0 Evaluation Information Evaluation Date 09/13/23 PT-OP-B Current Condition Start: 09/13/23 08:00 Freq: Status: Active Protocol: Document 09/13/23 10:26 MB (Rec: 09/13/23 10:55 MB [id number]) Current Condition History of Current Condition Onset Date 6 months of right knee pain Current Complaints Right knee pain and light- headedness in the morning, fear of falls History of Current Condition Pt reports low energy and fear of falling, especially early in the day. 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 She does all the chores. She does not have any assistance at home. Her memory is suffering. Pt reports increased right knee pain when working in the yard and with walking a couple of blocks. Any amount of time being on her feet is bothersome. When asked, pt knows she needs to be able to go for walks and do HEP but she cannot state that she will be able to do this given her home chores and caring for her . Pt has to assist her if he falls. She hopes to get him into PT, too. Treatment Goals Patient/Caregiver Goals To get rid of the pain and be able to move more. PT-OP-C Subjective Start: 09/13/23 08:00 Freq: Status: Active Protocol: Document 11/01/23 08:15 MB (Rec: 11/01/23 08:59 MB [id number]) OP-PT Subjective Patient Comments Patient Comments Pt thinks her knee is doing better. She is doing her exercises some. She is through [employer] program and has plenty of exercises at home. PT-OP-D Balance Start: 09/13/23 15:30 Freq: Status: Active Protocol: Document 09/13/23 10:26 MB (Rec: 09/13/23 15:33 MB [id number]) OP-PT Balance Assessment Standing Balance Standing Balance Comments Romberg with increased sway and SBA; pt holds PT's hand to get into B Tandem and with left foot behind, pt maintains position3 sec and with right foot behind, 10 sec Shaver Fall Scale Copyright Permission PT-OP-J Posture/Palpation/Skin Start: 09/13/23 08:00 Freq: Status: Active Protocol: Document 09/13/23 10:26 MB (Rec: 09/13/23 11:02 MB [id number]) Posture Evaluation Comments Posture Comments Standing posture in socks: forward head, rounded shoulder , increased thoracic kyphosis with convexity to the right, right iliac crest is mildly higher than the left, right inferior angle of scapula mildly higher than the left, increased Mandy angle right greater than left in standing PT-OP-K Range of Motion Start: 09/13/23 08:00 Freq: Status: Active Protocol: Document 09/13/23 10:26 MB (Rec: 09/13/23 11:07 MB [id number]) Knee Goniometric Range of Motion Knee Left Knee ROM WFL No Comments 5-121 in supine Right Knee ROM WFL No Comments 5-113 in supine PT-OP-M Strength Start: 09/13/23 08:00 Freq: Status: Active Protocol: Document 09/13/23 10:26 MB (Rec: 09/13/23 11:07 MB [id number]) Hip Strength Hip Manual Muscle Testing Left Flexion (L2) 4+ Good+ Extension (S1) 4 Good Abduction 4+ Good+ Adduction 4+ Good+ Right Flexion (L2) 4- Good- Extension (S1) 4- Good- Abduction 4- Good- Adduction 4- Good- Comments All MMT in supine Knee Strength Knee Manual Muscle Testing Left Flexion (S2) 4 Good Extension (L3) 5 Normal Right Flexion (S2) 4 Good Extension (L3) 5 Normal Ankle/Foot Strength Ankle and Foot Manual Muscle Testing Bilateral Dorsiflexion (L4) 5 Normal Toe Strength Toe Manual Muscle Testing Left Great Toe Extension 5 Normal Right Great Toe Extension 5 Normal PT-OP-Q Treatments Start: 09/13/23 08:00 Freq: Status: Active Protocol: Document 11/01/23 08:15 MB (Rec: 11/01/23 08:59 MB [id number]) Cardio Equipment Bicycle (Upright) Duration (Minutes) 10 Resistance 6 Seat Position 5 Therapeutic Exercises Other Exercises HEP review and MMT Other Exercise Name D/cd hip rotator stretch and re-ed in all other exercise handouts Comments LE strengthening 3x/wk including [place] exercises, stretches and alignment Neuro Re-Education Treatment Balance Activities FGA Comments Performed again today and score is 11/30, indicating increased fall risk PT-OP-T Assessment and Plan Start: 09/13/23 08:00 Freq: Status: Active Protocol: Document 11/01/23 08:15 MB (Rec: 11/01/23 08:59 MB [id number]) Physical Therapy Assessment Goals 4 Impairment R LE weakness Schedule Supervisor Goal (LTG) Pt will present with improved right hip and knee strength comparable to LLE to improve function and gait. 10/09/23: Right LE: hip flexion : 4+/5, abduction 4+/5; knee flexion: 4-/5, extension 4+/5; left LE: hip flexion and abduction 4/5 and knee flexion and extension 4/5. RLE strength surpasses the left today LTG Duration Surpassed goal 3 Impairment Lack of HEP Custodial Goal (LTG) Pt will perform progressive HEP with I including pelvic realignment exercises, flexibility, strengthening and balance exercises to improve pain, strength and balance. 10/09/23: Pt is trying to get through exercises and she is doing a part of them at night when she goes to bed 10/26/23: added self Rolling pin to quad >HS and calf- good feedback massage. HEP [place] ex . Stretching FIg 4 EDC, Royer , HS /c AP, pelvic realignment . 11/01/23: Pt has progressive alignment, flexibility, strengthening and balance exercises. She has some memory impairment that is a challenge and handouts are provided and pt is performing exercises occasioinally. Full HEP review today through handouts: pelvic realignment, hamstring, calf and Royer stretches, d/c hip rotator stretch, [place] balance and strengthening exercises, hip extension. Pt can or cannot perform rolling pin if she desires. LTG Duration Progressed 2 Impairment LEF score 43/80 Schedule Supervisor Goal (LTG) Pt will present with improved LEF score to reflect no more than 20% impairment to improve pain and function. 10/09/23: LEF score is 55/80, much improved, and indicates 31.25% impairment 11/01/23 LEF score is 59/80, much improved and indicating 26.25% impairment LTG Duration Progressed 1 Impairment Evidence of imbalance Schedule Supervisor Goal (LTG) Pt will perform WNLs on FGA to decrease fall risk. 10/09/23: FGA score is 15/30, reflecting increased fall risk 11/01/23 FGA score is 11/30, and not improved today LTG Duration Did not make a lot of progress Assessment Summary Assessment Over PT course, PT has assisted pt with pelvic realignment, flexibility, and strengthening and balance. Pt has improved in LE strength. Her pain symptoms and functional reports have improved. Her compliance with HEP has not been consistent and this is partially d/t memory and caring for her . Pt con't with severe imbalance. [facility] and has reviewed with patient over many PT visits. Compliance is something that PT con't to educate pt but PT is unable to do more with that . Community balance class in the future may be a good option for pt and information also provided about this. One more review of exercises today in preparation of d/c. PT may benefit from having her memory checked/MEDICAL APPLIANCE MAKER for cognition assessment in the future.
== END 2023-11-02 13:27 | disposition home or self-care (01) ==
LOC: PHYS 08:15
PROVIDERS: Family Provider Internal Medicine; PCP Internal Medicine; Referring Provider Internal Medicine; Visit Provider Internal Medicine
DX: M25.561 Pain in right knee (principal); R26.9 Unspecified abnormalities of gait and mobility; R26.89 Other abnormalities of gait and mobility
CPT/HCPCS: 97110; 97112; 97116; 97140; 97162; 97535

== ENCOUNTER → 2024-02-02 09:47 | Outpatient (CLI) | payer MEDICARE, SELFPAY ==
--- NOTE | 2024-02-02 09:48 | DI.RAD.S_ITS ---
PROCEDURE: XR KNEE RT 3V INDICATIONS: knee pain TECHNIQUE: 3 views of the knee were acquired. COMPARISON: None. FINDINGS: Bones: There are no osseous abnormalities Joints: Moderate patellofemoral and medial tibial femoral degenerative change appreciated. Soft tissues: No soft tissue abnormality. IMPRESSION: Moderate degeneration Dictated by: Cal Dowell M.D. on 02/05/2024 at 9:34 Approved by: Cal Dowell M.D. on 02/05/2024 at 9:35
== END ==
PROVIDERS: Family Provider Internal Medicine; PCP Internal Medicine; Referring Provider Internal Medicine; Visit Provider Internal Medicine
DX: M25.561 Pain in right knee (principal)
CPT/HCPCS: 73562